=== PATIENT | female | born 1990 | race Caucasian/White ===

== ENCOUNTER 2023-08-09 13:42 | Emergency (ER) | payer BC, SELFPAY ==
[2023-08-09 14:45] VITALS: BP 138/86; PULSE 84; RESP 20; TEMP 36.7; O2SAT 99; BMI 41.0
--- NOTE | 2023-08-09 15:04 | EXP.UTC ---
Discharge Plan Disposition Patient Disposition: Home, Self-Care Condition: Good Prescriptions Prescriptions: New meclizine 25 mg tablet 25 mg PO TID PRN (Reason: dizziness) Qty: 12 0RF ondansetron 4 mg tablet,disintegrating 4 mg PO Q8H PRN (Reason: nausea and vomiting) Qty: 10 0RF No Action cetirizine 10 mg tablet 10 mg PO DAILY methylphenidate HCl [Concerta] 54 mg tablet extended release 24hr 54 mg PO DAILY gabapentin 300 mg capsule 300 mg PO DAILY mirtazapine 15 mg tablet 15 mg PO DAILY hydroxyzine pamoate 25 mg capsule 25 mg PO HS duloxetine 60 mg capsule,delayed release(DR/EC) 60 mg PO DAILY Xiidra 5 % dropperette 1 drp ophthalmic (eye) DAILY Referrals Follow up/Referrals: Provider,Referral, MD [Primary Care Provider] - See instructions Activity Restrictions/Add. Instructions Additional Instructions/Restrictions: Take meclizine as prescribed for dizziness Follow up with your Family Doctor if symptoms continue Slow steady movements Follow up with Eye Doctor for eye exam Straight to ER if any life threatening symptoms Clinical Impressions Clinical Impression: Vertigo Instructions Patient Instructions: DI for Vertigo, Vertigo, Meclizine, DI for Nausea -- Adult Discharge ED Provider: Dionne Manzanares [facility] General Stated complaint: possible flu Mode of Arrival: Ambulatory Source of Information: Patient Limitations: No Limitations Time Seen by Provider: 08/09/23 15:04 Description of Symptoms (Recalled from Triage Doc. by RN): PATIENT C/O STOMACH CRAMPS, NAUSEA, VOMITING, DIZZINESS, HEADACHE, LIGHT/SOUND SENSITIVITY, AND VISION CHANGES THAT STARTED WEDNESDAY NIGHT HEENT Symptoms (Recalled from RN notes): Yes Resp Symptoms (Recalled from RN notes): No Skin Symptoms (Recalled from RN notes): No MS Symptoms (Recalled from RN notes): No Functional Status (Recalled from RN notes): WNL History of Present Illness Provider Complaint: Patient states that she has a hx of vertigo and she has been under alot of stress States that she has been having dizziness on and off, nausea and vomiting on and off States that she does limit her gluten intake and she eat gluten on Wednesday and not sure if that may have caused that or not, chills and did have a little light sensativity over the weekend and she has been having that on and off but today she was still feeling a little dizzy and having nausea so she came in worried she may have flu Related Data Home Medications Medication Instructions Recorded Confirmed cetirizine 10 mg tablet 10 mg PO DAILY 08/09/23 08/09/23 duloxetine 60 mg capsule,delayed 60 mg PO DAILY 08/09/23 08/09/23 release gabapentin 300 mg capsule 300 mg PO DAILY 08/09/23 08/09/23 hydroxyzine pamoate 25 mg capsule 25 mg PO HS 08/09/23 08/09/23 lifitegrast 5 % eye drops in a 1 drp ophthalmic (eye) DAILY 08/09/23 08/09/23 dropperette (Xiidra) methylphenidate HCl 54 mg 54 mg PO DAILY 08/09/23 08/09/23 tablet,extended release 24 hr (Concerta) mirtazapine 15 mg tablet 15 mg PO DAILY 08/09/23 08/09/23 Previous Rx's Medication Instructions Recorded meclizine 25 mg tablet 25 mg PO TID PRN dizziness #12 tabs 08/09/23 ondansetron 4 mg disintegrating 4 mg PO Q8H PRN nausea and 08/09/23 tablet vomiting #10 tabs Allergies Allergy/AdvReac Type Severity Reaction Status Date / Time No Known Allergies Allergy Verified 08/09/23 15:03 Worker's Comp Is this a Worker's Comp case?: No [facility] Disclaimer: The information contained in this section may have been updated after the patient was seen, as this information can be updated by other users. Medical History (Updated 08/09/23 @ 15:37 by Dionne Manzanares APRN) Anxiety Depression Surgical History (Updated 08/09/23 @ 15:05 by Jessica Back RN) History of nasal septoplasty Social History Smoking Status: Unknown if ever smoked alcohol intake: never current occupational status: unemployed Travel in the last 8 weeks: None ROS Obtained: Yes All systems reviewed & no additional complaints except as documented and Yes Systems reviewed as appropriate & no additional complaints except as documented Constitutional Constitutional: Reports system reviewed and no additional complaints, except as documented, Reports as per HPI and Reports headache(s) (on and off over the weekend) Eyes Eyes: Reports system reviewed and no additional complaints, except as documented, Reports as per HPI, Denies blurry vision, Denies diplopia, Denies eye discharge, Denies floaters, Denies loss of vision and Reports sensitivity to light (at times on and off for awhile) ENT Ears, Nose, Mouth, and Throat: Reports system reviewed and no additional complaints, except as documented, Reports as per HPI, Reports dizziness (with movement), Reports headache(s) (on and off over the weekend) and Reports vertigo Cardiovascular Cardiovascular: Reports system reviewed and no additional complaints, except as documented and Reports as per HPI Respiratory Respiratory: Reports system reviewed and no additional complaints, except as documented and Reports as per HPI Gastrointestinal Gastrointestingal: Reports system reviewed and no additional complaints, except as documented, as per HPI, nausea and vomiting Genitourinary Female Genitourinary: Reports system reviewed and no additional complaints, except as documented and Reports as per HPI Musculoskeletal Musculoskeletal: Reports system reviewed and no additional complaints, except as documented and Reports as per HPI Neurologic Neurologic: Reports system reviewed and no additional complaints, except as documented, Reports as per HPI, Reports dizziness (with movement), Reports headache(s) (on and off over the weekend), Denies loss of vision and Reports vertigo Physical Exam General General appearance: alert and in no apparent distress Eye Eye exam: Present normal appearance, PERRL and EOMI ENT ENT exam: Present mucous membranes moist Chest Chest inspection: Present normal inspection and symmetric chest wall rise Respiratory Respiratory exam: Present normal lung sounds bilaterally; Absent respiratory distress or wheezes Cardiovascular Cardiovascular exam: Present regular rate, normal rhythm and normal heart sounds Abdominal Exam Abdominal exam: Present soft and normal bowel sounds; Absent distention or tenderness Neurological Exam Neurological exam: Present alert, oriented X3 and normal gait Medical Decision Making Jarek Inquiry Pt receiving controlled substance: No Jarek was queried for this patient: No Vital Signs: 08/09/23 14:45 Temperature 98.0 F Temperature Source Oral Pulse Rate [Left Brachial] 84 Respiratory Rate 20 Blood Pressure [Left Arm] 138/86 Blood Pressure Mean [Left Arm] 103 Blood Pressure Source [Left Arm] Automatic Cuff Blood Pressure Position [Left Arm] Sitting 02 Sat by Pulse Oximetry 99 Oxygen Delivery Method Room Air Lab Data Lab results reviewed: Yes I reviewed the patient's lab results. Medical Decision Narrative: Patient states that she is no longer taking hydroxyzine Discussed transfer to the ED for further work up and evaluation and patient declined States that she use to take Meclizine for dizziness medication discussed with pharmacy
[2023-08-09 15:05] LABS: UTC Influenza A Antigen Negative (Negative); UTC Influenza B Antigen Negative (Negative)
[2023-08-09 15:23] LABS: UTC Pregnancy Test, Urine Negative (Negative)
[2023-08-09 15:28] VITALS: BP 138/86; PULSE 84; RESP 20; TEMP 36.7; O2SAT 99
== END 2023-08-09 15:44 | disposition home or self-care (01) ==
PROVIDERS: Emergency Provider Nurse Practitioner
DX: R42 Dizziness and giddiness (principal); R11.2 Nausea with vomiting, unspecified; R51.9 Headache, unspecified
CPT/HCPCS: 81025; 87804; 99204; 99212; G0463

== ENCOUNTER 2023-09-13 12:38 | Outpatient (CLI) | payer BC, SELFPAY ==
[2023-09-13 13:24] LABS: Basophils # 0.1 K/mm3 (0-0.2); Basophils % 1.2 % (0.1-2.0); Eosinophils # 0.2 K/mm3 (0.0-0.4); Eosinophils % 3.1 % (0.1-12.0); Hematocrit 43.9 % (37.0-47.0); Hemoglobin 14.3 g/dL (12.2-16.2); Lymphocytes # 1.7 K/mm3 (0.7-4.5); Lymphocytes % 24.3 % (10-50); Mean Corpuscular HGB Conc 32.6 g/dL (31.8-35.4); Mean Corpuscular Hemoglobin 28.9 pg (27.0-31.2); Mean Corpuscular Volume 88.4 fl (81-99); Mean Platelet Volume 8.3 fl (7.4-10.4); Monocytes # 0.3 K/mm3 (0.1-1.0); Monocytes % 3.8 % (1.7-9.3); Neutrophils # 4.7 K/mm3 (1.8-7.8); Neutrophils % 67.6 % (37.0-80.0); Platelet Count 252 K/mm3 (142-424); Red Blood Count 4.96 M/mm3 (4.20-5.40); Red Cell Distribution Width 14.8 % (11.5-17.5); White Blood Count 6.9 K/mm3 (4.8-10.8)
[2023-09-13 14:19] LABS: Alanine Aminotransferase 23 U/L (12-78); Albumin Level 4.1 g/dl (3.5-5.0); Albumin/Globulin Ratio 1.6 (1.1-1.8); Alkaline Phosphatase 125 U/L (38-126); Anion Gap 11.1 mEq/L (5-15); Aspartate Amino Transferase 29 U/L (14-36); Bilirubin,Total 0.6 mg/dl (0.2-1.3); Blood Urea Nitrogen 16 mg/dl (7-17); Calcium 9.5 mg/dl (8.4-10.2); Carbon Dioxide 27 mmol/L (22.0-30.0); Chloride 107 mmol/L (98-107); Chol/HDL Ratio 5.7 (1-3.5); Cholesterol 238 mg/dl (140-200); Estimated Glomerular Filt Rate 79 ml/min (>60); GFR (African American) 96 ML/MIN (>60); Globulin 2.5 g/dL (1.3-3.2); Glucose 103 mg/dl (74-100); HDL Cholesterol 42 mg/dl (40-60); Potassium 4.1 mmoL/L (3.5-5.1); Sodium 141 mmol/L (136-145); Total Protein,Serum 6.6 g/dl (6.3-8.2); Triglycerides 134 mg/dl (30-150); VLDL Cholesterol 27 mg/dL (0-40)
[2023-09-13 14:30] LABS: Direct LDL Cholesterol 133.45 mg/dL (100-129)
[2023-09-13 14:34] LABS: Free T4 (Free Thyroxine) 0.98 ng/dl (0.78-2.19)
[2023-09-13 14:36] LABS: 25-OH Vitamin D, Total 43.4 ng/mL (30-100)
[2023-09-13 14:49] LABS: Thyroid Stimulating Hormone 0.09 uIU/mL (0.465-4.68)
[2023-09-13 16:01] LABS: Hemoglobin A1C 5.4 % (4.0-6.0)
== END 2023-09-13 23:59 ==
LOC: RT 12:39
PROVIDERS: PCP Student in an Organized Health Care Education/Training Program; Visit Provider Student in an Organized Health Care Education/Training Program
DX: R42 Dizziness and giddiness (principal); R41.0 Disorientation, unspecified; E66.9 Obesity, unspecified; Z68.43 Body mass index [BMI] 50.0-59.9, adult; Z13.29 Encounter for screening for other suspected endocrine disorder; Z13.21 Encounter for screening for nutritional disorder; Z13.1 Encounter for screening for diabetes mellitus; Z79.899 Other long term (current) drug therapy
CPT/HCPCS: 36415; 80053; 80061; 82306; 83036; 84439; 84443; 85025; 93225

== ENCOUNTER 2023-09-23 14:06 | Emergency (ER) | payer BC, SELFPAY ==
[2023-09-23 14:07] VITALS: BP 129/85; PULSE 93; RESP 15; TEMP 36.6; O2SAT 95; BMI 38.4
[2023-09-23 14:30] VITALS: BP 132/80; PULSE 85; O2SAT 94
--- NOTE | 2023-09-23 14:44 | CT_ITS ---
FINAL REPORT TECHNIQUE: Axial images were obtained of the lumbar spine by computed tomography. Coronal and sagittal reconstruction process performed. This study was performed with techniques to keep radiation doses as low as reasonably achievable (ALARA). Individualized dose reduction techniques using automated exposure control or adjustment of mA and/or kV according to the patient''s size were employed. CLINICAL HISTORY: low back pain with new L sciatica COMPARISON: None FINDINGS: Lumbar vertebrae show normal height. There is no malalignment. There is 14 degrees of lumbar scoliosis convex to the right. There are mild hypertrophic changes in the lower lumbar facets. There is moderate to high-grade right neuroforaminal narrowing at L5-S1. IMPRESSION: Degenerative changes as above without acute bony abnormality. Reviewed, Interpreted and Dictated by Krish Byers MD Transcribed by Aracelis Cody Authenticated and [facility]
[2023-09-23 14:47] LABS: Microscopic, Urine URINE MICROSCOPIC (MICROSCOPIC)
--- NOTE | 2023-09-23 14:47 | ED_ITS ---
Discharge Plan Disposition Patient Disposition: Home, Self-Care Chief Complaint: Back Pain/Injury Prescriptions Prescriptions: No Action ondansetron 4 mg tablet,disintegrating 4 mg PO Q8H PRN (Reason: nausea and vomiting) Qty: 20 0RF cetirizine 10 mg tablet 10 mg PO DAILY methylphenidate HCl [Concerta] 54 mg tablet extended release 24hr 54 mg PO DAILY mirtazapine 15 mg tablet 15 mg PO DAILY duloxetine 60 mg capsule,delayed release(DR/EC) 120 mg PO DAILY gabapentin 300 mg capsule 900 mg PO HS Referrals Follow up/Referrals: Kat Gill PA [Primary Care Provider] - See instructions Activity Restrictions/Add. Instructions Additional Instructions/Restrictions: At this time it was felt you are safe to be discharged home. If new or worsening symptoms please do not hesitate to return the emergency department. Please follow-up with your family doctor as you are able for possible referral to physical therapy with Kwame Polanco here at the hospital. Please continue to follow-up with your pain practice as discussed. Clinical Impressions Clinical Impression: Back pain, Radiculopathy Instructions Patient Instructions: DI for Low Back Pain Discharge ED Provider: Mona Pollack General Adult HPI <Mona Pollack DO - Last Filed: 09/23/23 15:44> General Chief complaint: Back Pain/Injury Stated complaint: back pain, no accident Time Seen by Provider: 09/23/23 14:12 Mode of Arrival: Ambulatory Source of Information: Patient Limitations: No Limitations Description of Symptoms (Recalled from ER Triage Doc. by RN): patient ambulatory to ED with complaints of acute on chronic back pain that has progressively gotten worse x1week. Pain in lower back and radiating down left leg. Patient only able to tolerate seating position today. Experiencing no relief with medication. History of Present Illness HPI narrative: This patient is a 43-year-old female with history of chronic pain on gabapentin, generalized anxiety disorder, and major depressive disorder presenting to the emergency department for evaluation with concern for back pain. According to the patient, she has had chronic low back pain from disc herniation for a while now. She takes gabapentin for the pain. Typically the pain is localized to her back, but she has had new pain that is radiating from her back all the way down her left leg, especially into her left heel. She states that it also is wrapping around into her groins. Secondary to the pain, she has had inability to walk for the last 2 days. She has pins and needle sensation down her left leg, but she denies saddle anesthesia, incontinence, retention, or other concerns. Her tried to get her to come in yesterday but she was in so much pain that she was unable to move. Today her pain is better, but she is still having trouble walking secondary to the pain. She denies any fevers, chills, vomiting, changes in bowel movements, urinary symptoms, or other concerns. She has tried Advil, ice, and her home gabapentin with no improvement. She has not had back imaging for years now. Related Data Home Medications Medication Instructions Recorded Confirmed cetirizine 10 mg tablet 10 mg PO DAILY 08/09/23 09/14/23 methylphenidate HCl 54 mg 54 mg PO DAILY 08/09/23 09/14/23 tablet,extended release 24 hr (Concerta) mirtazapine 15 mg tablet 15 mg PO DAILY 08/09/23 09/14/23 duloxetine 60 mg capsule,delayed 120 mg PO DAILY 09/03/23 09/14/23 release gabapentin 300 mg capsule 900 mg PO HS 09/03/23 09/14/23 Previous Rx's Medication Instructions Recorded ondansetron 4 mg disintegrating 4 mg PO Q8H PRN nausea and 09/03/23 tablet vomiting #20 tabs Allergies Allergy/AdvReac Type Severity Reaction Status Date / Time gluten AdvReac Abdominal Uncoded 09/14/23 13:49 Pain lactose AdvReac Abdominal Uncoded 09/14/23 13:49 Pain PFSH <Mona Pollack DO - Last Filed: 09/23/23 15:44> [facility] Disclaimer: The information contained in this section may have been updated after the patient was seen, as this information can be updated by other users. Medical History Arthritis Vertigo Osteoarthritis PTSD (post-traumatic stress disorder) Depression Anxiety Surgical History History of nasal septoplasty Family History Other Cancer Cutaneous lupus erythematosus Heart attack Hypertension Thyroid disorder Social History (Reviewed 09/23/23 @ 14:49 by SUZANNE Montez Smoking Status: Current every day smoker alcohol intake: never current occupational status: unemployed and disabled Travel in the last 8 weeks: None <Mona Pollack DO - Last Filed: 09/23/23 15:44> ROS Obtained: Yes All systems reviewed & no additional complaints except as documented Physical Exam <Mona Pollack DO - Last Filed: 09/23/23 15:44> General General appearance: alert and obese Comment: Uncomfortable appearing Head Head exam: atraumatic and normocephalic Eye Eye exam: Present normal appearance, PERRL and EOMI ENT ENT exam: Present normal exam, normal oropharynx, mucous membranes moist and normal external ear exam Neck Neck exam: Present normal inspection, full ROM and trachea midline; Absent tenderness Chest Chest inspection: Present normal inspection and symmetric chest wall rise; Absent tenderness Respiratory Respiratory exam: Present normal lung sounds bilaterally; Absent respiratory distress, wheezes, stridor or accessory muscle use Cardiovascular Cardiovascular exam: Present regular rate and normal rhythm Abdominal Exam Abdominal exam: Present soft; Absent distention, tenderness or guarding Extremities Exam Extremities exam: Present normal inspection, full ROM and normal capillary refill; Absent tenderness or edema Back Exam Back exam: Present full ROM, tenderness, muscle spasm, paraspinal tenderness and vertebral tenderness Neurological Exam Neurological exam: Present alert, oriented X3, CN II-XII intact and normal gait; Absent motor sensory deficit Psychiatric Psychiatric exam: Present normal affect and normal mood Skin Skin exam: Present warm and dry Medical Decision Making <Mona Pollack DO - Last Filed: 09/23/23 15:44> Medical Records Medical records reviewed: Yes I reviewed the patient's medical records. Jarek Inquiry Pt receiving controlled substance: No Vital Signs: 09/23/23 14:07 09/23/23 14:30 09/23/23 15:11 Temperature 97.8 F Temperature Source Oral Pulse Rate 85 85 Pulse Rate [Right] 93 H Respiratory Rate 15 20 Blood Pressure 132/80 120/76 Blood Pressure [Right Arm] 129/85 Blood Pressure Mean 90 Blood Pressure Mean [Right Arm] 99 Blood Pressure Source [Right Arm] Automatic Cuff Blood Pressure Position [Right Arm] Sitting 02 Sat by Pulse Oximetry 95 94 L 95 Oxygen Delivery Method Room Air 09/23/23 15:30 09/23/23 16:00 Temperature Temperature Source Pulse Rate 84 78 Pulse Rate [Right] Respiratory Rate 18 Blood Pressure 120/77 124/77 Blood Pressure [Right Arm] Blood Pressure Mean 90 92 Blood Pressure Mean [Right Arm] Blood Pressure Source [Right Arm] Blood Pressure Position [Right Arm] 02 Sat by Pulse Oximetry 93 L 95 Oxygen Delivery Method Lab Data Lab results reviewed: Yes I reviewed the patient's lab results. Lab Results 09/23/23 14:09: Urine Color Yellow, Urine Appearance Clear, Urine pH 5.5, Ur Specific Edmond >= 1.030, Urine Protein Negative, Urine Glucose (UA) Trace, Urine Ketones Trace, Urine Blood Negative, Urine Nitrate Negative, Urine Bilirubin Negative, Urine Urobilinogen 0.2, Ur Leukocyte Esterase Negative, Urine RBC None, Urine WBC None, Ur Squamous Epith Cells Occasional, Calcium Oxalate Crystal 1+, Urine Bacteria Trace, Urine HCG, Qual Negative Orders (Tests/Meds): ED MEDICATIONS Discontinued Medications Generic Name Dose Route Start Last Admin Trade Name Freq PRN Reason Stop Dose Admin Acetaminophen 1,000 mg 09/23/23 14:43 09/23/23 14:56 Acetaminophen 500mg Tab PO 09/23/23 14:44 1,000 mg ONCE ONE Administration Dexamethasone Sodium Phosphate 10 mg 09/23/23 14:43 09/23/23 14:55 Dexamethasone 4mg/Ml 1ml Vial IV 09/23/23 14:44 10 mg ONCE ONE Administration Diazepam 5 mg 09/23/23 14:43 09/23/23 14:56 Diazepam 5mg Tablet PO 09/23/23 14:44 5 mg ONCE ONE Administration Ketorolac Tromethamine 30 mg 09/23/23 14:43 09/23/23 14:56 Ketorolac 30mg/Ml Vial IV 09/23/23 14:44 30 mg ONCE ONE Administration Lidocaine 1 each 09/23/23 14:43 09/23/23 14:56 Lidocaine 5% Transdermal Patch TP 09/23/23 14:44 1 each ONCE ONE Administration ORDERS Category Date Time Status CT lumbar spine wo con Stat Cat Scan 09/23/23 14:44 Completed Urinalysis and Microscopic Stat Lab 09/23/23 14:09 Completed Urine , HCG Qual. Stat Lab 09/23/23 14:09 Completed Medical Decision Narrative: In summary, this patient is a 43-year-old female presenting to the Emergency Department for evaluation of severe low back pain radiating down her left leg and around to her bilateral groins. Differential diagnoses considered include but are not limited to lumbar strain with sciatica, disc herniation, lumbar fracture, musculoskeletal strain/sprain, pyonephritis, ureterolithiasis, cystitis, cauda equina syndrome, spinal cord compression. Ruling out the most morbid conditions drove assessment. On exam, the patient is uncomfortable appearing with low back tenderness. Her pain is likely musculoskeletal given the nature and the fact that it radiates down her left leg, however she has unusual sensation of radiating around to her groin, which she states is new. She has no saddle anesthesia, incontinence, retention, or other findings that would suggest spinal cord compression or cauda equina syndrome. No fevers or high risk activity that would suggest epidural/spinal abscess. I had a discussion with the patient regarding the fact that MRI is the best test for the spine, however given that she does not have alarm symptoms for spinal compression, we cannot get this here. After discussion, she would like to proceed with CT scan for evaluation. Workup included urinalysis, urine test, and CT lumbar spine without IV contrast. Patient was signed out to the oncoming provider, Dr. Lawrence, pending workup, r eassessment, and disposition. <Florentino Lawrence MD - Last Filed: 09/23/23 16:32> Vital Signs: 09/23/23 14:07 09/23/23 14:30 09/23/23 15:11 Temperature 97.8 F Temperature Source Oral Pulse Rate 85 85 Pulse Rate [Right] 93 H Respiratory Rate 15 20 Blood Pressure 132/80 120/76 Blood Pressure [Right Arm] 129/85 Blood Pressure Mean 90 Blood Pressure Mean [Right Arm] 99 Blood Pressure Source [Right Arm] Automatic Cuff Blood Pressure Position [Right Arm] Sitting 02 Sat by Pulse Oximetry 95 94 L 95 Oxygen Delivery Method Room Air 09/23/23 15:30 09/23/23 16:00 Temperature Temperature Source Pulse Rate 84 78 Pulse Rate [Right] Respiratory Rate 18 Blood Pressure 120/77 124/77 Blood Pressure [Right Arm] Blood Pressure Mean 90 92 Blood Pressure Mean [Right Arm] Blood Pressure Source [Right Arm] Blood Pressure Position [Right Arm] 02 Sat by Pulse Oximetry 93 L 95 Oxygen Delivery Method Lab Data Lab Results 09/23/23 14:09: Urine Color Yellow, Urine Appearance Clear, Urine pH 5.5, Ur Specific Edmond >= 1.030, Urine Protein Negative, Urine Glucose (UA) Trace, Urine Ketones Trace, Urine Blood Negative, Urine Nitrate Negative, Urine Bilirubin Negative, Urine Urobilinogen 0.2, Ur Leukocyte Esterase Negative, Urine RBC None, Urine WBC None, Ur Squamous Epith Cells Occasional, Calcium Oxalate Crystal 1+, Urine Bacteria Trace, Urine HCG, Qual Negative Orders (Tests/Meds): ED MEDICATIONS Discontinued Medications Generic Name Dose Route Start Last Admin Trade Name Alexa PRN Reason Stop Dose Admin Acetaminophen 1,000 mg 09/23/23 14:43 09/23/23 14:56 Acetaminophen 500mg Tab PO 09/23/23 14:44 1,000 mg ONCE ONE Administration Dexamethasone Sodium Phosphate 10 mg 09/23/23 14:43 09/23/23 14:55 Dexamethasone 4mg/Ml 1ml Vial IV 09/23/23 14:44 10 mg ONCE ONE Administration Diazepam 5 mg 09/23/23 14:43 09/23/23 14:56 Diazepam 5mg Tablet PO 09/23/23 14:44 5 mg ONCE ONE Administration Ketorolac Tromethamine 30 mg 09/23/23 14:43 09/23/23 14:56 Ketorolac 30mg/Ml Vial IV 09/23/23 14:44 30 mg ONCE ONE Administration Lidocaine 1 each 09/23/23 14:43 09/23/23 14:56 Lidocaine 5% Transdermal Patch TP 09/23/23 14:44 1 each ONCE ONE Administration ORDERS Category Date Time Status CT lumbar spine wo con Stat Cat Scan 09/23/23 14:44 Completed Urinalysis and Microscopic Stat Lab 09/23/23 14:09 Completed Urine , HCG Qual. Stat Lab 09/23/23 14:09 Completed Medical Decision Narrative: In summary, this patient is a 43-year-old female presenting to the Emergency Department for evaluation of severe low back pain radiating down her left leg and around to her bilateral groins. Differential diagnoses considered include but are not limited to lumbar strain with sciatica, disc herniation, lumbar fracture, musculoskeletal strain/sprain, pyonephritis, ureterolithiasis, cystitis, cauda equina syndrome, spinal cord compression. Ruling out the most morbid conditions drove assessment. On exam, the patient is uncomfortable appearing with low back tenderness. Her pain is likely musculoskeletal given the nature and the fact that it radiates down her left leg, however she has unusual sensation of radiating around to her groin, which she states is new. She has no saddle anesthesia, incontinence, retention, or other findings that would suggest spinal cord compression or cauda equina syndrome. No fevers or high risk activity that would suggest epidural/spinal abscess. I had a discussion with the patient regarding the fact that MRI is the best test for the spine, however given that she does not have alarm symptoms for spinal compression, we cannot get this here. After discussion, she would like to proceed with CT scan for evaluation. Workup included urinalysis, urine test, and CT lumbar spine without IV contrast. Patient was signed out to the oncoming provider, Dr. Lawrence, pending workup, reassessment, and disposition. Florentino Lawrence: Upon assumption of care patient was hemodynamically stable. Urinalysis interpreted by me and not consistent with infection, no hematuria. CT imaging of the lumbar spine shows degenerative changes without acute bony abnormality. Upon repeat evaluation patient was ambulatory at bedside without red flag symptoms and is appropriate for outpatient management at this time. Critical Care <Mona Pollack, DO - Last Filed: 09/23/23 15:44> Critical Care Time Critical Care Time: No
[2023-09-23 14:55] LABS: Appearance,Urine CLEAR (Clear); Bilirubin,Urine Negative (Negative); Blood, Urine Negative (Negative); Color,Urine YELLOW (Yellow); Glucose,Urine (UA) TRACE (Negative); Ketones,Urine TRACE (Negative); Leukocyte Esterase,Urine Negative (Negative); Nitrate,Urine Negative (Negative); PH,Urine 5.5 (5.0-8.5); Protein,Urine Negative (Negative); Specific Gravity, Urine >= 1.030 (1.005-1.030); Urobilinogen,Urine 0.2 EU/dl (0.2)
[2023-09-23] MEDS: DEXAMETHASONE 4MG/ML 1ML VIAL 10 MG IV (14:55)
[2023-09-23] MEDS: LIDOCAINE 5% TRANSDERMAL PATCH 1 EACH TP (14:56)
[2023-09-23] MEDS: KETOROLAC 30MG/ML VIAL 30 MG IV (14:56)
[2023-09-23] MEDS: ACETAMINOPHEN 500MG TAB 1000 MG PO (14:56)
[2023-09-23] MEDS: diazePAM 5MG TABLET 5 MG PO (14:56)
[2023-09-23 14:57] LABS: Urine Pregnancy, HCG Qual. Negative (Negative)
[2023-09-23 15:11] VITALS: BP 120/76; PULSE 85; RESP 20; O2SAT 95
[2023-09-23 15:30] VITALS: BP 120/77; PULSE 84; O2SAT 93
[2023-09-23 15:39] LABS: Bacteria,Urine Trace /lpf; Calcium Oxalate Crystals,Urine 1+ /lpf; Squamous Epithelial Cell,Urine Occasional #/hpf (0-5)
[2023-09-23 16:00] VITALS: BP 124/77; PULSE 78; RESP 18; O2SAT 95
--- NOTE | 2023-09-23 16:29 | PC.NURSE ---
Patient ambulated with TRN around nurses station and tolerated well. patient states that back pain is better rating pain 4/10.
[2023-09-23 16:33] VITALS: BP 124/77; PULSE 82; RESP 14; TEMP 36.7; O2SAT 98
== END 2023-09-23 16:50 | disposition home or self-care (01) ==
PROVIDERS: Emergency Provider Emergency Medicine; PCP Student in an Organized Health Care Education/Training Program
DX: M54.16 Radiculopathy, lumbar region (principal); M54.50 Low back pain, unspecified; G89.29 Other chronic pain; F41.1 Generalized anxiety disorder; F32.9 Major depressive disorder, single episode, unspecified; F17.200 Nicotine dependence, unspecified, uncomplicated
CPT/HCPCS: 72131; 81001; 81025; 96374; 96375; 99284

== ENCOUNTER 2023-09-27 19:30 | Outpatient (CLI) | payer BC, SELFPAY ==
[2023-09-27 19:21] LABS: Free Thyroxine Index 3.2 ug/dL (5.93-13.13); T4 (Thyroxine) 10.2 ug/dl (5.53-11.0); Triiodothryronine (T3) Uptake 31 % (23.5-40.5)
[2023-09-29 09:09] LABS: Thyroid Peroxidase Antibodies 18 IU/mL (0-34)
[2023-09-30 07:18] LABS: Thyroid Stimulating Immunoglob <0.10 IU/L (0.00-0.55)
== END 2023-09-27 23:59 ==
LOC: LAB.DROPOF 19:30
PROVIDERS: PCP Student in an Organized Health Care Education/Training Program; Visit Provider Student in an Organized Health Care Education/Training Program
DX: R79.89 Other specified abnormal findings of blood chemistry (principal)
CPT/HCPCS: 84436; 84443; 84445; 84479; 86376

== ENCOUNTER 2023-11-11 13:47 | Outpatient (POV) | payer BC, SELFPAY ==
--- OUTSIDE RECORDS SUMMARY | 2023-11-11 13:49 | XMS_ITS ---
Author Name Unknown Address [address] [place] [address] Phone Organization [facility] , [facility] Address [address] [place] [address] Phone Care Team Providers Care Slide Machine Tender Name Role Phone Alfredo Gilbert MD Unavailable [phone] Iban King Primary Care Provider [phone] Problems Includes: Active, inactive, and resolved Problems All Visits Onset Date Resolved Date Provider Condition S tatus Lower Back Pain 10/25/2023 Padma blount MD Active Last Documented On 4 1:42PM ; [facility] Joint Pain in Both Knees 09/01/2023 Lake underwood MD Active Last Documented On 4 2:38PM ; [facility] Plan of Treatment Instructions to patient Lose weight Last Documented On 4 1:43PM ; [facility], [facility] Assessments Includes: Assessments for all patient encounters Findings Encounter Date Overweight NEW PROBLEM/EST PT with Padma Crane MD 10/25/2023 Last Documented On 4 3:50PM ; [facility], [facility] Instructions Includes: Instructions for all patient encounters Instructions to patient Lose weight Last Documented On 4 1:43PM ; [facility], [facility] Medical Equipment - Implanted Devices Includes: Current and historical Devices No Medical Equipment Recorded Medications Includes: Current and historical Medications No Medications Taken Medications Administered Includes: Administered Medications in patient's chart No Administered Medications Recorded Vital Signs Includes: Vital Signs from 11/10/2022 through 11/11/2023 Vital Name 10/25/2023 01:43P 09/01/2023 02: 44P Height (in) 69 69 Weight (lb) 278 265 Body Mass Index 41.1 39.1 Body Surface Area 2.4 2.3 Note: HL cl Last Documented: On 10/25/2023 1:44PM ; [facility] On 09/01/2023 2:44PM ; [facility], [facility] Results Includes: Results from 11/10/2022 through 11/11/2023 No Results Recorded For Specified Dates History of Present Illness History of Present Illness not supported for this document type No History of Present Illness Recorded Social History Description Last Updated Tobacco non-user 09/01/2023 Last Documented On 4 11:20AM ; [facility], [facility] No caffeine use 09/01/2023 Last Documented On 4 11:20AM ; [facility] No recent change in diet 09/01/2023 Last Documented On 4 11:20AM ; [facility] Not a current smoker. 09/01/2023 Last Documented On 4 11:20AM ; [facility], [facility] Not exercising regularly 09/01/2023 Last Documented On 4 11:20AM ; [facility] Not using alcohol 09/01/2023 Last Documented On 4 11:20AM ; [facility] Not using drugs 09/01/2023 Last Documented On 4 11:20AM ; [facility] Smoking Status Unknown Procedures and Surgical History Includes: Procedures from 11/10/2022 through 11/11/2023 Procedures Code Diagnosis Performing Provider Service Location Service Date X-RAY EXAM KNEE 4 OR MORE (RIGHT) 48752 Unilateral primary osteoarthritis, right knee Lake Castle MD [facility] 09/01/2023 Last Documented On 4 2:09PM ; [facility], [facility] X-RAY EXAM KNEE 4 OR MORE (LEFT) 80013 Unilateral primary osteoarthritis, left knee Lake Castle MD [facility] 09/01/2023 Last Documented On 4 2:09PM ; [facility] Medical History Includes: Medical History in patient's chart Description Last Updated Past medical and surgical history non-co ntributory 09/01/2023 Last Documented On 4 11:20AM ; [facility] Family History Includes: Family History in patient's chart Description Last Updated No significant family history 09/01/2023 Last Documented On 4 11:20AM ; [facility] Review of Systems Review of Systems not supported for this document type No Review of Systems Recorded Mental Status Description No anxiety Functional Status No Functional Status Recorded Physical Exam Physical Exam not supported for this document type No Physical Exam Recorded Allergies Includes: Active, inactive, and resolved Allergies No Known Allergies Encounters Includes: Encounters from 11/10/2022 through 11/11/2023 Encounter Provider Location Date Check-In Time Check-Out Time Diagnosis NEW PROBLEM/EST PT Padma miguel MD [facility] 10/25/19 24 1:29PM 2:23PM Overweight Physician Specified Lake Castle MD [facility] 09/01/19 24 2:29PM 3:43PM Insurance Includes: Active Insurance Policies Plan Name Member ID Group # Subscriber Relationship Effect franco Dates 1 - [facility] Medicaid [id number] Aracelis Adler Self Clinical Notes Includes: Signed Clinical Notes starting from 06/11/2022 * Progress note Date Encounter Last Documented by 10/25/2023 NEW PROBLEM/EST PT Last document ed on 10/25/2023; 3:50 PM, Padma Crane MD; [facility] Active Problems & Conditions - Joint Pain in Both Knees - Lower Back Pain Chief Complaint The Chief Complaint is: Low back pain. Referred Here Referred by Self. History of Present Illness Aracelis Adler is a 43 year old female. - Allergy list reviewed - Problem list reviewed - Medication list reviewed - Previous history of new onset pain Injury is not work related or an automotive accident - Patient pain level from 1-10: 9 - Yes, previous treatment. - History of Home Exercise Medications used for this condition: This is a 43-year-old female seeing me for the 1st time today. She is here for evaluation of low back pain. She said she was told in the past that she is 3 herniated discs in her back and was told that she could have surgery but it probably would not work. Today, she reports severe pain down her left leg all the way into her heel. She also reported that over the past week she is lost control of her bowel and bladder multiple times. She denies any numbness in the areas. Current Medication - None Past Medical/Surgical History Past medical and surgical history non-contributory. Social History Not a current smoker. Current diet: No recent change in diet. Caffeine use: No caffeine use. Tobacco use: Tobacco non-user. Alcohol: Not using alcohol. Drug Use: Not using drugs. Habits: Not exercising regularly. Allergies - No Known Allergies Family History No significant family history Review Of Systems Systemic: Not feeling tired, no recent weight loss, and no recent weight gain. Head: No headache and no sinus pain. Eyes: No vision problems, no Cataracts, no Glasses/Contacts, and no Glaucoma. Otolaryngeal: No hearing loss and no tinnitus. Cardiovascular: No chest pain or discomfort, no palpitations, no Hypertension, and no High Cholesterol. Pulmonary: No daytime asthma symptoms and no chronic cough. No wheezing. Gastrointestinal: No heartburn and no abdominal pain. No Indigestion, no Acid Reflux, no Peptic Ulcer, no GI Stomach Bleed, and no Ulcers. Endocrine: No hot flashes, no muscle weakness, no Diabetes, no Hypothyroid, and no Hyperthyroid. Hematologic: No easy bleeding, no tendency for easy bruising, and no Anemia. Musculoskeletal: No Arthritis and no lower back pain. No soft tissue swelling and no localized joint pain. Neurological: No dizziness, no convulsions, and no numbness. Psychological: No anxiety, no emotional lability, no depression, and no insomnia. Not crying for no reason. Skin: No dry skin. No Ulcers, no Scars, and no rash. Allergic and Immunologic: No complaint of seasonal allergic reaction. Physical Findings - Vitals taken 10/25/2023 01:43 pm HL Height 69 in Weight 278 lbs Body Mass Index 41.1 kg/m2 Body Surface Area 2.4 m2 General: Alert and Oriented A&Ox3 Focused Musculoskeletal Exam of the Spine: Patient is able to ambulate in the room without assistive device No focal tenderness to palpation in the Lumbar Spine Motor HF KE AD EHL GS Right 5/5 5/5 5/5 5/5 5/5 Left 5/5 5/5 5/5 5/5 5/5 Sensation L2 L3 L4 L5 S1 Right 2 2 2 2 2 Left 2 2 2 1 1 Patellar reflex is 2+ bilaterally Achilles reflex is 2+ on the right, 1+ on the left No ankle clonus Symmetric, palpable posterior tibialis pulse bilaterally Tests X-ray lumbar spine. AP, lateral, L5-S1 spot shot views reviewed by me. There does appear to be transitional anatomy with no obvious fracture or spondylolisthesis User Defined 5 This is a 43-year-old female with concern for neurogenic bladder and potential cauda equina syndrome. It was interesting meeting Aracelis in the office today. I am going to send her right across the street to the [place] emergency room for a emergent stat MRI of the lumbar spine. We will follow up the results and discuss treatment options. We have contact [facility] ER to advise the patient will be coming over for symptoms and we recommend MRI lumbar spine. Assessment - Overweight Previous Tests Imaging: X-Ray: An X-ray was performed 06/03/2023 Liban @ [facility]. Counseling/Education - Lose weight Practice Management Use of tobacco assessment performed. Care Team - TED King Notes This dictation was done with voice recognition software and may contain errors and omissions. * Progress note Date Encounter Last Documented by 09/01/2023 Physician Specified Last shoaib woodward on 09/05/2023; 11:20 AM, Lake Castle MD; [facility], [facility] Active Problems & Conditions - Joint Pain in Both Knees Chief Complaint The Chief Complaint is: Bilateral knee pain. Referred Here Referred by. History of Present Illness Aracelis Adler is a 43 year old female. - Allergy list reviewed - Problem list reviewed - Medication list reviewed - Previous history of new onset pain Injury is not work related or an automotive accident - Patient pain level from 1-10: 7 - No previous treatment. Current Medication - None Past Medical/Surgical History Past medical and surgical history non-contributory. Social History Not a current smoker. Current diet: No recent change in diet. Caffeine use: No caffeine use. Tobacco use: Tobacco non-user. Alcohol: Not using alcohol. Drug Use: Not using drugs. Habits: Not exercising regularly. Allergies - No Known Allergies Family History No significant family history Review Of Systems Systemic: Not feeling tired, no recent weight loss, and no recent weight gain. Head: No headache and no sinus pain. Eyes: No vision problems, no Cataracts, no Glasses/Contacts, and no Glaucoma. Otolaryngeal: No hearing loss and no tinnitus. Cardiovascular: No chest pain or discomfort, no palpitations, no Hypertension, and no High Cholesterol. Pulmonary: No daytime asthma symptoms and no chronic cough. No wheezing. Gastrointestinal: No heartburn and no abdominal pain. No Indigestion, no Acid Reflux, no Peptic Ulcer, no GI Stomach Bleed, and no Ulcers. Endocrine: No hot flashes, no muscle weakness, no Diabetes, no Hypothyroid, and no Hyperthyroid. Hematologic: No easy bleeding, no tendency for easy bruising, and no Anemia. Musculoskeletal: No Arthritis and no lower back pain. No soft tissue swelling and no localized joint pain. Neurological: No dizziness, no convulsions, and no numbness. Psychological: No anxiety, no emotional lability, no depression, and no insomnia. Not crying for no reason. Skin: No dry skin. No Ulcers, no Scars, and no rash. Allergic and Immunologic: No complaint of seasonal allergic reaction. Physical Findings - Vitals taken 09/01/2023 02:44 pm cl Height 69 in Weight 265 lbs Body Mass Index 39.1 kg/m2 Body Surface Area 2.3 m2 Assessment HISTORY OF PRESENT ILLNESS The patient is a 43-year-old female who presents for evaluation of her bilateral knees. She reports she has had a longstanding history of at least 10 years of bilateral knee pain. Typically, the right is greater than left, but currently they seem to be equally bad. She has had conservative measures over the years including activity modification and physical therapy. She reports she has had a gel injection in the right knee 6 years ago, which did seem to help her at that point. In addition, she had a gel injection into the left knee, maybe more like 2 years ago, which was slightly less beneficial. She is quite fed up with her persistent symptoms of pain and really wants to discuss potentially moving forward with a total knee arthroplasty. PHYSICAL EXAM Well-appearing female in no acute distress. Evaluation of the right lower extremity shows skin to be intact. No effusion is present within the knee. She has got range of motion 0 to 125 degrees of flexion. She is stable to varus and valgus stress as well as anterior and posterior drawer. She is able to do a one straight leg raise with good quad activation. She has got 1A Destiney. She has got pain along the medial joint line, which reproduces the area of her symptoms. Evaluation of the left lower extremity shows skin to be intact. No effusion is present within the knee. She has got range of motion 0 to 125 degrees of flexion. She is stable to varus and valgus stress as well as anterior and posterior drawer. She is able to do a one straight leg raise with good quad activation. She has got 1A Destiney. She has got pain along the medial joint line, which reproduces the area of her symptoms. RESULTS Imaging Four views of the right knee and four views of the left knee were ordered and reviewed by me today. They do show near complete loss of joint space of the medial compartment of both the right and left knee. The patellofemoral joint of both the right and left knee shows moderate loss of joint space. No evidence of fractures or dislocations. ASSESSMENT AND PLAN 1. Moderate to advanced arthritic changes of the bilateral knees. We had a long discussion today regarding treatment options. Given her young age, I would be very hesitant to agree to want to move forward with total knees at this point. She has trialed conservative measures, but I think it may make sense to try further injections before deciding to proceed. Ultimately, I think if she really just wants to the joint replacement, I probably would refer her to one of my partners who does revision surgeries as I think given her young age, she might be at risk of needing a conversion to a revision prosthetic at a young age and I would want to get her set up with someone who would be more familiar with doing that from the beginning. We will plan on getting the gel injections precertified and for now, the plan will be for her to follow up with me to repeat those injections and see if we can buy her some time. She has tried offloader braces in both knees in the past, and I have encouraged her to use those intermittently as needed as well. We will have her return for the injections after they have been preapproved. If she would prefer to have the conversation about knee replacement, I will work on getting her a second opinion for that. Previous Tests Imaging: X-Ray: An X-ray was performed. Notes This dictation was done with voice recognition software and may contain errors and omissions. Practice Management Use of tobacco assessment performed. Care Team - TED King
--- OUTSIDE RECORDS SUMMARY | 2023-11-11 13:49 | XMS_ITS ---
Care Plan - [facility], [facility] Created on: November 11, 2023 Aracelis Adler : 02/24/1980 Sex: Female Author Name Unknown Address [address] [place] [address] [place] [address] Phone Organization [facility] , [facility] Address [address] [place] [address] Phone Care Team Providers Care Route Sales Delivery Drivers Supervisor Name Role Phone Alfredo Gilbert MD Unavailable [phone] Iban King Primary Care Provider [phone]
--- OUTSIDE RECORDS SUMMARY | 2023-11-11 13:50 | XMS_ITS | Clinical Summary ---
Author Name Unknown Address [address] [place] [address] Phone Organization [facility] , [facility] Address [address] [place] [address] Phone Care Team Providers Care Manager Asset Name Role Phone Alfredo Gilbert MD Unavailable [phone] Iban King Primary Care Provider [phone] Reason for Visit and Chief Complaint The Chief Complaint is: Low back pain Problems Includes: Problems addressed during this encounter and other active Problems Current Visit Onset Date Resolved Date Provider Conditio n Status Lower Back Pain 10/25/2023 Padma blount MD Active Last Documented On 4 1:42PM ; [facility], [facility] Past Visits Onset Date Resolved Date Provider Condition Status Joint Pain in Both Knees 09/01/2023 Lake Castle MD Active Last Documented On 4 2:38PM ; [facility], [facility] Plan of Treatment Instructions to patient Lose weight Last Documented On 4 1:43PM ; [facility], [facility] Assessments Includes: Assessments from this encounter Findings - Overweight - Last Documented On 10/25/2023 3:50PM ; [facility], [facility] We have contact [facility] ER to advise the patient will be coming over for symptoms and we recommend MRI lumbar spine. - Last Documented On 10/25/2023 3:50PM ; [facility], [facility] Instructions Includes: Instructions from this encounter Instructions to patient Lose weight Last Documented On 4 1:43PM ; [facility] Medical Equipment - Implanted Devices Includes: Current Devices No Medical Equipment Recorded Medications Includes: Medications discussed during this encounter and other current Medications No Medications Taken Medications Administered Includes: Administered Medications from this encounter No Administered Medications Recorded Vital Signs Includes: Vital Signs from this encounter Vital Name 10/25/2023 01:43P Height (in) 69 Weight (lb) 278 Body Mass Index 41.1 Body Surface Area 2.4 Note: HL Last Documented: On 10/25/2023 1:44PM ; [facility], [facility] Results Includes: Results discussed during this encounter No Results Recorded For Specified Dates History of Present Illness Includes: History of Present Illness from this encounter ED Adler is a 43 year old female. [...] She denies any numbness in the areas. Social History Description Last Updated Tobacco non-user 09/01/2023 Last Documented On 4 1:43PM ; [facility], [facility] No caffeine use 09/01/2023 Last Documented On 4 1:43PM ; [facility], [facility] No recent change in diet 09/01/2023 Last Documented On 4 1:43PM ; [facility], [facility] Not a current smoker. 09/01/2023 Last Documented On 4 1:43PM ; [facility], [facility] Not exercising regularly 09/01/2023 Last Documented On 4 1:43PM ; [facility], [facility] Not using alcohol 09/01/2023 Last Documented On 4 1:43PM ; [facility] Not using drugs 09/01/2023 Last Documented On 4 1:43PM ; [facility] Smoking Status Unknown Procedures and Surgical History Includes: Procedures from this encounter Procedures Code Diagnosis Performing Provider Service L ocation Service Date use of tobacco assessment performed 1000F Last Documented On 4 1:43PM ; [facility] an X-ray was performed 06/03/2023 LSpine @ [facility] [id number] Last Documented On 4 1:43PM ; [facility] Medical History Includes: Medical History addressed during this encounter Description Last Updated Past medical and surgical history non-co ntributory 09/01/2023 Last Documented On 4 1:43PM ; [facility] Family History Includes: Family History addressed during this encounter Description Last Updated No significant family history 09/01/2023 Last Documented On 4 1:43PM ; [facility] Review of Systems Includes: Review of Systems from this encounter Systemic: Not feeling tired, no recent weight [...] Immunologic: No complaint of seasonal allergic reaction. Mental Status Includes: Mental Status from this encounter Description No anxiety Functional Status Includes: Functional Status from this encounter No Functional Status Recorded Physical Exam Includes: Physical Exam from this encounter Allergies Includes: Active Allergies No Known Allergies Encounters Encounter Provider Location Date Check-In Time Check-Out Time Diagnosis NEW PROBLEM/EST PT Padma blount MD [facility] 24 1:29PM 2:23PM Overweight Insurance Includes: Active Insurance Policies Plan Name Member ID Group # Subscriber Relationship Effect franco Dates 1 - [facility] Medicaid [id number] Aracelis Adler Self Clinical Notes Includes: Clinical Notes from this encounter * Progress note Date Encounter Last Documented by 10/25/2023 NEW PROBLEM/EST PT Last document ed on 10/25/2023; 3:50 PM, Padma Crane MD; [facility] Active Problems & Conditions - [...] her right across the street to the [place] emergency room for a emergent stat MRI of the lumbar spine. We will follow up the results and discuss treatment options. We have contact [facility] ER to advise the patient will be coming over for symptoms and we recommend MRI lumbar spine. Assessment - Overweight Previous Tests Imaging: X-Ray: An X-ray was performed 06/03/2023 Liban @ [facility]. Counseling/Education - Lose weight Practice Management Use of tobacco assessment performed. Care Team - TED King Notes This dictation was done with voice recognition software and may contain errors and omissions.
--- OUTSIDE RECORDS SUMMARY | 2023-11-11 13:50 | XMS_ITS | Clinical Summary ---
Author Name Unknown Address [address] [place] [address] [place] [address] Phone Organization [facility] , [facility] Address [address] [place] [address] Phone Care Team Providers Care Coroner Forensic Technician Name Role Phone Alfredo Gilbert MD Unavailable [phone] Iban King Primary Care Provider [phone] Reason for Visit and Chief Complaint The Chief Complaint is: bilateral knee pain Problems Includes: Problems addressed during this encounter and other active Problems Current Visit Onset Date Resolved Date Provider Ed arevalo Status Lower Back Pain 10/25/2023 Padma blount MD Active Last Documented On 4 1:42PM ; [facility] Joint Pain in Both Knees 09/01/2023 Lake underwood MD Active Last Documented On 4 2:38PM ; [facility], [facility] Plan of Treatment No Plan of Treatment Recorded Assessments Includes: Assessments from this encounter Findings HISTORY OF PRESENT ILLNESS - Last Documented On 09/05/2023 11:20AM ; [facility], [facility] The patient is a 43-year-old female who presents for evaluation of her bilateral knees. - Last Documented On 09/05/2023 11:20AM ; [facility], [facility] She reports she has had a longstanding [...] moving forward with a total knee arthroplasty. - Last Documented On 09/05/2023 11:20AM ; [facility] PHYSICAL EXAM - Last Documented On 09/05/2023 11:20AM ; [facility] Well-appearing female in no acute distress. - Last Documented On 09/05/2023 11:20AM ; [facility] Evaluation of the right lower extremity shows [...] which reproduces the area of her symptoms. - Last Documented On 09/05/2023 11:20AM ; [facility] Evaluation of the left lower extremity shows [...] which reproduces the area of her symptoms. - Last Documented On 09/05/2023 11:20AM ; [facility] RESULTS - Last Documented On 09/05/2023 11:20AM ; [facility] Imaging - Last Documented On 09/05/2023 11:20AM ; [facility] Four views of the right knee and four views of the left knee were ordered and reviewed by me today. They do show near complete loss of joint space of the medial compartment of both the right and left knee. The patellofemoral joint of both the right and left knee shows moderate loss of joint space. No evidence of fractures or dislocations. - Last Documented On 09/05/2023 11:20AM ; [facility], [facility] ASSESSMENT AND PLAN - Last Documented On 09/05/2023 11:20AM ; [facility], [facility] 1. Moderate to advanced arthritic changes of the bilateral knees. - Last Documented On 09/05/2023 11:20AM ; [facility], [facility] We had a long discussion today regarding [...] getting her a second opinion for that. - Last Documented On 09/05/2023 11:20AM ; [facility], [facility] Medical Equipment - Implanted Devices Includes: Current Devices No Medical Equipment Recorded Medications Includes: Medications discussed during this encounter and other current Medications No Medications Taken Medications Administered Includes: Administered Medications from this encounter No Administered Medications Recorded Vital Signs Includes: Vital Signs from this encounter Vital Name 09/01/2023 02:44P Height (in) 69 Weight (lb) 265 Body Mass Index 39.1 Body Surface Area 2.3 Note: cl Last Documented: On 09/01/2023 2:44PM ; [facility], [facility] Results Includes: Results discussed during this encounter [...] from 1-10: 7 - No previous treatment. Social History Description Last Updated Tobacco non-user 09/01/2023 Last Documented On 4 11:20AM ; [facility] No caffeine use 09/01/2023 Last Documented On 4 11:20AM ; [facility] No recent change in diet 09/01/2023 Last Documented On 4 11:20AM ; [facility] Not a current smoker. 09/01/2023 Last Documented On 4 11:20AM ; [facility] Not exercising regularly 09/01/2023 Last Documented On 4 11:20AM ; [facility] Not using alcohol 09/01/2023 Last Documented On 4 11:20AM ; [facility] Not using drugs 09/01/2023 Last Documented On 4 11:20AM ; [facility] Smoking Status Unknown Procedures and Surgical History Includes: Procedures from this encounter Procedures Code Diagnosis Performing Provider Service Location Service Date X-RAY EXAM KNEE 4 OR MORE (RIGHT) 57549 Unilateral primary osteoarthritis, right knee Lake Castle MD [facility] 09/01/2023 Last Documented On 4 2:09PM ; [facility] X-RAY EXAM KNEE 4 OR MORE (LEFT) 38864 Unilateral primary osteoarthritis, left knee [facility] MD [facility] 09/01/2023 Last Documented On 4 2:09PM ; [facility] use of tobacco assessment performed 1000F Last Documented On 4 2:39PM ; [facility] an X-ray was performed [id number] Last Documented On 4 2:39PM ; [facility] Medical History Includes: Medical History addressed during this encounter Description Last Updated Past medical and surgical history non-co ntributory 09/01/2023 Last Documented On 4 11:20AM ; [facility] Family History Includes: Family History addressed during this encounter Description Last Updated No significant family history 09/01/2023 Last Documented On 11:20AM ; [facility] Review of Systems Includes: Review of Systems [...] Location Date Check-In Time Check-Out Time Diagnosis Physician Specified [facility] 09/01/19 24 2:29PM 3:43PM Insurance Includes: Active Insurance Policies Plan Name Member ID Group # Subscriber Relationship Effect franco Dates 1 - [facility] Medicaid [id number] Aracelis Leone Clinical Notes Includes: Clinical Notes from this encounter * Progress note Date Encounter Last Documented by 09/01/2023 Physician Specified Last shoaib woodward on 09/05/2023; 11:20 AM, Lake Castle MD; [facility] Active Problems & Conditions - Joint Pain [...]
[2023-11-11 14:36] VITALS: BP 135/85; PULSE 101; RESP 18; O2SAT 98; BMI 39.1
--- NOTE | 2023-11-11 15:51 | EXP.PAIN.OV ---
HPI Data of Consult Patient: new to practice Consult date: 11/11/23 Requesting Physician: Mona Gilbert APRN Primary Care Provider: Ashley Smith APRN Consult Narrative Reason for consult: Low back pain, bilateral knee pain History of present illness: Ms. Adler is a 43 year old female who presents today as a new patient. She is a referral from [facility] office. Today she rates her pain a 5 out of 10. Patient states her pain is throughout her low back and radiating down into her bilateral knees. Patient states this has been going on for some time unrelated to any specific injury or trauma. Patient does state that she knows she needs to have knee replacements due to having constant pain and that she has been told it is [id number]. Patient does states she has advanced osteoarthritis due to excessive exercise as a child. Patient does state that she has been experiencing spasms and that they are short-lived but they still cause worsening pain symptoms. She states the constant aching, throbbing sensation with sharp shooting pains does interfere with her ability perform activities of daily living such as cooking and cleaning. Patient does state that she did originally go to the medical center orthopedics however they did imaging and stated there was nothing of significant finding. Patient states she then went to Ortho since see where they did imaging and stated she had a herniated disc around the L3-L4 level. Patient states that she is scheduled to follow-up with them in 6 weeks and that they were trying more conservative treatment. Patient does state that she is going to physical therapy after she leaves her appointment here to try traction. Patient has tried [id number] Tylenol and ibuprofen along with heat and ice and muscle relaxers at night with minimal relief. She states she was given a 10-day dose of steroids. Patient states she has in the past had what she believes was SI injections and that she did see a pain clinic in [place] however that where she moved here a couple months ago she is trying to establish care. Patient is interested in any help we may be able to provide. She does state that she is currently managed with gabapentin. Her Jarek has been reviewed and is appropriate. CC: Mona Gilbert APRN [facility] Disclaimer: The information contained in this section may have been updated after the patient was seen, as this information can be updated by other users. Medical History (Updated 11/11/23 @ 15:56 by Mona Gilbert APRN) Herniated disc Normal colonoscopy Arthritis Vertigo Osteoarthritis PTSD (post-traumatic stress disorder) Depression Anxiety Surgical History History of nasal septoplasty Family History Other Cancer Cutaneous lupus erythematosus Heart attack Hypertension Thyroid disorder Social History Smoking Status: Current every day smoker alcohol intake: never current occupational status: other Travel in the last 8 weeks: None Review of Systems Review of Systems Review of systems:: pertinent systems reviewed and negative unless documented below Review of systems (narrative): Review of Systems: General: No recent weight changes, no fever, no sleep disturbances Respiratory: No cough, no shortness of air, no recurring pulmonary infections Cardiovascular/peripheral vascular: No chest pain, no palpitations, no edema, no shortness of breath Gastrointestinal: No new onset incontinence, normal bowel movements reported Genitourinary: No new onset incontinence Musculoskeletal: Low back pain, bilateral leg pain, bilateral knee pain Psychiatric: [Normal mood/affect] Neurological: [Denies weakness in extremities], [denies balance issues] Meds Home Medications and Allergies Home Medications Medication Instructions Recorded Confirmed Type methylphenidate HCl 54 mg 54 mg PO DAILY 08/09/23 11/10/23 History tablet,extended release 24 hr (Concert[facility]) mirtazapine 15 mg tablet 15 mg PO DAILY 08/09/23 11/10/23 History duloxetine 60 mg capsule,delayed 120 mg PO DAILY 09/03/23 11/10/23 History release gabapentin 300 mg capsule 900 mg PO HS 09/03/23 11/10/23 History cyclobenzaprine 7.5 mg tablet 7.5 mg PO TID PRN muscle spasm #20 09/27/23 09/27/23 Rx tabs cetirizine 10 mg tablet 10 mg PO DAILY #30 tabs 10/27/23 11/10/23 Rx New Prescriptions to Start Prescriptions: Allergies Allergy/AdvReac Type Severity Reaction Status Date / Time gluten AdvReac Abdominal Uncoded 11/10/23 13:05 Pain lactose AdvReac Abdominal Uncoded 05/15/24 13:05 Pain Objective Vital signs: Pulse Resp BP Pulse Ox O2 Del Method 101 H 18 135/85 98 Room Air 11/11/23 14:36 11/11/23 14:36 11/11/23 14:36 11/11/23 14:36 11/11/23 14:36 Narrative: Physical Exam: General: Alert and oriented x3, no acute distress, pleasant and cooperative Lungs: Respirations even and unlabored, symmetrical chest expansion Eyes: PERRL Musculoskeletal: Flexion and extension of lumbar [spine] somewhat guarded secondary to pain, [antalgic gait noted] Neurological: Speech clear, no gross sensory deficit Assessment and Plan *Assessment and plan (1) Low back pain: Status: Acute Qualifiers: Chronicity: chronic Back pain laterality: bilateral Sciatica presence: with sciatica Sciatica laterality: bilateral sciatica Qualified Code(s): M54.42 - Lumbago with sciatica, left side; M54.41 - Lumbago with sciatica, right side; G89.29 - Other chronic pain Category: Medical Code(s): M54.50 - Low back pain, unspecified (2) Bilateral knee pain: Status: Acute Qualifiers: Chronicity: chronic Qualified Code(s): M25.561 - Pain in right knee; M25.562 - Pain in left knee; G89.29 - Other chronic pain Category: Medical Code(s): M25.561 - Pain in right knee; M25.562 - Pain in left knee (3) Lumbar radiculopathy: Status: Acute Category: Medical Code(s): M54.16 - Radiculopathy, lumbar region Plan Patient is experiencing significant pain in her low back. I did discuss with patient that she may benefit from lumbar epidural steroid injection however the patient states she is not interested in this option. I will order the patient a compounded cream. Patient will return to clinic in 1 month for reevaluation of symptoms and plan of care. Patient has been instructed to contact the clinic with any concerns before the next appointment. Dr. Pérez has reviewed this note and agrees with this plan of care. This note was dictated using voice recognition software and make contain errors or omissions.
== END 2023-11-11 23:59 | disposition home or self-care (01) ==
LOC: SC.PAIN 13:48
PROVIDERS: PCP Nurse Practitioner Family; Visit Provider Nurse Practitioner Family
DX: M54.42 Lumbago with sciatica, left side (principal); M54.41 Lumbago with sciatica, right side; G89.29 Other chronic pain; M25.561 Pain in right knee; M25.562 Pain in left knee; M54.16 Radiculopathy, lumbar region
CPT/HCPCS: 99202; G0463

== ENCOUNTER 2023-11-25 14:14 | Outpatient (CLI) | payer BC, SELFPAY ==
[2023-11-25 16:04] LABS: Erythrocyte Sedimentation Rate 21 mm/hr (0-20)
[2023-11-25 18:11] LABS: 25-OH Vitamin D, Total 37.4 ng/mL (30-100)
[2023-11-25 18:13] LABS: T4 (Thyroxine) 7.8 ug/dl (5.53-11.0)
[2023-11-25 18:16] LABS: Free T4 (Free Thyroxine) 1.02 ng/dl (0.78-2.19)
[2023-11-25 18:27] LABS: Thyroid Stimulating Hormone 1.37 uIU/mL (0.465-4.68)
[2023-11-25 18:46] LABS: Vitamin B12 923 pg/mL (239-931)
[2023-11-25 20:18] LABS: Ferritin 14.5 ng/ml (6.24-137)
[2023-11-27 08:17] LABS: Thyroid Peroxidase Antibodies 21 IU/mL (0-34); Triiodothyronine (T3) Free 3.4 pg/mL (2.0-4.4)
[2023-11-27 09:42] LABS: RA Latex Turbid. <10.0 IU/mL (<14.0)
[2023-11-29 14:59] LABS: Antinuclear Antibodies, IFA Negative (.)
[2023-11-29 17:09] LABS: Thyroglobulin Level 6.9 IU/mL (0.0-0.9)
== END 2023-11-25 23:59 | disposition home or self-care (01) ==
LOC: LAB 14:14
PROVIDERS: PCP Nurse Practitioner Family; Visit Provider Nurse Practitioner Family
DX: E01.0 Iodine-deficiency related diffuse (endemic) goiter (principal); E66.01 Morbid (severe) obesity due to excess calories; Z68.43 Body mass index [BMI] 50.0-59.9, adult; M25.50 Pain in unspecified joint; R70.0 Elevated erythrocyte sedimentation rate
CPT/HCPCS: 36415; 82306; 82607; 82728; 84436; 84439; 84443; 84481; 84550; 85651; 86038; 86376; 86431; 86800

== ENCOUNTER 2023-11-29 14:43 | Outpatient (CLI) | payer BC, SELFPAY ==
--- NOTE | 2023-11-29 14:43 | US_ITS ---
FINAL REPORT TECHNIQUE: Ultrasound images of the thyroid were obtained. CLINICAL HISTORY: thyroid enlargement FINDINGS: The right lobe of the thyroid measures 4.4 x 1.9 x 1.3 cm. It is normal in echogenicity. The left lobe of the thyroid measures 3.6 x 1.8 x 1.3 cm. It is normal in echogenicity. There is a calcified nodule in the right lobe measuring 4 mm, TR 2. There is a 4 mm, solid, hypoechoic nodule in the left lobe with microcalcifications, TR 5 IMPRESSION: 4 mm TR 5 nodule in the left lobe. Recommend 6-12-month follow-up. Reviewed, Interpreted and Dictated by Warren Maradiaga III, MD Transcribed by Flower Cantor Authenticated and . [facility]
== END 2023-11-29 23:59 | disposition home or self-care (01) ==
LOC: RAD 14:43
PROVIDERS: PCP Nurse Practitioner Family; Visit Provider Nurse Practitioner Family
DX: E01.0 Iodine-deficiency related diffuse (endemic) goiter (principal); Z83.49 Family history of other endocrine, nutritional and metabolic diseases
CPT/HCPCS: 76536

== ENCOUNTER 2023-12-13 14:53 | Outpatient (CLI) | payer BC, SELFPAY ==
[2023-12-16 13:11] LABS: EBV Ab VCA, IgM <36.0 U/mL (0.0-35.9)
== END 2023-12-13 23:59 | disposition home or self-care (01) ==
LOC: LAB.DROPOF 14:53
PROVIDERS: PCP Nurse Practitioner Family; Visit Provider Nurse Practitioner Family
DX: B27.90 Infectious mononucleosis, unspecified without complication (principal); R53.83 Other fatigue
CPT/HCPCS: 82533; 86664; 86665

== ENCOUNTER 2024-01-04 14:58 | Outpatient (CLI) | payer BC, SELFPAY ==
--- NOTE | 2024-01-04 14:59 | MR_ITS ---
FINAL REPORT CLINICAL HISTORY: Seizure, Head concussion, Vertigo FINDINGS: Multiplanar MR imaging of the brain was performed without and with contrast. Scattered foci of increased T2 signal are seen in the cerebral white matter that have a nonspecific appearance but likely represent mild chronic ischemic/gliotic changes. There is no evidence of intracranial hemorrhage or mass. No abnormal ventricular dilatation is identified. There is no evidence of shift of the midline structures. No abnormal extra-axial fluid collection is seen. No area of abnormal restricted diffusion is identified. The posterior fossa and brainstem have an unremarkable appearance. No abnormal contrast enhancement is seen. Normal major vessel vascular flow voids are seen. IMPRESSION: Mild chronic ischemic/gliotic changes. No acute intracranial abnormality. Reviewed, Interpreted and Dictated by Warren Maradiaga III, MD Transcribed by Yesy Roberts Authenticated and [facility] [place]
== END 2024-01-04 23:59 | disposition home or self-care (01) ==
LOC: RAD 14:59
PROVIDERS: PCP Nurse Practitioner Family; Visit Provider Specialist
DX: R42 Dizziness and giddiness (principal); R56.9 Unspecified convulsions; S06.0XAA Concussion with loss of consciousness status unknown, initial encounter
CPT/HCPCS: 70553

== ENCOUNTER 2024-01-06 09:56 | Outpatient (CLI) | payer BC, SELFPAY ==
[2024-01-06 11:39] LABS: Thyroid Stimulating Hormone 1.16 uIU/mL (0.465-4.68)
[2024-01-07 15:15] LABS: Adrenocorticotropic Hormone 30.7 pg/mL (7.2-63.3)
== END 2024-01-06 23:59 | disposition home or self-care (01) ==
LOC: LAB 09:59
PROVIDERS: PCP Nurse Practitioner Family; Visit Provider Nurse Practitioner Family
DX: R79.89 Other specified abnormal findings of blood chemistry (principal)
CPT/HCPCS: 36415; 82024; 82533; 84443

== ENCOUNTER 2024-01-13 14:00 | Outpatient (RCR) | payer BC, SELFPAY | END 2024-01-13 14:05 | disposition home or self-care (01) | LOC: PT 14:00 | PROVIDERS: Visit Provider Neuromusculoskeletal Medicine, Sports Medicine | DX: M51.26 Other intervertebral disc displacement, lumbar region (principal) | CPT/HCPCS: 20561; 97010; 97012; 97014; 97110; 97163; 97164; 97535; G0283 ==

== ENCOUNTER 2024-01-25 10:37 | Outpatient (CLI) | payer BC, SELFPAY ==
--- NOTE | 2024-01-25 10:45 | US_ITS ---
FINAL REPORT CLINICAL HISTORY: Dyspepsia, RUQ abd pain FINDINGS: RIGHT UPPER QUADRANT ULTRASOUND Sonographic images of the right upper quadrant were obtained. The pancreas is partially obscured.The liver has an unremarkable appearance. There are multiple gallstones in the gallbladder. No gallbladder wall thickening is identified. The common duct measures 4 mm. Limited images of the right kidney are normal. IMPRESSION: Cholelithiasis. Reviewed, Interpreted and Dictated by Krish Byers MD Transcribed by Yesy Roberts Authenticated and [facility]
[2024-01-26 16:05] LABS: H. pylori Breath Test Negative (Negative)
[2024-02-16 11:47] LABS: Salivary Cortisol 0.046 ug/dL
== END 2024-01-25 23:59 | disposition home or self-care (01) ==
LOC: RAD 10:37
PROVIDERS: PCP Nurse Practitioner Family; Visit Provider Nurse Practitioner Family
DX: R79.89 Other specified abnormal findings of blood chemistry (principal); R10.13 Epigastric pain; R10.10 Upper abdominal pain, unspecified
CPT/HCPCS: 76705; 82533; 83013

== ENCOUNTER 2024-03-20 16:19 | Outpatient (CLI) | payer BC, SELFPAY ==
[2024-03-20 16:54] LABS: Microscopic, Urine URINE MICROSCOPIC (MICROSCOPIC)
[2024-03-20 17:05] LABS: Basophils # 0.1 K/mm3 (0-0.2); Eosinophils # 0.1 K/mm3 (0.0-0.4); Eosinophils % 2.1 % (0.1-12.0); Hematocrit 44.2 % (37.0-47.0); Hemoglobin 14.1 g/dL (12.2-16.2); Lymphocytes # 1.6 K/mm3 (0.7-4.5); Lymphocytes % 23.2 % (10-50); Mean Corpuscular Hemoglobin 28.8 pg (27.0-31.2); Mean Platelet Volume 8.5 fl (7.4-10.4); Monocytes # 0.4 K/mm3 (0.1-1.0); Monocytes % 5.2 % (1.7-9.3); Neutrophils # 4.7 K/mm3 (1.8-7.8); Neutrophils % 68.5 % (37.0-80.0); Platelet Count 255 K/mm3 (142-424); Red Blood Count 4.91 M/mm3 (4.20-5.40); Red Cell Distribution Width 14.8 % (11.5-17.5); White Blood Count 6.9 K/mm3 (4.8-10.8)
[2024-03-20 18:13] LABS: Bilirubin,Total 0.4 mg/dl (0.2-1.3); Blood Urea Nitrogen 9 mg/dl (7-17); Chloride 109 mmol/L (98-107); Glucose 126 mg/dl (74-100); Potassium 3.7 mmoL/L (3.5-5.1); Total Protein,Serum 6.4 g/dl (6.3-8.2)
[2024-03-20 18:30] LABS: 25-OH Vitamin D, Total 38.3 ng/mL (30-100)
[2024-03-20 19:40] LABS: Alanine Aminotransferase 148 U/L (12-78); Albumin Level 4.1 g/dl (3.5-5.0); Albumin/Globulin Ratio 1.8 (1.1-1.8); Alkaline Phosphatase 124 U/L (38-126); Anion Gap 9.7 mEq/L (5-15); Aspartate Amino Transferase 68 U/L (14-36); Calcium 9.7 mg/dl (8.4-10.2); Carbon Dioxide 23 mmol/L (22.0-30.0); Estimated Glomerular Filt Rate 110 ml/min (>60); GFR (African American) 133 ML/MIN (>60); Globulin 2.3 g/dL (1.3-3.2); Sodium 138 mmol/L (136-145); Uric Acid 4.4 mg/dl (2.5-6.2)
[2024-03-20 20:16] LABS: Ferritin 17.6 ng/ml (6.24-137)
[2024-03-20 20:54] LABS: Vitamin B12 > 1000 pg/mL (239-931)
[2024-03-20 21:08] LABS: Appearance,Urine CLEAR (Clear); Bilirubin,Urine Negative (Negative); Blood, Urine Negative (Negative); Color,Urine YELLOW (Yellow); Glucose,Urine (UA) Negative (Negative); Ketones,Urine TRACE (Negative); Leukocyte Esterase,Urine Negative (Negative); Nitrate,Urine Negative (Negative); Protein,Urine Negative (Negative); Specific Gravity, Urine 1.025 (1.005-1.030); Urobilinogen,Urine 0.2 EU/dl (0.2)
[2024-03-20 21:27] LABS: Creatinine,Urine Random 215 mg/dL (Not Estab.)
[2024-03-20 21:28] LABS: Bacteria,Urine 1+ /lpf; Uric Acid Crystals,Urine 1+ /lpf
== END 2024-03-20 23:59 | disposition home or self-care (01) ==
LOC: LAB.DROPOF 03-21 09:49
PROVIDERS: PCP Nurse Practitioner Family; Visit Provider Nurse Practitioner Family
DX: D64.9 Anemia, unspecified (principal); E01.0 Iodine-deficiency related diffuse (endemic) goiter; M25.50 Pain in unspecified joint; D50.9 Iron deficiency anemia, unspecified; R53.83 Other fatigue; N39.0 Urinary tract infection, site not specified
CPT/HCPCS: 80050; 80053; 81001; 82043; 82306; 82570; 82607; 82728; 84443; 84550; 85025; 87086

== ENCOUNTER 2024-03-23 12:22 | Outpatient (CLI) | payer BC, SELFPAY ==
--- NOTE | 2024-03-23 12:27 | XR_ITS ---
FINAL REPORT CLINICAL HISTORY: left foot pain FINDINGS: LEFT FOOT Three views of the left foot demonstrate no acute fracture or dislocation. There is mild hallux valgus deformity. An old avulsion fracture is seen of the dorsal navicular bone. The visualized joint spaces are normally aligned. The soft tissues are unremarkable. IMPRESSION: No acute bony abnormality. Reviewed, Interpreted and Dictated by Yolanda Howell MD Transcribed by Flower Cantor Authenticated and [facility]
--- NOTE | 2024-03-23 12:27 | XR_ITS ---
FINAL REPORT CLINICAL HISTORY: right foot pain FINDINGS: RIGHT FOOT 3 views of the right foot were obtained. There is mild hallux valgus deformity. There is no acute fracture or dislocation. Visualized joint spaces are normally aligned. Soft tissues are unremarkable. IMPRESSION: No acute bony abnormality. Reviewed, Interpreted and Dictated by Yolanda Howell MD Transcribed by Flower Cantor Authenticated and [facility]
== END 2024-03-23 23:59 | disposition home or self-care (01) ==
LOC: RAD 12:23
PROVIDERS: PCP Nurse Practitioner Family; Visit Provider Nurse Practitioner
DX: M79.671 Pain in right foot (principal); M79.672 Pain in left foot
CPT/HCPCS: 73630

== ENCOUNTER 2024-04-05 13:42 | Outpatient (CLI) | payer BC, SELFPAY ==
[2024-04-05 14:47] LABS: Alanine Aminotransferase 24 U/L (12-78); Albumin Level 4.3 g/dl (3.5-5.0); Alkaline Phosphatase 90 U/L (38-126); Aspartate Amino Transferase 24 U/L (14-36); Bilirubin,Direct 0.3 mg/dl (0.0-0.4); Bilirubin,Indirect 0.3 mg/dL (0.0-0.9); Bilirubin,Total 0.6 mg/dl (0.2-1.3); Bilirubin,Unconjugated 0.3 mg/dL (0.0-1.1); Total Protein,Serum 6.7 g/dl (6.3-8.2)
[2024-04-05 16:24] LABS: Urine Pregnancy, HCG Qual. Negative (Negative)
== END 2024-04-05 23:59 | disposition home or self-care (01) ==
LOC: LAB 13:42
PROVIDERS: PCP Nurse Practitioner Family; Visit Provider Surgery
DX: R10.10 Upper abdominal pain, unspecified (principal)
CPT/HCPCS: 36415; 80076; 81025

== ENCOUNTER 2024-04-06 14:52 | Outpatient (CLI) | payer BC, SELFPAY ==
--- NOTE | 2024-04-06 14:55 | US_ITS ---
FINAL REPORT CLINICAL HISTORY: urinary frequency FINDINGS: RENAL ULTRASOUND Ultrasound images of the kidneys were obtained. The right kidney measures 10.6 cm in length. It is normal echogenicity. There is no hydronephrosis. The left kidney measures 11.5 cm in length. It is normal echogenicity. There is no hydronephrosis. The spleen is somewhat enlarged at 13.9 cm. IMPRESSION: Normal renal ultrasound. Mild splenomegaly. Reviewed, Interpreted and Dictated by Warren Maradiaga III, MD Transcribed by Edith Goldsmith Authenticated and . [facility]
--- NOTE | 2024-04-06 14:55 | US_ITS ---
FINAL REPORT CLINICAL HISTORY: Increased urinary frequency FINDINGS: ULTRASOUND URINARY BLADDER Limited sonographic images of the urinary bladder were obtained. Filled bladder volume is 39 mL. No postvoid residual was obtained. Ureteral jets were noted. IMPRESSION: No postvoid residual obtained. Otherwise, unremarkable exam. Reviewed, Interpreted and Dictated by Warren Maradiaga III, MD Transcribed by Edith Goldsmith Authenticated and [facility]
== END 2024-04-06 23:59 | disposition home or self-care (01) ==
LOC: RAD 14:52
PROVIDERS: PCP Nurse Practitioner Family; Visit Provider Nurse Practitioner Family
DX: R35.0 Frequency of micturition (principal)
CPT/HCPCS: 76770; 76857

== ENCOUNTER 2024-04-25 10:12 | Outpatient (CLI) | payer BC, SELFPAY ==
[2024-04-25 12:10] LABS: Blood Urea Nitrogen 10 mg/dl (7-17); Estimated Glomerular Filt Rate 79 ml/min (>60); GFR (African American) 95 ML/MIN (>60)
== END 2024-04-25 23:59 | disposition home or self-care (01) ==
LOC: LAB 10:14
PROVIDERS: PCP Nurse Practitioner Family; Visit Provider Nurse Practitioner Family
DX: R10.10 Upper abdominal pain, unspecified (principal)
CPT/HCPCS: 36415; 82565; 84520

== ENCOUNTER 2024-05-01 13:44 | Outpatient (CLI) | payer BC, SELFPAY | END 2024-05-01 23:59 | disposition home or self-care (01) | LOC: RT 13:45 | PROVIDERS: PCP Nurse Practitioner Family; Visit Provider Physician Assistant | DX: Z01.818 Encounter for other preprocedural examination (principal); R07.89 Other chest pain; R94.31 Abnormal electrocardiogram [ECG] [EKG]; R53.83 Other fatigue | CPT/HCPCS: 93270 ==

== ENCOUNTER 2024-05-03 07:24 | Outpatient (CLI) | payer BC, SELFPAY ==
--- NOTE | 2024-05-03 | CA_ITS ---
APPROVED REPORT Exam: Pharmacologic Technologist: Lexi Nelson Ht: 5 ft 9 in Wt: 274 lbs BSA: 2.36 m2 HR: 75 bpm BP: 125/79 mmHg Stress Test Details Test: LEXISCAN HR Resting HR: 75 bpm Max Heart Rate (APMHR): 178 bpm Target HR (85% APMHR): 151 bpm Recovery HR: 85 bpm BP Resting BP: 125.0/79.0 mmHg Recovery BP: 149.0/77.0 mmHg ECG Resting ECG: Normal sinus rhythm, PVCs Stress ECG Conclusion Symptoms: Brief shortness of air, mild dizziness. No chest pain. Arrhythmias/Ectopy: Occassional PVC ST-T Changes: No significant ST changes Conclusion: Unremarkable Lexiscan stress. Myoview images are reported separately. Electronically signed by : Jackie Desir MD 05/03/2024 12:13:07
--- NOTE | 2024-05-03 07:27 | NM_ITS ---
APPROVED REPORT Exam: Nuclear Stress Test Indication: c.p., abn ekg Patient Location: Outpatient Stress Tech: Lexi Nelson NM Tech:Kiera Hankins YOSELYNLizzeth RT (R)(N)(M) Ht: 5 ft 9 in Wt: 270 lbs Bra Size: dd HR: 76 bpm BP: 125/79 mmHg BSA: 2.35 m2 TID: 1.24 BMI: 39.8 History: c.p., abn ekg Procedure: Patient received 0.4 mg of intravenous Lexiscan, resting heart rate 76 bpm, resting blood pressure 125/79 mmHg, with Lexiscan maximum heart rate achieved was 114 bpm which is % of the maximum predicted heart rate and blood pressure was 130/84 mmHg. With Lexiscan, patient denied any complaint of chest pain. Cardiac Stress and Resting SPECT Images: Cardiac Stress and Resting SPECT images were obtained using technetium 99m Myoview 25.8 mCi stress and 8.39 mCi at rest. Resting and stress imaging in supine and prone positions demonstrate no evidence of focal fixed or reversible perfusion defects. There is increase in transient ischemic dilatation ratio (TID 1.24), suggestive of possible multivessel disease or balanced ischemia. Gated imaging demonstrates normal global and regional LV systolic function. LVEF is calculated at 57%. Conclusion: No evidence of focal fixed or reversible perfusion defects. There is increase in transient ischemic dilatation ratio (TID 1.24), suggestive of possible multivessel disease or balanced ischemia. Gated imaging demonstrates normal global and regional LV systolic function. LVEF is calculated at 57%. In the setting of normal LV systolic function, young age, and presence of TID, further evaluation noninvasively with CCTA (if clinically feasible and indicated) is suggested prior to proceeding with invasive coronary angiography. Electronically signed by : Jackie Desir MD 05/03/2024 12:15:40
[2024-05-03] MEDS: SODIUM CHLORIDE 0.9% 10ML SYR (RAD ONLY) 10 ML IV ×2 (07:35→08:40)
[2024-05-03] MEDS: REGADENOSON 0.4MG/5ML SYRINGE 0.4 MG IV (08:40)
[2024-05-03] MEDS: ISOTOPE MYOVIEW (PER STUDY) 1 DOSE IV (10:36)
== END 2024-05-03 23:59 | disposition home or self-care (01) ==
LOC: RAD 07:25
PROVIDERS: PCP Nurse Practitioner Family; Visit Provider Physician Assistant
DX: R07.89 Other chest pain (principal); R94.31 Abnormal electrocardiogram [ECG] [EKG]; R53.83 Other fatigue
CPT/HCPCS: 78452; 93017; 93018; A9502; J2785

== ENCOUNTER 2024-05-04 09:53 | Outpatient (CLI) | payer BC, SELFPAY ==
--- NOTE | 2024-05-04 09:53 | CT_ITS ---
FINAL REPORT CLINICAL HISTORY: upper abd pain, vomiting after eating COMPARISON: None FINDINGS: CT OF THE ABDOMEN AND PELVIS WITH CONTRAST Axial CT images of the abdomen and pelvis were obtained after the administration of IV contrast. Coronal reformatted images were also obtained and reviewed.This study was performed with techniques to keep radiation doses as low as reasonably achievable (ALARA). Individualized dose reduction techniques using automated exposure control or adjustment of mA and/or kV according to the patient''s size were employed. Abdomen: The lung bases are clear. The heart is normal in size. The liver has an unremarkable appearance, without evidence of mass or biliary ductal dilatation. The spleen is unremarkable. No adrenal mass is present. The pancreas has an unremarkable appearance. The kidneys are normal, without evidence of mass or hydronephrosis. The aorta is normal in caliber. There is no free fluid or adenopathy. No mass or abnormal fluid collection is seen. Pelvis: The appendix is normal. The urinary bladder is unremarkable. No inflammatory process is seen. There is a 29 mm right ovarian cyst. There is no evidence of bowel obstruction. IMPRESSION: No evidence of acute intra-abdominal process. 29 mm right ovarian cyst. Reviewed, Interpreted and Dictated by Warren Maradiaga III, MD Transcribed by Aracelis Cody Authenticated and [facility]
[2024-05-04] MEDS: SODIUM CHLORIDE 0.9% 10ML SYR (RAD ONLY) 10 ML IV (10:49)
[2024-05-04] MEDS: IOPAMIDOL-370 (76%);100ML BOTTLE 75 ML IV (10:49)
== END 2024-05-04 23:59 | disposition home or self-care (01) ==
LOC: RAD 09:53
PROVIDERS: PCP Nurse Practitioner Family; Visit Provider Nurse Practitioner Family
DX: K30 Functional dyspepsia (principal); R11.10 Vomiting, unspecified; K59.00 Constipation, unspecified; K80.20 Calculus of gallbladder without cholecystitis without obstruction
CPT/HCPCS: 74177; Q9967

== ENCOUNTER 2024-05-08 13:25 | Outpatient (CLI) | payer BC, SELFPAY ==
--- NOTE | 2024-05-08 13:28 | CA_ITS ---
APPROVED REPORT EXAM: Comprehensive 2D, Doppler, and color-flow Echocardiogram Grocery Clerk Selling: Sienna Alegre CRT Ht: 5 ft 9 in Wt: 274lbs BSA: 2.36 BP: 140/87 mmHg Indications: Abnormal ECG, Fatigue, Pre-Op assessment 2D Dimensions LA Volume 26.70 mL LA Volume Index 11.00 mL/m2 (M/F) 16-34 M-Mode Dimensions RVDd 2.86 cm (0.9-2.6) LA Diam 3.65 cm (1.9-4.0) LVDd 4.69 cm (3.5-5.7) LVDs 3.68 cm (3.5-5.7) IVSd 1.38 cm (0.6-1.1) PWd 0.95 cm (0.6-1.1) EF (Teich) 43.70% FS 21.50% EDV (Teich) 101.90 mL TAPSE 2.56 (<1.7) ESV (Teich) 57.40 mL LV Diastology E Decel Time 260 (160-240 msec) E/A Ratio 0.90 MED A' 9.50 cm/s LAT A' 11.80 cm/s Aortic Valve AO Peak GR. 8.20 mmHg Mitral Valve MV A Velocity 60.0 (40-130 cm/s) E/A Ratio 0.90 Tricuspid Valve TR P. Velocity 277.00 cm/s Left Ventricle The left ventricle is normal size. The left ventricular systolic function is normal. The left ventricular ejection fraction is within the normal range. There is normal left ventricular wall thickness. There is normal LV segmental wall motion. The left ventricular diastolic function is normal. LVEF is 55%. Right Ventricle The right ventricle is normal size. The right ventricular systolic function is normal. Atria The left atrium size is normal. The right atrium size is normal. There is no Doppler evidence of interatrial shunt. Aortic Valve The aortic valve opens well. There is no aortic valvular stenosis. No aortic regurgitation. Mitral Valve The mitral valve is normal in structure. No evidence of mitral valve stenosis. Trace mitral regurgitation. Tricuspid Valve The tricuspid valve leaflets are thin and pliable. Trace tricuspid regurgitation. There is insufficient TR jet to estimate RVSP. Pulmonic Valve The pulmonary valve is normal in structure. Trace pulmonic regurgitation. Great Vessels The aortic root is normal in size. The ascending aorta is not well-visualized. IVC is normal in size and collapses >50% with inspiration. Pericardium There is no pericardial effusion. Other Information Study Quality: Fair Conclusion Normal biventricular systolic function. No significant valvular stenosis or regurgitation. Electronically signed by : Jackie Desir MD 05/08/2024 23:42:00
[2024-05-08 15:52] LABS: Free Thyroxine Index 2.5 ug/dL (5.93-13.13); Triiodothryronine (T3) Uptake 28 % (23.5-40.5)
[2024-05-08 16:06] LABS: Thyroid Stimulating Hormone 1.86 uIU/mL (0.465-4.68)
[2024-05-09 12:29] LABS: Thyroid Peroxidase Antibodies <9 IU/mL (0-34)
[2024-05-11 08:22] LABS: Thyroid Stimulating Immunoglob <0.10 IU/L (0.00-0.55)
== END 2024-05-08 23:59 | disposition home or self-care (01) ==
LOC: RT 13:26
PROVIDERS: Student in an Organized Health Care Education/Training Program; PCP Nurse Practitioner Family; Visit Provider Physician Assistant
DX: Z01.818 Encounter for other preprocedural examination (principal); R94.31 Abnormal electrocardiogram [ECG] [EKG]; R07.89 Other chest pain; R53.83 Other fatigue; R79.89 Other specified abnormal findings of blood chemistry
CPT/HCPCS: 36415; 84436; 84443; 84445; 84479; 86376; 93306

== ENCOUNTER 2024-05-23 14:57 | Outpatient (CLI) | payer BC, SELFPAY ==
[2024-05-23 15:58] LABS: Basophils # 0.1 K/mm3 (0-0.2); Basophils % 0.7 % (0.1-2.0); Eosinophils # 0.1 K/mm3 (0.0-0.4); Eosinophils % 0.9 % (0.1-12.0); Hemoglobin 14.6 g/dL (12.2-16.2); Lymphocytes # 1.6 K/mm3 (0.7-4.5); Lymphocytes % 19.8 % (10-50); Mean Corpuscular Hemoglobin 28.7 pg (27.0-31.2); Mean Corpuscular Volume 84.6 fl (81-99); Mean Platelet Volume 7.7 fl (7.4-10.4); Monocytes # 0.4 K/mm3 (0.1-1.0); Monocytes % 4.6 % (1.7-9.3); Neutrophils # 6.1 K/mm3 (1.8-7.8); Neutrophils % 74.1 % (37.0-80.0); Platelet Count 251 K/mm3 (142-424); Red Blood Count 5.08 M/mm3 (4.20-5.40); Red Cell Distribution Width 14.4 % (11.5-17.5); White Blood Count 8.2 K/mm3 (4.8-10.8)
[2024-05-23 17:35] LABS: Iron 61 ug/dL (37-170)
[2024-05-23 17:44] LABS: Total Iron Binding Capacity 350 ug/dL (265-497)
[2024-05-23 18:10] LABS: Ferritin 17.7 ng/ml (6.24-137)
[2024-05-26 06:10] LABS: Zinc 83 ug/dL (44-115)
== END 2024-05-23 23:59 | disposition home or self-care (01) ==
LOC: LAB 14:59
PROVIDERS: PCP Nurse Practitioner Family; Visit Provider Nurse Practitioner Family
DX: L30.9 Dermatitis, unspecified (principal); E61.1 Iron deficiency
CPT/HCPCS: 36415; 82728; 83540; 83550; 84630; 85025

== ENCOUNTER 2024-06-06 10:42 | Outpatient (CLI) | payer BC, SELFPAY | END 2024-06-06 23:59 | disposition home or self-care (01) | LOC: RAD 10:43 → LAB 13:57 | PROVIDERS: PCP Nurse Practitioner Family; Visit Provider Nurse Practitioner Family | DX: Z02.9 Encounter for administrative examinations, unspecified (principal) ==

== ENCOUNTER 2024-06-12 11:50 | Outpatient (CLI) | payer BC, SELFPAY ==
--- NOTE | 2024-06-12 11:56 | CT_ITS ---
APPROVED REPORT Flight Agent: CLINICAL INDICATION Chest Pain TECHNIQUE Image Acquisition: A 128 slice MDCT scanner ([employer] View) was used for data acquisition. A noncontrast coronary calcium scan was performed. A CT attenuation threshold of 130 Hounsfield units (HU) was used for the detection of calcium in contiguous voxels of 1 sq mm in area to be counted as individual lesions. Bolus tracking in the ascending aorta with a threshold of 180 HU was performed. Immediately afterwards, ECG synchronized cardiac CT was then performed from the cardiac base to apex using retrospective gating with ECG tube current modulation. A total of 85 mL of Isovue 370 mg/mL contrast medium was administered at 5 mL/sec followed by a saline flush using a biphasic injection protocol. A tube voltage of 120 KVp was used. The patient received the following medications prior to the cardiac CT. 125 mg of oral metoprolol 15 mg of oral ivabradine 0.8 mg of sublingual nitroglycerin The average heart rate at the time of acquisition was 61 bpm and regular. Image Reconstruction Transaxial images were reconstructed at 0.67 mm slide thickness. Data was reviewed interactively on an advanced workstation capable of 2 and 3-dimensional displays in all conventional reconstruction formats, including multiplanar reformations, maximum intensity projections, curved multiplanar reformations, and volume rendered reconstructions. When applicable, selected routine images describing the relevant coronary anatomy and pathology were saved and sent to PACS. Complications None Technical Quality Overall image quality was good. Coronary artery opacification was adequate. Total DLP (Dose-Length Product) is 2173.3 mGy-cm. The reported value represents the total of one or more individual components during the CT acquisition of this date and at this time, and as such, the same value may appear in more than one CT report depending on the interpreting/reporting physicians. COMPARISON None FINDINGS CT Coronary Calcium Scoring LMA (Left Main Artery) = 0 LAD (Left Anterior Descending) = 0 LCX (Left Coronary Circumflex) = 0 RCA (Right Coronary Artery) = 0 Total Calcium Score = 0 using the AJ-130 method. The interpretation of the calcium heart score is based on the following continuum*: 0 = no calcified plaque detected (risk of coronary artery disease is very low ??? less than 5%) 1-10 = calcium detected in extremely minimal levels (risk of coronary diseases is still low ??? less than 10%) 11-100 = mild levels of plaque detected with certainty (mild or minimal narrowing of heart arteries is likely) 101-400 = definite,at least moderate levels of plaque detected (relatively high risk of a heart attack within 3-5 years) >401-999 = extensive levels of plaque detected (high risk of heart attack, high levels of vascular disease are present, high likelihood of at least one significant coronary narrowing) *The calcium heart score quantifies the burden of coronary calcification/plaque in the coronary arteries. The calcium heart score is not able to evaluate the presence or burden of non-calcified (i.e. soft) plaque. There is no identifiable calcification in the aortic valve, mitral annulus or mitral valve, pericardium, or myocardium. Coronary CT Angiography The coronary arterial system is left dominant. Quantitative Stenosis Grading: Left Main (LM): The left main originates normally from the left sinus of Valsalva. The LM bifurcates into the left anterior descending artery and left circumflex artery. The LM is patent with no evidence of atherosclerosis. Left Anterior Descending (LAD) and Diagonal Branches: The LAD gives off 3 diagonal branch(es). The LAD and its branches are patent with no evidence of atherosclerosis. There is no evidence of LAD-myocardial bridge. Left Circumflex (LCX) and Obtuse Marginals (OM): The LCX gives off 2 Obtuse Marginal (OM) branch(es). The LCX and its branches are patent with no evidence of atherosclerosis. Right Coronary Artery (RCA): The RCA originates normally from the right sinus of Valsalva. The RCA and its branches are patent with no evidence of atherosclerosis. Non-Coronary Cardiac Findings: Analysis of the left ventricular (LV) structure and function was performed after 3-D reconstruction of the LV from axial images, with user-corrected automatic contouring for assessment of LV volumes and user-defined reconstruction from oblique planes for measurement of 3-D cardiac structure and function. -The left ventricle systolic function is normal. -There is no left atrial appendage filling defect. Two right pulmonary veins and two left pulmonary veins drain normally into the left atrium. -No pericardial thickening or calcification. -Central and branch pulmonary arteries in the [id number] are unremarkable. -Thoracic aorta within the visualized thoracic aortic-branches in the [id number] is unremarkable. Extracardiac Structures No significant extra-cardiac findings. Note, however, that this study is focused on the cardiac findings. IMPRESSION -Absence of coronary calcification with an Agatston score = 0 using the AJ-130 method. -No evidence of significant flow-limiting atherosclerosis of the coronary arteries. -No evidence of coronary anomalies or myocardial bridges. -CAD-RADS 0. Management recommendations per ACC/AHA guidelines*, as clinically appropriate. *Recommendations: CAD RADS 0: Reassurance. Consider non-atherosclerotic causes of chest pain. CAD RADS 1: Consider non-atherosclerotic causes of chest pain. Consider preventive therapy and risk factor modification. CAD RADS 2: Consider non-atherosclerotic causes of chest pain. Consider preventive therapy and risk factor modification, particularly for patients with nonobstructive plaque in multiple segments. CAD RADS 3: Consider further functional testing. Consider symptom-guided anti-ischemic and preventive pharmacotherapy as well as risk factor modification per published guideline statements. CAD RADS 4A: Consider further functional testing or invasive coronary angiography with revascularization per published guideline statements. Consider symptom-guided anti-ischemic and preventive pharmacotherapy as well as risk factor modification per published guideline statements. CAD RADS 4B: Invasive coronary angiography recommended with revascularization per published guideline statements. Consider symptom-guided anti-ischemic and preventive pharmacotherapy as well as risk factor modification per published guideline statements. CAD RADS 5: Consider invasive angiography and/or viability assessment with revascularization per published guideline statements. Consider symptom-guided anti-ischemic and preventive pharmacotherapy as well as risk factor modification per published guideline statements. CRITICAL RESULT None COMMUNICATION Per this written report The coronary and cardiac findings of this CCTA were reviewed, reported, and signed by Sean Desir MD (Elder Counselor) Conclusion Electronically signed by : Jackie Desir MD 06/14/2024 00:51:32
[2024-06-12 12:10] VITALS: BMI 40.6
[2024-06-12 12:17] VITALS: BP 139/73; PULSE 101; RESP 16; O2SAT 97
[2024-06-12] MEDS: IVABRADINE HCL 7.5MG TABLET PO (12:25)
[2024-06-12] MEDS: METOPROLOL TARTRATE 50MG TABLET PO ×2 (12:25→13:17)
[2024-06-12 12:46] LABS: Urine Pregnancy, HCG Qual. Negative (Negative)
[2024-06-12 12:53] LABS: Chloride 109 mmol/L (98-107); Sodium 134 mmol/L (136-145)
[2024-06-12 12:56] LABS: Blood Urea Nitrogen 10 mg/dl (7-17); Carbon Dioxide 22 mmol/L (22.0-30.0); Creatinine Clearance Estimated 206 mL/min (50-200); Estimated Glomerular Filt Rate 92 ml/min (>60); GFR (African American) 111 ML/MIN (>60)
[2024-06-12 12:57] LABS: Calcium 9.3 mg/dl (8.4-10.2); Glucose 100 mg/dl (74-100)
[2024-06-12 14:00] VITALS: BP 141/88; PULSE 70; RESP 15; O2SAT 95
[2024-06-12] MEDS: NITROGLYCERIN 0.4MG SL TABLET SL (14:00)
[2024-06-12 14:03] VITALS: BP 135/93; PULSE 63; RESP 16; O2SAT 96
[2024-06-12 14:05] VITALS: BP 132/72; PULSE 64; O2SAT 96
[2024-06-12 14:10] VITALS: BP 104/61; PULSE 62; RESP 16; O2SAT 96
[2024-06-12] MEDS: 0.9 % SODIUM CHLORIDE 50 ML VIAL IV (14:19)
[2024-06-12] MEDS: SODIUM CHLORIDE 0.9% 10ML SYR (RAD ONLY) 10 ML IV (14:19)
[2024-06-12] MEDS: IOPAMIDOL-370 (76%);100ML BOTTLE 85 ML IV (14:19)
== END 2024-06-12 14:20 | disposition home or self-care (01) ==
PROVIDERS: PCP Nurse Practitioner Family; Visit Provider Physician Assistant
DX: R94.39 Abnormal result of other cardiovascular function study (principal); R94.31 Abnormal electrocardiogram [ECG] [EKG]
CPT/HCPCS: 75574; 80048; 81025; Q9967

== ENCOUNTER 2024-06-13 10:50 | Outpatient (CLI) | payer BC, SELFPAY ==
--- NOTE | 2024-06-13 10:53 | US_ITS ---
FINAL REPORT CLINICAL HISTORY: thyroid nodule COMPARISON: 11/29/2023 FINDINGS: The right lobe of the thyroid measures 4.6 x 2.0 x 1.1 cm. The left lobe of the thyroid measures 4.5 x 1.4 x 1.4 cm. The isthmus measures 4 mm. The 4 mm right thyroid lobe nodule with dense calcification is stable, considered benign. The previously described 4 mm nodule on the left is no longer evident. It is unclear if this nodule cannot be located or since resolved. IMPRESSION: No suspicious thyroid nodules. Reviewed, Interpreted and Dictated by Yolanda Howell MD Transcribed by Yesy Roberts Authenticated and . [facility]
== END 2024-06-13 23:59 | disposition home or self-care (01) ==
LOC: RAD 10:51
PROVIDERS: PCP Nurse Practitioner Family; Visit Provider Nurse Practitioner Family
DX: E04.1 Nontoxic single thyroid nodule (principal)
CPT/HCPCS: 76536

== ENCOUNTER 2024-07-07 12:15 | Outpatient (CLI) | payer OTHER, SELFPAY ==
[2024-07-07 12:26] LABS: Microscopic, Urine URINE MICROSCOPIC (MICROSCOPIC)
[2024-07-07 12:53] LABS: Eosinophils # 0.3 K/mm3 (0.0-0.4); Mean Corpuscular HGB Conc 33.4 g/dL (31.8-35.4); Monocytes # 0.5 K/mm3 (0.1-1.0); Monocytes % 5.2 % (1.7-9.3)
[2024-07-07 12:59] LABS: Basophils % 0.4 % (0.1-2.0); Eosinophils % 2.9 % (0.1-12.0); Hematocrit 43.1 % (37.0-47.0); Hemoglobin 14.4 g/dL (12.2-16.2); Lymphocytes # 1.7 K/mm3 (0.7-4.5); Lymphocytes % 18.1 % (10-50); Mean Corpuscular Hemoglobin 28.6 pg (27.0-31.2); Mean Corpuscular Volume 85.7 fl (81-99); Mean Platelet Volume 10.2 fl (7.4-10.4); Neutrophils # 6.8 K/mm3 (1.8-7.8); Neutrophils % 73.1 % (37.0-80.0); Platelet Count 249 K/mm3 (142-424); Red Blood Count 5.03 M/mm3 (4.20-5.40); Red Cell Distribution Width 14.2 % (11.5-17.5); White Blood Count 9.4 K/mm3 (4.8-10.8)
[2024-07-07 13:00] LABS: Activated Partial Thrombo Time 25.2 seconds (22.5-28.5); Fibrinogen 500 mg/dL (208.1-352.0); INR 0.96 (0.9-1.1); Prothrombin Time 10.6 seconds (9.2-12.1)
[2024-07-07 13:11] LABS: Appearance,Urine CLEAR (Clear); Blood, Urine Negative (Negative); Color,Urine YELLOW (Yellow); Glucose,Urine (UA) Negative (Negative); Ketones,Urine TRACE (Negative); Leukocyte Esterase,Urine 1+ (Negative); Nitrate,Urine Negative (Negative); PH,Urine 6.5 (5.0-8.5); Protein,Urine Negative (Negative); Specific Gravity, Urine 1.025 (1.005-1.030); Urobilinogen,Urine 0.2 EU/dl (0.2)
[2024-07-07 13:23] LABS: Bilirubin,Urine 1+ (Negative)
[2024-07-07 13:26] LABS: Alanine Aminotransferase 26 U/L (12-78); Albumin Level 4.5 g/dl (3.5-5.0); Alkaline Phosphatase 101 U/L (38-126); Anion Gap 11.5 mEq/L (5-15); Aspartate Amino Transferase 30 U/L (14-36); Bilirubin,Total 0.4 mg/dl (0.2-1.3); Blood Urea Nitrogen 13 mg/dl (7-17); Carbon Dioxide 27 mmol/L (22.0-30.0); Chloride 105 mmol/L (98-107); Estimated Glomerular Filt Rate 79 ml/min (>60); GFR (African American) 95 ML/MIN (>60); Globulin 2.2 g/dL (1.3-3.2); Glucose 94 mg/dl (74-100); Potassium 4.5 mmoL/L (3.5-5.1); Sodium 139 mmol/L (136-145); Total Protein,Serum 6.7 g/dl (6.3-8.2)
[2024-07-07 13:30] LABS: Bacteria,Urine 1+ /lpf; WBC,Urine Occasional #/hpf (0-3); Yeast,Urine Occasional /lpf
[2024-07-07 14:00] LABS: Total Iron Binding Capacity 358 ug/dL (265-497)
[2024-07-07 14:27] LABS: Ferritin 14.3 ng/ml (6.24-137)
== END 2024-07-07 23:59 | disposition home or self-care (01) ==
LOC: LAB 12:16
PROVIDERS: PCP Nurse Practitioner Family; Visit Provider Nurse Practitioner Family
DX: E61.1 Iron deficiency (principal); R35.0 Frequency of micturition; R79.1 Abnormal coagulation profile
CPT/HCPCS: 36415; 80053; 81001; 82728; 83550; 85025; 85384; 85610; 85730; 87086

== ENCOUNTER 2024-11-22 12:46 | Day surgery (SDC) | payer OTHER, SELFPAY ==
[2024-11-21 13:04] VITALS: BMI 40.1
[2024-11-22] MEDS: LACTATED RINGERS 1000ML 1,000 ML 50 ML IV ×2 (12:17→13:58)
[2024-11-22 13:42] VITALS: BP 140/86; PULSE 93; RESP 19; TEMP 36.4; O2SAT 95; BMI 40.1
[2024-11-22 15:40] VITALS: BP 124/85; PULSE 85; RESP 14; TEMP 36.6; O2SAT 92
[2024-11-22 15:50] VITALS: BP 134/93; PULSE 69; RESP 16; O2SAT 94
[2024-11-22 16:00] VITALS: BP 147/84; PULSE 64; RESP 17; TEMP 36.6; O2SAT 95
--- NOTE | 2024-11-22 18:25 | EXP.HP ---
History of Present Illness *Admission Date: 11/22/24 *History of present illness: Mrs. Adler is a 44-year-old female with retrosternal chest pain and pressure that can radiate between the shoulder blades. This does not radiate into her arms. She does feel that this is gas and she feels the need to belch but cannot. Belching can temporarily relieve this discomfort. She does state that Gas-X/simethicone did help at first. She has had moderate bloating and epigastric discomfort. She reports nausea and early satiety. She has had moderate to marked bloating. She does state that her bowel movements are regular and she evacuates but she does have excessive wiping. She reports no family history of cardiac disease. She has no radiation of the chest pain into her arms. She reports no angina pain with exertion and has no dyspnea. She has not had any prior EGD. She did have a colonoscopy at the [facility] in 2015 and was normal. She had an ultrasound the gallbladder in December 2023 which was normal. The patient reports no dysphagia. [facility] Disclaimer: The information contained in this section may have been updated after the patient was seen, as this information can be updated by other users. Medical History Near syncope Abnormal ECG Pre-op testing Abdominal bloating Concussion Seizure Anemia Ulcer Heart palpitations Herniated disc Normal colonoscopy Arthritis Vertigo Recurrent episodes of vertigo following head concussion some of them lasting several days and associated with speech disturbaces, mental fogginess. Osteoarthritis PTSD (post-traumatic stress disorder) Depression Anxiety Surgical History History of colonoscopy History of nasal septoplasty Family History Other Cancer Cutaneous lupus erythematosus Heart attack Hypertension Thyroid disorder Social History Smoking Status: Never smoker alcohol intake: never substance use type: denies use current occupational status: employed Travel in the last 8 weeks?: None household members: significant other housing: house marital status: single number of children: 0 Have you lived/traveled outside [place] in past 30 days?: No Contact w/someone who lives/traveled outside US past 30 days?: No Exposure to someone with infectious disease in past 14 days?: No Do you have a fever (greater than 100.4 F or 38 C)?: No Have you tested positive for COVID-19?: No Exposed to someone with COVID-19 in past 14 days?: No Do you have a sore throat?: No Do you have a cough?: No Do you have any weakness?: No Do you have any diarrhea?: No Are you experiencing any unusual bleeding?: No Do you have any muscle aches/pain?: No Do you have any abdominal pain?: No Are you experiencing loss of taste or smell?: No Other Medical History Have you received the Flu Vaccine for this season: No Have you received the Pneumonia Vaccine: No Review of Systems Review of Systems Review of systems (narrative): Negative *Cardiovascular Comments: Negative *Gastrointestinal Comments: Negative *Genitourinary Comments: Negative *Musculoskeletal Comments: Negative *Neurologic Comments: Negative Meds Home Medications and Allergies Home Medications ?Medication ?Instructions ?Recorded ?Confirmed ?Type methylphenidate HCl 54 mg 54 mg PO DAILY 08/09/23 11/21/24 History tablet,extended release 24 hr (Concerta) duloxetine 60 mg capsule,delayed 120 mg PO DAILY 09/03/23 11/21/24 History release gabapentin 300 mg capsule 300 mg PO QID 12/24/23 11/21/24 History lifitegrast 5 % eye drops in a 1 drp Eye-Both QAM AND QPM Chronic 08/22/24 09/29/24 Rx dropperette (Xiidra) dry eyes #60 ea tizanidine 4 mg tablet 4 mg PO Q8H PRN muscle spasticity 08/22/24 11/22/24 Rx #90 tabs cetirizine 10 mg tablet 10 mg PO DAILY PRN allergy 08/25/24 11/21/24 Rx symptoms #30 tabs New Prescriptions to Start Prescriptions: Allergies Allergy/AdvReac Type Severity Reaction Status Date / Time gluten AdvReac Intermediate Abdominal Verified 11/22/24 13:40 Pain lactose AdvReac Intermediate Abdominal Verified 11/22/24 13:40 Pain Exam Data for Last 24 hours Vital signs and Labs for Last 24 Hours: Temp Pulse Resp BP Pulse Ox O2 Del Method 97.6 F 93 H 19 140/86 95 Room Air 11/22/24 13:42 11/22/24 13:42 11/22/24 13:42 11/22/24 13:42 11/22/24 13:42 11/22/24 13:42 I & O for Last 24 hours: Intake & Output 11/19/24 11/20/24 11/21/24 11/22/24 23:59 23:59 23:59 23:59 Weight 272 lb 272 lb *Routine HEENT Exam Head: Present normocephalic Eye: Present EOMI and PERRL ENT: Present mucous membranes moist *Routine Neck Exam Neck: Present supple *Routine Respiratory Exam Respiratory: Present CTA bilaterally *Routine Cardiovascular Exam Cardiovascular: Present RRR *Routine Abdominal Exam Abdominal: Present soft and normoactive bowel sounds; Absent tenderness *Routine Rectal Exam Rectal:: deferred *Routine Genitalia Exam Genitalia:: deferred *Routine Extremities Exam Extremities: Absent cyanosis, clubbing or edema *Routine Skin Exam Skin: Present warm; Absent rash *Routine Neurological Exam Neurological: Present alert and oriented X3 Assessment and Plan *Assessment and plan (1) Bloating: Status: Acute Category: Medical Code(s): R14.0 - Abdominal distension (gaseous) (2) Nausea and vomiting: Status: Acute Category: Medical Code(s): R11.2 - Nausea with vomiting, unspecified (3) Belching: Status: Acute Category: Medical Code(s): R14.2 - Eructation (4) Functional dyspepsia: Status: Acute Category: Medical Code(s): K30 - Functional dyspepsia Plan A/P: 1. Bloating, dyspepsia, nausea and intermittent vomiting. She also has early satiety is the preprocedural diagnosis. The patient will be anesthetized/sedated using MAC sedation. The patient has been seen and examined. Cardiac and lung assessment prior to the examination is stable. Proceed with planned diagnostic EGD.
--- NOTE | 2024-11-22 18:28 | HMH.PROCNOTE ---
[facility] Procedure Note Date: 11/22/24 Time: 18:28 Procedure Note:: Upper Endoscopy Procedure Report: Esophagogastroduodenoscopy with cold biopsies Endoscopost: Jordy Schmid II, MD Referring Physician: TED Luke Date of Procedure: November 22, 2024 Equipment: Olympus GIF 190 standard upper endoscope Sedation: MAC sedation Indications: Mrs. Adler is a 44-year-old female who is here for diagnostic upper endoscopy. She was seen by me in March 2020 for with retrosternal chest pain and pressure that can radiate between the shoulder blades. She did feel that this is gas and she feels the need to belch but cannot. Belching can temporarily relieve this discomfort. She does state that Gas-X/simethicone did help at first. She has had moderate bloating and epigastric discomfort. She reported nausea and early satiety. She has had moderate to marked bloating. She does state that her bowel movements are regular and she evacuates but she does have excessive wiping. She reports no family history of cardiac disease. She has no radiation of the chest pain into her arms. She reports no angina pain with exertion and has no dyspnea. She has not had any prior EGD. She did have a colonoscopy at the [facility] in 2015 and was normal. She had an ultrasound the gallbladder in December 2023 which was normal. The patient reports no dysphagia. After her visit with me in March, she was placed on aonv-lxd-[id number] herbal Iberogast. At that time I had mentioned stopping carbonation. Overall she is improved. She is doing psyllium fiber as well. However, she has persistent postprandial bloating, belching, gassiness, nausea, early satiety and occasional vomiting. She reports no heartburn, reflux or dysphagia. She is not on PPI therapy. Procedure: Prior to the procedure, a history and physical exam was performed, and patient's medications and allergies were reviewed. The risks, benefits and alternatives of the sedation and procedure were discussed with the patient. All questions were answered and informed consent was obtained. The patient was brought to the procedure room. Patient identification and proposed procedure were verified by the physician and the nurse. The patient was placed in a left lateral decubitus position and the scope was passed under direct vision. Throughout the procedure, the patient's blood pressure, pulse, and oxygen saturations were monitored continuously. The upper GI endoscopy was accomplished without difficulty. The patient tolerated the procedure well. Findings: The scope was passed directly into the upper esophagus and advanced to the fourth portion of duodenum and proximal jejunum. Cold biopsies were taken x 4 of the proximal jejunum for disaccharidase assay. The proximal jejunum, post bulbar duodenum and duodenal bulb were normal with normal mucosa and conniventes. Cold biopsies were taken from the proximal duodenum to rule out celiac disease. The scope was withdrawn through a normal duodenal bulb and pylorus into the stomach. There was very mild linear reactive gastropathy in the antrum. The body and fundus of the stomach were normal. Upon retroflexion there was a very small sliding 2 cm hiatal hernia. Cold biopsies were taken from the antrum. The scope was then withdrawn into the esophagus. There was no evidence of reflux esophagitis or Lowery's. There were tertiary contractions and evidence of moderate esophageal dysmotility. The remainder of the esophageal mucosa was normal. Impression: 1. Nonerosive GERD with moderate esophageal dysmotility and small 2 cm hiatal hernia 2. Very mild linear reactive gastropathy of antrum Plan: I will follow-up the biopsies and recommend that she continue to be Iberogast twice daily. I would like to refer to be referred for low FODMAP diet (Kat Beckford) and the patient will contact. I have reiterated diaphragmatic breathing. I will check biopsies to rule out disaccharidase deficiency and if this is negative, I would consider broad digestive enzyme. I will have her follow-up again in 3 months and if she is not improved, we will discuss neuromodulation and possibly pelvic floor training.
--- NOTE | 2024-11-23 08:14 | P.PNANES_ITS ---
[facility] Disclaimer: The information contained in this section may have been updated after the patient was seen, as this information can be updated by other users. Medical History Near syncope Abnormal ECG Pre-op testing Abdominal bloating Concussion Seizure Anemia Ulcer Heart palpitations Herniated disc Normal colonoscopy Arthritis Vertigo Recurrent episodes of vertigo following head concussion some of them lasting several days and associated with speech disturbaces, mental fogginess. Osteoarthritis PTSD (post-traumatic stress disorder) Depression Anxiety Surgical History History of colonoscopy History of nasal septoplasty Family History Other Cancer Cutaneous lupus erythematosus Heart attack Hypertension Thyroid disorder Social History Smoking Status: Never smoker alcohol intake: never substance use type: denies use current occupational status: employed Travel in the last 8 weeks?: None household members: significant other housing: house marital status: single number of children: 0 Have you lived/traveled outside US in past 30 days?: No Contact w/someone who lives/traveled outside US past 30 days?: No Exposure to someone with infectious disease in past 14 days?: No Do you have a fever (greater than 100.4 F or 38 C)?: No Have you tested positive for COVID-19?: No Exposed to someone with COVID-19 in past 14 days?: No Do you have a sore throat?: No Do you have a cough?: No Do you have any weakness?: No Do you have any diarrhea?: No Are you experiencing any unusual bleeding?: No Do you have any muscle aches/pain?: No Do you have any abdominal pain?: No Are you experiencing loss of taste or smell?: No [facility] Anesthesia Checklist Patient Identification Patient Identification: Arm Band and Verbal (Name & ) Structural Data Admitted From: Home Planned Operative Procedure/s: EGD Consent for Planned Operative Procedure(s) Verified: Yes Verified Documents: Surgical Consent NPO Status Verified Time NPO: 00:00 Additional verifications Anesthesia Reactions: No Hx Blood Transfusions: No Blood Transfusion Reaction: No Neurological Assessment Level of Consciousness: Awake, Alert and Appropriate Anesthesia Plan Anesthesia Risk discussed: Yes Anesthesia Plan: Verified Anesthesia Type: MAC
[2024-11-23 10:29] LABS: Urine Pregnancy, HCG Qual. Negative (Negative)
[2024-11-28 16:12] LABS: Disclaimer Notes (.); Interpretation Notes (.); Lactase 34.06 (>/= 14.0); Maltase 267.96 (>/= 110.0); Palatinase 18.27 (>/= 8.5); Reference Notes (.); Sucrase 62.04 (>/= 25.0)
== END 2024-11-22 16:30 | disposition home or self-care (01) ==
PROVIDERS: PCP Family Medicine; Visit Provider Internal Medicine Gastroenterology
PROC: 0DJ08ZZ Inspection of Upper Intestinal Tract, Via Natural or Artificial Opening Endoscopic (ICD-10-PCS; CPT 43239; principal; 2024-11-22 15:00)
DX: K21.9 Gastro-esophageal reflux disease without esophagitis (principal); K31.89 Other diseases of stomach and duodenum; R14.0 Abdominal distension (gaseous); K30 Functional dyspepsia; K44.9 Diaphragmatic hernia without obstruction or gangrene; R11.2 Nausea with vomiting, unspecified; R14.2 Eructation; Z79.899 Other long term (current) drug therapy; Z91.011 Allergy to milk products; Z91.02 Food additives allergy status
CPT/HCPCS: 43239; 81025; 82657; J7120

== ENCOUNTER 2025-03-21 14:01 | Emergency (ER) | payer OTHER, SELFPAY ==
--- OUTSIDE RECORDS SUMMARY | 2021-02-07 07:16 | XMS_ITS | Continuity of Care Document ---
Author Organization [facility] Address [address] [place] [address] Phone Care Team Providers Care Annealing Furnace Operator Name Role Phone Aracelis Berumen MD Unavailable [...] on Encounter [facility], [address], [place], [place], [id number] , tel:[phone] [facility] No Information 1 Jamaica Hsu. [address] [facility], [facility] [address], [place], [address], [place]. tel:[phone] UNLISTED E&M SERVICE [facility], [address], [place], [place], [id number] , [place] tel:[phone] [facility] Biofinity OD and My Day OS (chief complaint) Myopia, bilateral 1 Augie Lozada. [address] [facility], [address], [place], [place], [address], [place]. [phone] [facility], [address], [place], [place], [address] , [place] tel:[phone] [facility] routine exam (chief complaint)vidhi rred va (chief complaint) Pigment dispersion syndrome of both eyesMyopia of both eyesRegular astigmatism of both eyesTransient visual loss of right eye 1 Augie Lozada. [address] [facility], [address], [place], [place], [id number], [place]. tel:[phone] [facility], [address], [place], [place], [address] , [place] tel:[phone] [facility] vision loss OD (chief complaint) Transient visual loss of right eyeHistory of concussionPDS (pigmentary dispersion syndrome), bilateral Vincent- 0 [place] Hsu. [address] [facility], [facility] [address], [place], [address], [place]. tel:[phone] Referring Provider: Aracelis Calderon, [address] [facility] [address], [place], [address]. tel:[phone] UNLISTED E&M SERVICE [facility], [address], [place], [place], [id number] , [place] tel: [phone] [facility] Glasses check (chief complaint) Myopia of both eyes 0 Lucier Kierra. [address] [facility], [address], [place], [place], [id number], [place]. [phone] [facility], [address], [place], [place], [address] , [place] tel: [phone] [facility] routine exam (chief complaint) Myopia of both eyesRegular astigmatism of both eyesPigment dispersion syndrome of both eyes 0 Lucier Kierra. [address] [facility], [address], [place], [place], [address], [place]. tel:[phone] [facility], [address], [place], [place], [address] , [place] tel: [phone] [facility] dryness (chief complaint) PDS (pigmentary dispersion syndrome), bilateralMyop ia, bilateralRegu lar astigmatism, bilateral 9 Lucier Kierra. [address] [facility], [address], [place], [place], [address], [place]. tel:[phone] [facility], [address], [place], [place], [address] , [place] tel: [phone] [facility] CL Comprehensive Eye Exam (chief complaint) Myopia of both eyesRegular astigmatism of both eyesPigment dispersion syndrome of both eyes 8 No Information [facility], [address], [place], [place], [address] , [place] tel: [phone] [facility] decreased vision (chief complaint) PDS (pigmentary dispersion syndrome), bilateralMyop ia of both eyesRegular astigmatism of both eyes - 7 No Information [facility], [address], [place], [place], [address] , [place] tel: [phone] [facility] CL check (chief complaint) Myopia of both eyes 6 No Information [facility], [address], [place], [place], [address] , tel: [phone] [facility] decreased vision (chief complaint) Myopia of both eyesAstigmati sm of both eyesPDS (pigmentary dispersion syndrome), bilateral Feb-2 6 No Information [facility], [address], [place], [place], [address] , tel: [phone] [facility] Routine exam (chief complaint)Con tact lens evaluation (chief complaint)Dry eyes (chief complaint) MyopiaAstigma tism, unspecifiedPi gmentary dispersion syndrome Feb-1 0- 5 No Information [facility], [address], [place], [place], [address] , tel: [phone] [facility] No Information Feb-0 5 No Information [facility], [address], [place], [place], [address] , tel: [phone] [facility] MyopiaPigment carmelo dispersion [...] Provider Payers Payer name Insurance type Covered green party ID Authoriza tion(s) No Information Social History Type Description Quantity Date Captured Comments Sex Female Smoking Status No Information Chief Complaint And Reason For Visit No Information Reason For Referral Reason For Referral No Information Plan Of Treatment Date Type Action Status Future Order: Radiology Order Ze [id number] ([id number]), Sent on: Sent Future Order: Radiology Order Ze [id number] ([id number]), Sent on: Sent History Of Present [...] by Dr. Berumen. History below taken by energy and conservation technician.states that when is started is was [...] - Return in 1 year w Kiera Ricthie for Complete Exam / Contacts Related to [...] above - Return in 1 year w lindsey Kiera Adorno for Complete Exam / Contacts. Related to [...] eyes - Return in 1 year w lindsey Kiera Adorno for Complete Exam / Contacts Related to Myopia of both eyes - Return in 1 year w lindsey Kiera Adorno for Complete Exam / Contacts. Related to [...] above - Return in 1 year w lindsey Kiera Adorno for Complete Exam / Contacts. Related to [...] See list of assessments above - Return 1 year with Son Valentine for Complete Exam / Contacts. Related to See impression: general plan General plan -Myopia -Pigmentary dispersion syndrome -Astigmatism - New glasses and contact lens prescription given to patient. Call with any questions, concerns or changes in vision. Discussed risks & benefits of Contact Lens wear. Educated patient about proper wear schedule with contact lenses. Discussed PDS, and importance of yearly eye exams with IOP checks, she understands. Related to See impression: general plan Assessments Type Assessment Date No Information Patient Care Teams Name Effective Dates (start - stop) Status Members No Information
[2025-03-21] VITALS (12 sets, daily range): BP systolic 102–135; BP diastolic 75–98; PULSE 93–223; RESP 9–29; TEMP 36.6–36.7; O2SAT 93–100; BMI 38.7
--- NOTE | 2025-03-21 14:05 | ECG_ITS ---
APPROVED REPORT Exam: Resting ECG HR:232 bpm ECG Measurements Heart Rate 232 AXES QRSd 81 QRS 69 QT 180 T -39 QTc 286 Conclusion SUPRAVENTRICULAR TACHYCARDIA MARKED ST DEPRESSION, CONSIDER SUBENDOCARDIAL INJURY [0.2+ mV ST DEPRESSION] ACUTE [place] UNCONFIRMED REPORT Narrow complex tachycardia with regular intervals consistent with SVT. Electronically signed by : ROSALIE FLORES, 03/21/2025 15:23:43
--- NOTE | 2025-03-21 14:16 | XR_ITS ---
PROCEDURE INFORMATION: Exam: XR Chest Exam date and time: 03/21/2025 3:22 PM Age: 45 years old Clinical indication: Shortness of breath; Additional info: Svt, SOB TECHNIQUE: Imaging protocol: Radiologic exam of the chest. Views: 1 view. COMPARISON: CT ABDOMEN PELVIS W CON 05/04/2024 10:32 AM FINDINGS: Limitations: Large amount of overlying soft tissue and defibrillator or pacer pads overlying the patient obscures visualization. Tubes, catheters and devices: Defibrillator or pacer pads overlie the patient. Cardiac leads overlie the patient. Lungs: Patchy increased density within the right and left lower lung more likely corresponds to overlapping densities. No focal dense airspace consolidation. No CHF. Pleural spaces: No large pleural effusion. No pneumothorax. Heart/Mediastinum: Heart size is normal. Mediastinal contours are smooth. Bones/joints: Mild degenerative changes are present within the spine. IMPRESSION: No acute cardiopulmonary process by imaging. Heart size is within normal limits. The lungs are clear. No large pleural effusion or pneumothorax.
[2025-03-21 14:26] LABS: Albumin Level 3.9 g/dl (3.5-5.0); Chloride 110 mmol/L (98-107); Hematocrit 37.8 % (37.0-47.0); Hemoglobin 12.8 g/dL (12.2-16.2); Immature Granulocytes % 0.1 %; Mean Corpuscular HGB Conc 33.9 g/dL (31.8-35.4); Mean Corpuscular Hemoglobin 28.3 pg (27.0-31.2); Mean Corpuscular Volume 83.4 fl (81-99); Nucleated Red Blood Cells % 0 %; Platelet Count 256 K/mm3 (142-424); Red Blood Count 4.53 M/mm3 (4.20-5.40); Red Cell Distribution Width-SD 43.6 fL; Sodium 139 mmol/L (136-145); White Blood Count 7.1 K/mm3 (4.8-10.8)
[2025-03-21 14:27] LABS: Potassium 3.9 mmoL/L (3.5-5.1)
[2025-03-21 14:29] LABS: Alanine Aminotransferase 23 U/L (12-78); Alkaline Phosphatase 85 U/L (38-126); Anion Gap 11.9 mEq/L (5-15); Aspartate Amino Transferase 27 U/L (14-36); Bilirubin,Total 0.5 mg/dl (0.2-1.3); Blood Urea Nitrogen 14 mg/dl (7-17); Carbon Dioxide 21 mmol/L (22.0-30.0); Creatinine,Serum 0.70 mg/dl (0.52-1.04); Estimated Glomerular Filt Rate 91 ml/min (>60); GFR (African American) 111 ML/MIN (>60)
[2025-03-21 14:30] LABS: Albumin/Globulin Ratio 1.9 (1.1-1.8); Calcium 9.4 mg/dl (8.4-10.2); Globulin 2.1 g/dL (1.3-3.2); Glucose 125 mg/dl (74-100); Total Protein,Serum 6.0 g/dl (6.3-8.2)
--- OUTSIDE RECORDS SUMMARY | 2025-03-21 14:31 | XMS_ITS | CCD ---
Author Name Interface, [id number] lity Address [address] [place] [id number] [facility] Address [address] [place] [id number] Care Team Providers Care Distribution Spec Name Role Phone Courtney FARR, Wilton Unavailable Unavailable Allergies and Adverse Reactions Medication/Group Name Reaction Severity Date gluten 09/26/2024 lactose 09/26/2024 Care Plan Date Type Value 11/07/2024 APPOINTMENT FOLLOW UP 09/26/2024 APPOINTMENT Lab 09/26/2024 APPOINTMENT NEW PATIENT 09/26/2024 LABORDER Ferritin 09/26/2024 LABORDER Iron profile 09/26/2024 LABORDER CMP 09/26/2024 LABORDER CBC w/ auto diff 09/26/2024 LABORDER Vitamin B12 Reason for Visit FOLLOW UP Encounters Date Name 09/26/2024 Coagulation/bleeding tests abnormal (finding) Diagnostic Results Date Type Test Units Lower Limit Upper Limit Result Flag Comments Status Ordered By Specimen Source Lab Address 09/26 Brea tin panel Brea tin ng/mL 15.0 150.0 45 FINAL [facility] , [address] [facility] [phone] Terry Manrique i, PhD 09/26 Iron profi le Iron, % satur ation % 15.0 55.0 11 Low FINAL [place] [facility] [phone], [address] [facility] [phone] 9 Terry Manrique i, PhD 09/26 Iron profi le Iron ug/dL 27.0 159.0 36 FINAL [place] [facility] [phone], [address] [facility] [id number] 9 Terry Manrique i, PhD 09/26 Iron profi le TIBC ug/dL 250.0 450.0 326 FINAL [place] [facility] [phone], [address] [facility] [place] [id number] 9 Terry Manrique i, PhD 09/26 Iron profi le Unbou nd iron capac ity ug/dL 131.0 425.0 290 FINAL [place] [facility] [phone], [address] [facility] [place] [id number] 9 Terry Manrique i, PhD 09/26 Vitam in B12 pg/mL 232.0 1245.0 1798 High FINAL [place] [facility] [phone], [address] [facility] [place] [place] [id number] 9 Terry Manrique i, PhD 09/26 Alkal ine phosp hatas e IU/L 44.0 121.0 127 High FINAL [place] [facility] [phone], [address] [facility] [place] [place] [id number] 9 Terry Manrique i, PhD 09/26 Calci um mg/dL 8.7 10.2 9.7 FINAL [place] [facility] [phone], [address] [facility] [place] [place] [id number] 9 Terry Manrique i, PhD 09/26 ALT/S GPT IU/L 0.0 32.0 [address] [place] [facility] [phone] [address] [facility] [place] [place] [id number] 9 Terry Manrique i, PhD 09/26 CO2 mmol/L 20.0 29.0 [address] [place] [facility] [phone] [address] [facility] [place] [place] [id number] 9 Terry Manrique i, PhD 09/26 Gluco se mg/dL 70.0 99.0 101 High FINAL [place] [facility] [phone] [address] [facility] [place] [id number] 9 Terry Manrique i, PhD 09/26 Globu ceci g/dL 1.5 4.5 2.4 FINAL [place] [facility] , [address] [facility] [id number] 9 Terry Manrique i PhD 09/26 Chlor roseline mmol/L 96.0 106.0 105 FINAL [place] [facility] , [address] [facility] [id number] 9 Terry Manrique i PhD 09/26 Total prote in g/dL 6.0 8.5 6.7 FINAL [place] [facility] , [address] [facility] [id number] 9 Terry Manrique i PhD 09/26 BUN mg/dL 6.0 24.0 9 FINAL [place] [facility] , [address] [facility] [id number] 9 Terry Manrique i PhD 09/26 Creat inine mg/dL 0.57 1.0 0.91 FINAL [place] [facility] , [address] [facility] [id number] 9 Terry aMnrique i PhD 09/26 eGFR mL/min /1.73 81 FINAL [place] [facility] , [address] [facility] [id number] 9 Terry Manrique i, PhD 09/26 AST/S GOT IU/L 0.0 40.0 [address] [place] [facility] , [address] [facility] [id number] 9 Terry Manrique i PhD 09/26 Album in g/dL 3.9 4.9 4.3 FINAL [place] [facility] , [address] [facility] [id number] 9 Terry Manrique i PhD 09/26 Bilir ubin, total mg/dL 0.0 1.2 0.2 FINAL [place] [facility] , [address] [facility] [id number] 9 Terry Manrique i PhD 09/26 Sodiu m mmol/L 134.0 144.0 142 FINAL [place] [facility] [phone], [address] [facility] [phone] 9 Terry Manrique i PhD 09/26 BUN/C reati nine ratio 9.0 23.0 10 FINAL [place] [facility] [phone], [address] [facility] [id number] 9 Terry Manrique i PhD 09/26 Potas sium mmol/L 3.5 5.2 4.4 FINAL [place] [facility] [phone], [address] [facility] [id number] 9 Terry Manrique i PhD 09/26 Josue # (ANC) x10E3/ uL 1.4 7.0 3.7 FINAL [place] [facility] [phone], [address] [facility] [id number] 9 Terry Manrique i PhD 09/26 MCV fL 79.0 97.0 87 FINAL [place] [facility] [phone], [address] [facility] [id number] 9 Terry Manrique i PhD 09/26 MO # x10E3/ uL 0.1 0.9 0.4 FINAL [place] [facility] [phone], [address] [facility] [id number] 9 Terry Manrique i PhD 09/26 IG % % 0 FINAL [place] [facility] [phone], [address] [facility] [id number] 9 Terry Manrique i PhD 09/26 MO % % 6 FINAL [place] [facility] [phone], [address] [facility] [id number] 9 Terry Manrique i PhD 09/26 IG # x10E3/ uL 0.0 0.1 0.0 FINAL [place] [facility] [phone], [address] [facility] [id number] 9 Terry Manrique i PhD 09/26 Immat ure cells No result FINAL [place] [facility] [phone], [address] [facility] [id number] 9 Terry Manrique i, PhD 09/26 EO # x10E3/ uL 0.0 0.4 0.2 FINAL [place] [facility] [phone], [address] [facility] [id number] 9 Terry Manirque i, PhD 09/26 EO % % 3 FINAL [place] [facility] , [address] [facility] [id number] 9 Terry Manrique i, PhD 09/26 RBC x10E6/ uL 3.77 5.28 5.12 FINAL [place] [facility] [phone], [address] [facility] [id number] 9 Terry Manrique i, PhD 09/26 NRBC, % 0 FINAL [place] [facility] [phone], [address] [facility] [id number] 9 Terry Manrique i, PhD 09/26 WBC x10E3/ uL 3.4 10.8 5.7 FINAL [place] [facility] [phone], [address] [facility] [id number] 9 Terry Manrique i, PhD 09/26 PLT x10E3/ uL 150.0 450.0 256 FINAL [place] [facility] [phone], [address] [facility] [id number] 9 Terry Manrique i, PhD 09/26 BA % % 1 FINAL [place] [facility] [phone], [address] [facility] [id number] 9 Terry Manrique i, PhD 09/26 BA # x10E3/ uL 0.0 0.2 0.1 FINAL [place] [facility] [phone], [address] [facility] [id number] 9 Terry Manrique i, PhD 09/26 CBC Comme nts No result FINAL [place] [facility] [phone], [address] [facility] [place] [id number] 9 Terry Manrique i, PhD 09/26 HGB g/dL 11.1 15.9 14.6 FINAL [place] [facility] , [address] [facility] [place] [place] [id number] 9 Terry Manrique i, PhD 09/26 RDW % 11.7 15.4 13.6 FINAL [place] [facility] [place] , [address] [facility] [place] [id number] 9 Terry Manrique i, PhD 09/26 LY % % 25 FINAL [place] [facility] [place] , [address] [facility] [place] [place] [id number] 9 Terry Manrique i, PhD 09/26 MCH pg 26.6 33.0 28.5 FINAL [place] [facility] [phone], [address] [facility] [id number] 9 Terry Manrique i, PhD 09/26 LY # x10E3/ uL 0.7 3.1 1.4 FINAL [place] [facility] [place] , [address] [facility] [id number] 9 Terry Manrique i, PhD 09/26 MCHC g/dL 31.5 35.7 32.9 FINAL [place] [facility] [place] , [address] [facility] [id number] 9 Terry Manrique i, PhD 09/26 HCT % 34.0 46.6 44.4 FINAL [place] Valdez [facility] , [address] [facility] [id number] 9 Terry Manrique i, PhD 09/26 Josue % % 65 FINAL [place] Valdez [facility] , [address] [facility] [id number] 9 Terry Manrique i, PhD 09/26 PDF Repor t1 See attache fierro FINAL [place] Valdez [facility] , [address] [facility] [id number] 9 Terry Manrique i, PhD Medications Date Name Route Dose Frequency Instructions Start Date End Date Status Fill Status Indication 09/26 Gabapentin Oral active 09/26 Mirtazapin e Oral active 09/26 Tizanidine Oral active 09/26 Methylphen idate Oral active 09/26 Cetirizine Oral active 09/26 Duloxetine Oral Delayed Release active Problems Diagnosis Status Date of Diagnosis Resolution Date Advance directive informatio n unavailable (finding) Active Iron deficiency Active Coagulation/bleeding tests a bnormal (finding) Active Anemia Active Cannot tolerate oral iron Active Ecchymosis (finding) Active Procedures Date Category Name Instructions Status 11/07/2024 Physician Order RTC MD Ordered Social History Date Name Value 09/26/2024 Smoking Status Never smoker 08/07/2024 Sex Female Vital Signs Date Type Value 09/26/2024 Height 70.00 09/26/2024 Heart Beat 97.00 09/26/2024 Oxygen Saturation 97.00 09/26/2024 BSA 2.41 09/26/2024 Pain Scale 6.00 09/26/2024 Weight 281.40 09/26/2024 BMI 40.38 09/26/2024 Intravascular Systolic 134 09/26/2024 Intravascular Diastolic 81 Notes Section * New Patient Clinic Note Patient:?FAY BLACKMON Date:?09/26/2024 :?02/24/1980 Attending Physician:?Wilton Valdez Diagnosis * Coagulation/bleeding tests abnormal (finding) * Iron deficiency Chief Complaint Referral for iron deficiency HPI The patient is a 44 year old female who was referred for treatment of iron deficiency.?She firsthad iron deficiency 2 years ago that she attributes to a combination of menstrual bleeding and malabsorption. She cannot tolerate oral iron due to nausea and vomiting. She has also tried liquid iron and cannot tolerate it. She denies overt menorrhagia. She denies taking antacids. She denies past abdominal surgeries and she has not had children. She is gluten sensitive.?She reports fatigue thatis chronic and moderate to severe at times.?She reports also being told that her iron is too lowfor knee replacement. She denies BRBPR, melena or hematuria. Her appetite is normal and her diet isnormal.? Her activity level is decreased due to fatigue. She denies fevers, chills, headache, dizziness, double vision, impaired vision, chest pain, palpitations, cough, wheezing, nausea, vomiting, abdominal pain, bleeding, bruising, rash, itching, hematuria, dysuria, tingling, numbness or bone pain. Past Medical History * Coagulation/bleeding tests abnormal (finding) * Iron deficiency * Advance directive information unavailable (finding) * Anemia * Ecchymosis (finding) Past Surgical History * Procedure: Nasal septoplasty (procedure) Family History * Father: Alive and Well * Mother: Alive and Well Negative for Blood disorders Social History Smoking Tobacco : Never smoker; Smokeless Tobacco : Never used smokeless tobacco; Vaping : Never vaped Hospitalizations ? Review of Systems Constitutional: No weight loss, no fever, no chills, no night sweats, energy level good.? Eyes: No diplopia, no transient or permanent loss of vision, no scotomata.? ENT/Mouth: No tinnitus, no epistaxis, no hoarseness, no oral ulcers, no gingival bleeding, no sore throat, ?no mouth pain, no sinus pain, no dysphagia.? Cardiovascular: No chest pain, no palpitations, no syncope, no upper extremity edema, no lower extremity edema, no calf discomfort.? Respiratory: No Cough, no hemoptysis, ?no wheezing.? Gastrointestinal: No abdominal pain, no nausea, no vomiting, no constipation, no BRBPR, no jaundice, no abnormal cramping, no hematemesis, no diarrhea, no melena, no dyspepsia, no dysphagia.? Musculoskeletal: No muscle pain, no swollen joints redness, no bone pain, no spine tenderness.? Skin: No rash, no nodules, no pruritus, no lesions.? Neurological: No Confusion, no seizures, no syncope, no tremor, no speech change, no headache,?no weakness, no sensory changes.? Psychiatric: No depression, no anxiety, concentration normal.? Endocrine: No polyuria, no polydipsia, no thyroid disease symptoms, no hot flashes.? Hematologic: No epistaxis, no bleeding, no petechiae, no ecchymosis.? Lymphatic: No lymphadenopathy, no lymphedema.? Allergy/Immunologic: No eczema, no frequent mucous membrane infections, no frequent respiratory infections,?no frequent skin infection. ? Allergies/Adverse Events ? Medications * Cetirizine Oral * Duloxetine Oral Delayed Release * Tizanidine Oral * Gabapentin Oral * Methylphenidate Oral * Mirtazapine Oral Mental/Functional ECOG Status=1 ? Vitals Blood pressure: 134/81, Pulse: 97, Temperature: , Respirations: , O2 sat: 97%, Pain Scale: 6, Height: 70 in, Weight: 281.4 lb, BSA: 2.41, BMI: 40.38 kg/m2 Physical Exam GEN: Well-developed, well nourished, well appearing female, alert and oriented, no apparent distress. HEAD: Normocephalic, Atraumatic.? EYES: PERRLA, EOMI, Sclerae clear.? MOUTH/THROAT: No erythema, exudate or signs of infection.? NECK: Normal in appearance, nontender, supple, no masses.? LUNGS: Clear to auscultation bilaterally, no wheezes, rhonchi or rales, Breath sounds are equal bilaterally.? CV: RRR, Normal S1 and S2, No S2 or S4, No murmur/rub/gallop, No Increased JVP visible. ABDOMEN: Soft, nontender to palpitation, no guarding or rebound, no hepatomegaly, no splenomegaly, no masses.? LYMPH NODES: There is no cervical, supraclavicular, infraclavicular or axillary adenopathy palpable.? EXT: No Clubbing, cyanosis or edema.? MUSCULOSKELETAL: Normal Inspection, no muscle tenderness.? NEURO: Motor is normal, sensation grossly intact, CN II-XII intact SKIN: No lesions. Skin is warm and dry.? * gluten * lactose Assessment & Plan Iron deficiency she reports that she cannot tolerate oral iron due to severe gastrointestinal distress.? In addition, she is gluten sensitive and has a component of malabsorption.? I will check a CBC, CMP, iron profile, ferritin and?B12 level.? If iron deficiency is confirmed, we will make plans to give intravenous iron.? I discussed giving iron sucrose and the potential side effects.? She states that she understands and that she accepts them.? She and her understand and agree withour plan.? They were both given the opportunity to ask questions and all of their questions wereanswered. Cannot tolerate oral iron As above Plan: CBC, CMP, iron profile, ferritin and B12 level ordered IV iron if iron deficiency confirmed Follow-up telephonically Follow-up in 6 weeks Thank you for allowing me to participate in FAY BLACKMON?'s medical care. It is of course a privilege and I will certainly keep you informed of the progress of this ongoing evaluation. Respectfully, Sunny Valdez M.D. [facility] Problem List * Coagulation/bleeding tests abnormal (finding) * Iron deficiency * Advance directive information unavailable (finding) * Anemia * Ecchymosis (finding) Today's Regimen ? Laboratory None Today New Orders ? * 09/26/2024, CBC w/ auto diff, Perform Date: 09/26/2024, Associated problem(s): Coagulation/bleedingtests abnormal (finding) * (R79.1); Iron deficiency * (E61.1) * 09/26/2024, CMP, Perform Date: 09/26/2024, Associated problem(s): Coagulation/bleeding tests abnormal (finding) * (R79.1); Iron deficiency * (E61.1) * 09/26/2024, Ferritin, Perform Date: 09/26/2024, Associated problem(s): Coagulation/bleeding tests abnormal (finding) * (R79.1); Iron deficiency * (E61.1) * 09/26/2024, Iron profile, Perform Date: 09/26/2024, Associated problem(s): Coagulation/bleeding tests abnormal (finding) * (R79.1); Iron deficiency * (E61.1) * 09/26/2024, Vitamin B12, Perform Date: 09/26/2024, Associated problem(s): Coagulation/bleeding tests abnormal (finding) * (R79.1); Iron deficiency * (E61.1) ? * 09/26/2024, RTC , Perform Date: 6 Weeks, Associated problem(s): Coagulation/bleeding tests abnormal (finding) * (R79.1); Iron deficiency * (E61.1) ? Wilton Valdez Send copy of note to:? Electronically signed by Wilton Valdez MD 09/26/2024 17:52 EDT
--- OUTSIDE RECORDS SUMMARY | 2025-03-21 14:31 | XMS_ITS | Clinical Summary ---
Author Organization [facility] Address [address] [place] [address] Care Team Providers Care Blue Leather Sorter Name Role Phone Unavailable Primary Care Provider Unavailabl e Social History Tobacco Use Types Packs/Day Years Used Date Smoking Tobacco: Never Assessed Comments Unknown Sex and Gender Information Value Date Recorded Sex Assigned at Not on file Legal Sex Female 2:10 PM EST Gender Identity Not on file Sexual Orientation Not on file Plan of Treatment Health Maintenance Due Date Last Done Comments [facility]-Depression Screening 02/24/1982 [facility]-Infant/Child/Adol SDOH Screenings 02/25/1982 [facility]-Varicella Vaccines (1 of 2 - 13+ 2-dose series) 02/24/1995 [facility]- SDOH Screenings 02/25/2000 [facility]-Adult SDOH Screenings 02/25/2000 [facility]-DTaP,Tdap,and Td Vaccine s (1 - Tdap) 02/24/2001 [facility]-Hepatitis B Vaccines (1 of 3 - 19+ 3-dose series) 02/24/2001 [facility]-Pap Smear 02/24/2003 HPV Vaccines (1 - 3-dose SCD M series) 02/24/2009 [facility]-Cervical Cancer Screening 02/25/2012 [facility]-HPV/Cotest 02/25/2012 [id number] Vaccine (1 - 20 24-25 season) 2025 [facility]-Influenza Vaccine (#1) 2025 [facility]-Zoster Vaccines (1 of 2) 02/25/2032 [facility]-HIB Vaccines Aged Out No longer e ligible based on patient's age to complete this topic [facility]-Hepatitis A Vaccines Aged Out No longer eligible based on patient's age to complete this topic [facility]-IPV Vaccines Aged Out No longer e ligible based on patient's age to complete this topic [facility]-Pneumococcal Vaccine: Pediatrics (0 to 5 Years) and At-Risk Patients (6 to 49 Years) Aged Out No long er eligible based on patient's age to complete this topic [facility]-Rotavirus Vaccines Aged Out No lo nger eligible based on patient's age to complete this topic
--- OUTSIDE RECORDS SUMMARY | 2025-03-21 14:31 | XMS_ITS | Encounter Summary ---
Author Organization [place] [address] Care Team Providers Care Assistant Grocery Name Role Phone Cira Rasheed DO Primary Care Provide r Encounter Details Date Type Department Care Team (Latest Contact Info) Description 01/03/2025 Results Follow-Up [facility] [address] [place] [address] Cira Rasheed DO [address] [place] [address] COMPREHENSIVE METABOLIC PANEL, LIPID SCREEN, HEMOGLOBIN A1C, Additional followed-up results: 4 Social History Tobacco Use Types Packs/Day Years Used Date Smoking Tobacco: Never Comments Unknown Sex and Gender Information Value Date Recorded Sex Assigned at Not on file Legal Sex Female 3:02 PM EST Gender Identity Not on file Sexual Orientation Not on file documented as of this encounter Plan of Treatment Upcoming Encounters Date Type Department Care Team (Late st Contact Info) Description 05/07/2025 3:15 PM EST Office Visit [facility] [address] [place] [address] Roxie Iyer, REFORESTATION WORKER [address] [place] [address] documented as of this encounter Goals Goal Patient Goal Type Associated Problems Recent Progress Patient-Stated? Author Maintain a healthy diet, exercise regularly and maintain an ideal body weight General No Jasper Mars MA documented as of this encounter Visit Diagnoses Not on filedocumented in this encounter Care Teams Assistant Grocery Relationship Specialty Start Date End Date Cira Rasheed DO [address] [place] [address] PCP - General Family Medicine 01/01/25 documented as of this encounter
--- OUTSIDE RECORDS SUMMARY | 2025-03-21 14:31 | XMS_ITS | Clinical Summary ---
Author Organization [facility] Address [address] [place] [address] Phone Care Team Providers Care Co Pilot Name Role Phone Cria Rasheed DO Primary Care Provide r Allergies Active Allergy Reactions Criticality Noted Date Comments Gluten Protein Diarrhea,Nausea Only,Swelling High 04/29/2020 Milk Containing Products (Dairy) Nausea And Vomiting,Nausea Only Medium 04/29/2020 Medications gabapentin (NEURONTIN) 300 mg Oral Capsule Take 300 mg by mouth. 0 Active XIIDRA 5 % Opht Dropperette 2 Active Concerta 54 mg tablet,extended release 4 Active mirtazapine (REMERON) 15 mg Oral Tablet Take 15 mg by mouth. 3 Active cetirizine (ZYRTEC) 10 mg Oral Tablet 4 Active DULoxetine (CYMBALTA) 60 mg Oral Capsule, Delayed Release(E.C.) Take 120 mg by mouth daily. From Psychiatry Dr. Iban Pelayo- [facility] 4 Active tiZANidine (ZANAFLEX) 4 mg Oral TabletIndication s:Lumbar sprain, initial encounter Take 1 Tablet by mouth nightly as needed for Muscle spasms. 30 Tablet 5 Active lamoTRIgine (LAMICTAL) 25 mg Oral Tablet Take 25 mg by mouth daily. Active Active Problems Problem Noted Date Diagnosed Date Vertigo 12/28/2024 Overview (12/28/2024): Has seen several neurologists, but states vertigo is severe Primary osteoarthritis of both knees 12/16/2023 Attention deficit hyperactiv ity disorder (ADHD), combined type 03/08/2023 Sleep apnea 08/28/2022 Tear of medial meniscus of left knee, current Vitamin D deficiency 05/29/2020 Overview (09/10/2023): Vitamin D 28 Start Vit D 50,000 IU weekly x 12 weeks ( 05/29/2020) Vitamin D 28 -> 44 with supplementation Recommended daily Vit D OTC supplementation Vitamin D 28 Start Vit D 50,000 IU weekly x 12 weeks ( 05/29/2020) Last Assessment & Plan: Vitamin D 28 -> 44 with supplementation Recommended daily Vit D OTC supplementation Vitamin D 28 -> 44 with supplementation Recommended daily Vit D OTC supplementation Vitamin D 28 Start Vit D 50,000 IU weekly x 12 weeks ( 05/29/2020) Last Assessment & Plan: Vitamin D 28 -> 44 with supplementation Recommended daily Vit D OTC supplementation Bulging lumbar disc 05/08/2020 Overview (09/10/2023): Chronic , started 08/2019- Reviewed MRI completed at [facility] MRI shows disc bulge L3-L5 She is currently in physical therapy which has provided minimal relief, encouraged her to continue We discussed establishing with pain specialist - discussed potential treatment plans including epidural Continue gabapentin dosing to 300 mg TID instead of current dose of 300 mg AM four times/ day Last Assessment & Plan: Chronic , started 08/2019- Reviewed MRI completed at [facility] MRI shows disc bulge L3-L5 She is currently in physical therapy which has provided minimal relief, encouraged her to continue We discussed establishing with pain specialist - discussed potential treatment plans including epidural Continue gabapentin dosing to 300 mg TID instead of current dose of 300 mg AM four times/ day Chronic , started 08/2019- Reviewed MRI completed at [facility] MRI shows disc bulge L3-L5 She is currently in physical therapy which has provided minimal relief, encouraged her to continue We discussed establishing with pain specialist - discussed potential treatment plans including epidural Continue gabapentin dosing to 300 mg TID instead of current dose of 300 mg AM four times/ day Last Assessment & Plan: Chronic , started 08/2019- Reviewed MRI completed at [facility] MRI shows disc bulge L3-L5 She is currently in physical therapy which has provided minimal relief, encouraged her to continue We discussed establishing with pain specialist - discussed potential treatment plans including epidural Continue gabapentin dosing to 300 mg TID instead of current dose of 300 mg AM four times/ day Scoliosis 05/08/2020 History of brain concussion 02/26/2020 Overview (12/28/2024): 2851-4294, slipped on wet floor, vertigo and some temporary memory loss MDD (major depressive disord er), recurrent episode, moderate 10/03/2019 Overview (09/10/2023): Chronic worsening Currently on Cymbalta 60 mg daily and Remeron 30 mg Previously tried : Lexapro, Prozac ( no benefit ) Currently seeing a aids social worker , previously saw psychiatry but is no longer. Last Assessment & Plan: Chronic worsening Currently on Cymbalta 60 mg daily and Remeron 30 mg Previously tried : Lexapro, Prozac ( no benefit ) Currently seeing a aids social worker , previously saw psychiatry but is no longer. Chronic improving Current treatment - Cymbalta 120 mg, Gabepentin 300 mg BID And 100 mg one time day, Remeron 7.5 mg She is currently doing ketamine infusions - discussed d/c Continue to follow with psychiatry Discussed diagnosis and treatment options, including further education, counseling and medical therapy. Recommend no alcohol, increased exercise, and adequate sleep. Risk, benefits and potential side effects of medication discussed. Patient agrees to go to ER if severe reactions to medication or if suicidal thoughts occur. Patient also informed to avoid illicit use of prescription drugs or substances. Last Assessment & Plan: Chronic improving Current treatment - Cymbalta 120 mg, Gabepentin 300 mg BID And 100 mg one time day, Remeron 7.5 mg She is currently doing ketamine infusions - discussed d/c Continue to follow with psychiatry Discussed diagnosis and treatment options, including further education, counseling and medical therapy. Recommend no alcohol, increased exercise, and adequate sleep. Risk, benefits and potential side effects of medication discussed. Patient agrees to go to ER if severe reactions to medication or if suicidal thoughts occur. Patient also informed to avoid illicit use of prescription drugs or substances. Chronic improving Current treatment - Cymbalta 120 mg, Gabepentin 300 mg BID And 100 mg one time day, Remeron 7.5 mg She is currently doing ketamine infusions - discussed d/c Continue to follow with psychiatry Discussed diagnosis and treatment options, including further education, counseling and medical therapy. Recommend no alcohol, increased exercise, and adequate sleep. Risk, benefits and potential side effects of medication discussed. Patient agrees to go to ER if severe reactions to medication or if suicidal thoughts occur. Patient also informed to avoid illicit use of prescription drugs or substances. Last Assessment & Plan: Chronic improving Current treatment - Cymbalta 120 mg, Gabepentin 300 mg BID And 100 mg one time day, Remeron 7.5 mg She is currently doing ketamine infusions - discussed d/c Continue to follow with psychiatry Discussed diagnosis and treatment options, including further education, counseling and medical therapy. Recommend no alcohol, increased exercise, and adequate sleep. Risk, benefits and potential side effects of medication discussed. Patient agrees to go to ER if severe reactions to medication or if suicidal thoughts occur. Patient also informed to avoid illicit use of prescription drugs or substances. 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 Regular astigmatism 09/01/2016 Seborrheic dermatitis 09/21/2013 Anxiety and depression 01/15/2009 Social anxiety disorder 01/15/2009 Hx of obsessive compulsive disorder 01/15/2001 Encounters Date Type Department Care Team Description 01/03/2025 Orders Only [facility] [place] [address] Jasper Mars MA Family history of thyroid disease in sister (Primary Dx) 01/03/20[facility] [address] Cira Rasheed, DO COMPREHENSIVE METABOLIC PANEL, LIPID SCREEN, HEMOGLOBIN A1C, Additional followed-up results: 4 01/01/2025 Orders Only [facility] [place] [place] [address] Cira Rasheed, DO Preoperative clearance (Primary Dx); Screening for lipid disorders 12/28/2024 1:20 PM EDT Office Visit [facility] [place] [address] [place] [address] Cira Rasheed, DO Preoperative clearance (Primary Dx); Chronic pain of right knee; History of brain concussion; Screening for lipid disorders; Screening for diabetes mellitus (DM); History of iron deficiency; Low serum ferritin level; Family history of thyroid disease in sister; Vertigo 12/25/2024 Travel 12/19/2024 Telephone [facility] [place] [address] [place] [address] Cira Rasheed, DO Appointment Needed (New patient pre op ???) from Last 3 Months Family History Medical History Relation Name Comments Heart Disease Father Depression Mother High Blood Pressure Mother Lupus Mother Rheum Arthritis Mother Heart Disease Paternal Grandfather hypothyroid Sister 1 hyperthyroid Sister 2 Relation Name Status Comments Father Alive Mother Alive Paternal Grandfather Sister 1 Alive Sister 2 Alive Social History Tobacco Use Types Packs/Day Years Used Date Smoking Tobacco: Never Tobacco Cessation:Counseling Given: Not Answered Comments Unknown Sex and Gender Information Value Date Recorded Sex Assigned at Not on file Legal Sex Female 3:02 PM EST Gender Identity Not on file Sexual Orientation Not on file Obstetrics History Last Filed Vital Signs Vital Sign Reading Time Taken Comments Blood Pressure 108/70 12/28/2024 1:28 PM EDT Pulse 101 12/28/2024 1:28 PM EDT Temperature 36.8 C (98.2 F) 12/28/2024 1:28 PM EDT Respiratory Rate 18 12/28/2024 1:28 PM EDT Oxygen Saturation 98% 12/28/2024 1:28 PM EDT Inhaled Oxygen Concentration - - Weight 128.4 kg (283 lb) 12/28/2024 1:28 PM EDT Height 175.3 cm (5' 9 ) 12/28/2024 1:28 PM EDT Body Mass Index 41.79 12/28/2024 1:28 PM EDT Plan of Treatment Upcoming Encounters Date Type Department Care Team (Late st Contact Info) Description 05/07/2025 3:15 PM EST Office Visit [facility] [address] [place] [id number] Roxie Iyer, DRAMA PROFESSOR [address] [place] [address] Health Maintenance Due Date Last Done Comments Annual Wellness Exam 02/24/1985 Hepatitis B Vaccine (1 of 3 - 19+ 3-dose series) 02/24/2001 Cervical Cancer Screening 02/24/2003 Pap Smear 02/24/2003 HPV/Pap Cotest 02/25/2012 Breast Cancer Screening 02/24/2022 COVID-19 Vaccine ( - season) 2025 06/18/2021, 11/02/2020, 10/12/2020 Influenza Vaccine (#1) 2025 6, 03/20/2016, 05/16/2015, Additional history exists DTaP/TDaP/Td (4 - Td or Tdap) 08/07/2025 08/07/2015, 04/28/2011, 02/25/2010 Meningococcal B Vaccine Aged Out No l onger eligible based on patient's age to complete this topic Pneumococcal Vaccine 0-49 Aged Out No longer eligible based on patient's age to complete this topic Goals Goal Patient Goal Type Associated Problems Recent Progress Patient-Stated? Author Maintain a healthy diet, exercise regularly and maintain an ideal body weight General No Jasper Mars MA Procedures Procedure Name Priority Date/Time Associated Diagnosis Comments THYROID PEROXIDASE (TPO) ANTIBODY Routine 12/28/2024 2:38 PM EDT Family history of thyroid disease in sister TSH REFLEX TO FT4 Routine 12/28/2024 2:3 8 PM EDT Family history of thyroid disease in sister IRON+TIBC Routine 12/28/2024 2:38 PM EDT History of iron deficiency FERRITIN Routine 12/28/2024 2:38 PM EDT History of iron deficiency HEMOGLOBIN A1C Routine 12/28/2024 2:38 PM EDT Screening for diabetes mellitus (DM) LIPID SCREEN Routine 12/28/2024 2:38 PM EDT Screening for lipid disorders COMPREHENSIVE METABOLIC PANEL Routine 12/28/2024 2:38 PM EDT Preoperative clearance POCT EKG Routine 12/28/2024 2:16 PM EDT Preoperative clearance from Last 3 Months Results * (ABNORMAL) IRON+TIBC (12/28/2024 2:38 PM EDT) [facility] Iron 45 30 - 160 mcg/dL 12/28/2024 7:44 PM EDT [facility] [employer], [facility] Transferrin 258 200 - 360 mg/dL 12/28/2024 7:44 PM EDT [facility] [employer], [facility] Transferrin Saturation 12(L) 20 - 50 % 12/28/2024 7:44 PM EDT [facility] [employer], [facility] TIBC 361 250 - 400 mcg/dL 12/28/2024 7:44 PM EDT [facility] [employer], [facility] Blood VENOUS BLOOD / Unknown Venipuncture / Unknown 12/28/2024 2:38 PM EDT 12/28/2024 2:46 PM EDT Cira Rasheed DO CHEMISTRY ORDERABLES Final Result Performing Organization Address [facility]/ZIP Co de Phone Number [facility] [employer] , [place] [address] * (ABNORMAL) THYROID PEROXIDASE (TPO) ANTIBODY (12/28/2024 2:38 PM EDT) [facility] TPO Ab 11.86(H) <=5.59 IU/mL 12/28/2024 8:46 PM EDT [facility] [employer], [facility] Blood VENOUS BLOOD / Unknown Venipuncture / Unknown 12/28/2024 2:38 PM EDT 12/28/2024 2:46 PM EDT Cira Rasheed DO IMMUNOLOGY ORDERABLES Final Result Performing Organization Address City/[facility]/ZIP Co de Phone Number [facility] [address] [facility] , [place] [address] * TSH REFLEX TO FT4 (12/28/2024 2:38 PM EDT) [facility] TSH Reflex 2.500 0.270 - 4.200 mcIU/mL 12/28/2024 7:44 PM EDT [facility] [employer] [facility] Blood VENOUS BLOOD / Unknown Venipuncture / Unknown 12/28/2024 2:38 PM EDT 12/28/2024 2:46 PM EDT Narrative [facility] - 12/28/2024 7:44 PM EDT Ingestion of [place] doses of biotin (>5 mg/day) taken within 8 hours of drawing blood sample can interfere with this immunoassay test. Cira Rasheed DO CHEMISTRY ORDERABLES Final Result Performing Organization Address City/[facility]/ZIP Co de Phone Number [facility] [employer] [address] , [place] [address] * HEMOGLOBIN A1C (12/28/2024 2:38 PM EDT) Pathologist [facility] Hgb A1C 5.6 4.2 - 5.6 % 12/28/2024 8:49 PM EDT [facility] [employer] [facility] Est. Avg Glucose 114 mg/dL 12/28/2024 8:49 PM EDT [facility] [employer] [facility] Blood VENOUS BLOOD / Unknown Venipuncture / Unknown 12/28/2024 2:38 PM EDT 12/28/2024 2:46 PM EDT Narrative [facility] [employer] [facility] - 12/28/2024 8:49 PM EDT REFERENCE RANGE: Normal: 4.0-5.6% Pre-diabetes: 5.7-6.4% Provisional diagnosis of diabetes: >6.4% Hgb F>10% and anything which shortens red cell survival, such as hemolytic anemia, or unstable hemoglobin variants such as HbSS, HbSC, or HbCC, will lower the HbA1c value associated with a given level of glycemic control. Cira Rasheed DO CHEMISTRY ORDERABLES Final Result Performing Organization Address [facility]/ZIP Co de Phone Number [facility] [employer] [facility] [address] , [place] [address] * FERRITIN (12/28/2024 2:38 PM EDT) Ferritin 32 30 - 150 ng/mL 12/28/2024 7:43 PM EDT [facility] [employer] Comment:The lower threshold of 30 is not statistically defined, nor internally validated. The threshold has been updated to more closely reflect a physiologic basis. Skye Burns et al. Physiologically based serum ferritin thresholds for iron deficiency in children and non- women: a [place] National Health and Nutrition Examination Surveys (NHANES) serial cross-sectional study. Lancet Haematol 2021;8:e572-82. Blood VENOUS BLOOD / Unknown Venipuncture / Unknown 12/28/2024 2:38 PM EDT 12/28/2024 2:46 PM EDT Narrative [facility] [employer] - 12/28/2024 7:43 PM EDT Ingestion of [place] doses of biotin (>5 mg/day) taken within 8 hours of drawing blood sample can interfere with this immunoassay test. Cira Rasheed DO CHEMISTRY ORDERABLES Final Result [facility] [address] [facility] , [place] [address] * (ABNORMAL) LIPID SCREEN (12/28/2024 2:38 PM EDT) Pathologist [facility] Cholesterol 212(H) <200 mg/dL 12/28/2024 7:43 PM EDT [employer] Comment: < 200 Desirable 200 - 239 Borderline High >= 240 High Triglyceride 102 <150 mg/dL 12/28/2024 7:43 PM EDT [employer] Comment: < 150 Normal 150 - 199 Borderline High 200 - 499 High >= 500 Very High HDL 49 >=40 mg/dL 12/28/2024 7:43 PM EDT [employer] Comment: > 60 Optimal 40 - 60 Acceptable < 40 Low LDL Calculated 145(H) <100 mg/dL 12/28/2024 7:43 PM EDT [employer] Comment: < 100 Optimal 100 - 129 Near or above optimal 130 - 159 Borderline High 160 - 189 High >= 190 Very High The National Institutes of Health (NIH) equation is used for all lipid panels that report calculated LDL (LDL-C). Non-HDL-C Calculated 163(H) <=129 mg/dL 12/28/2024 7:43 PM EDT [facility] Comment: <130 Desirable 130-159 Above Desirable 160-189 Borderline High 190-219 High >= 220 Very High Fasting Specimen? No None 025 7:43 PM EDT [facility] Blood VENOUS BLOOD / Unknown Venipuncture / Unknown 12/28/2024 2:38 PM EDT 12/28/2024 2:46 PM EDT Cira Rasheed DO CHEMISTRY ORDERABLES Final Result [facility] [address] [facility] , [address] [place] [id number] * COMPREHENSIVE METABOLIC PANEL (12/28/2024 2:38 PM EDT) Sodium 139 136 - 145 mmol/L 12/28/2024 7:43 PM EDT [facility] Potassium 4.9 3.5 - 5.0 mmol/L 12/28/2024 7:43 PM EDT [facility] Chloride 105 98 - 107 mmol/L 12/28/2024 7:43 PM EDT [facility] Total CO2 24 22 - 29 mmol/L 12/28/2024 7:43 PM EDT [facility] Anion Gap 10 7 - 16 mmol/L 12/28/2024 7:43 PM EDT [facility] Calcium 10.2 8.6 - 10.4 mg/dL 12/28/2024 7:43 PM EDT [facility] Glucose Lvl 96 70 - 99 mg/dL 12/28/2024 7:43 PM EDT [facility] BUN 11 6 - 20 mg/dL 12/28/2024 7:43 PM EDT [facility] Creatinine 0.77 0.51 - 1.30 mg/dL 12/28/2024 7:43 PM EDT [facility] Albumin 4.3 3.5 - 5.2 gm/dL 12/28/2024 7:43 PM EDT [facility] Total Protein 7.2 6.4 - 8.3 gm/dL 12/28/2024 7:43 PM EDT [facility] Bili Total 0.2 0.2 - 1.3 mg/dL 12/28/2024 7:43 PM EDT [facility] ALT 19 <=41 U/L 12/28/2024 7:43 PM EDT [facility] AST 17 <=40 U/L 12/28/2024 7:43 PM EDT [facility] Alk Phos 114 36 - 123 U/L 12/28/2024 7:43 PM EDT [facility] eGFR (CKD-EPIcr 2020) 98 >=60 mL/min/1.7 3 m2 12/28/2024 7:43 PM EDT [facility] Comment:Estimated GFR was ca lculated using the CKD-EPIcr (2020) equation refit without race. The equation is recommended by the National Kidney Foundation - [place] [employer] of Nephrology Task Force. Blood VENOUS BLOOD / Unknown Venipuncture / Unknown 12/28/2024 2:38 PM EDT 12/28/2024 2:46 PM EDT Cira Rasheed DO CHEMISTRY ORDERABLES Final Result [facility], [facility] [address] [facility] , [place] [address] * POCT EKG (12/28/2024 2:16 PM EDT) 12/28/2024 2:16 PM EDT [facility] - 12/28/2024 2:16 PM EDT Rate, rhythm, axis, intervals wnl. No pattern of ischemia or injury. Cira Rasheed DO POINT OF CARE CARDIOL OGY Final Result SEP OFFICE from Last 3 Months Insurance [facility] [address] [facility] [address] [facility] [address] Care Teams Co Pilot Relationship Specialty Start Date End Date Cira Rasheed DO [facility] [address] [address] PCP - General Family Medicine 01/01/25
--- OUTSIDE RECORDS SUMMARY | 2025-03-21 14:31 | XMS_ITS | Encounter Summary ---
Author Organization [place] [address] Care Team Providers Care Mobile Disc Jockey Name Role Phone Cira Rasheed DO Primary Care Provide r Reason for Visit * Reason Onset Date Comments Appointment Needed 12/19/2024 New patient p re op ??? Encounter Details Date Type Department Care Team (Late st Contact Info) Description 12/19/2024 Telephone [facility] [address] [place] [address] Cira Rasheed, [address] [place] [address] Appointment Needed (New patient pre op ???) Social History Tobacco Use Types Packs/Day Years Used Date Smoking Tobacco: Never Comments Unknown Sex and Gender Information Value Date Recorded Sex Assigned at Not on file Legal Sex Female 3:02 PM EST Gender Identity Not on file Sexual Orientation Not on file documented as of this encounter Miscellaneous Notes * Telephone Encounter - Jasper Mars MA - 12/20/2024 6:02 PM EDT tried to call patient to inform no working number in chart * Telephone Encounter - Cira Rasheed DO - 12/20/2024 5:53 PM EDT Just keep preop physical on 12/28. * Telephone Encounter - Pauly Martinez - 12/19/2024 12:49 PM EDT Select the most appropriate reason for this telephone message: Appointment Needed Appointment Requested By: Patient Provider Preference: Dr Rasheed Type of Appt Needed: New Patient Detailed Reason for Appt: Can her new patient be done as a pre op she is having surgery on 01-02-25 Requested Timeframe: Other Has apt 12-28-24 Reason Scheduling Assistance is Needed: -other can new patient apt be completed for pre op physical Return Method of Communication: Phone Call Additional Information: N/A documented in this encounter Plan of Treatment Upcoming Encounters Date Type Department Care Team (Late st Contact Info) Description 05/07/2025 3:15 PM EST Office Visit [facility] [address] [place] [address] Roxie Iyer, COMPUTER SYSTEMS ADMINISTRATOR [address] [place] [address] documented as of this encounter Goals Goal Patient Goal Type Associated Problems Recent Progress Patient-Stated? Author Maintain a healthy diet, exercise regularly and maintain an ideal body weight General No Jasper Mars MA documented as of this encounter Visit Diagnoses Not on filedocumented in this encounter Care Teams Mobile Disc Jockey Relationship Specialty Start Date End Date Cira Rasheed DO [address] [place] [phone] PCP - General Family Medicine 01/01/25 documented as of this encounter
--- OUTSIDE RECORDS SUMMARY | 2025-03-21 14:31 | XMS_ITS | Clinical Summary ---
Author Organization [facility] Address [address] [place] [address] Care Team Providers Care Hot Oiler Name Role Phone Pierce Iban MALACHI Primary Care Provider [phone] Allergies No known active allergies Medications DULoxetine (CYMBALTA) 60 MG capsule Take 1 capsule by mouth 2 (Two) Times a Day. 04/06/2024 Active Concerta 54 MG CR tablet Take 1 tablet by mouth Daily Active gabapentin (NEURONTIN) 300 MG capsule Take 1 capsule by mouth 4 (Four) Times a Day. 12/24/2023 Active mirtazapine (REMERON) 15 MG tablet Take 1 tablet by mouth Daily. Active cetirizine (zyrTEC) 10 MG tablet 1 tablet. 12/28/2023 Active tiZANidine (ZANAFLEX) 4 MG tablet Take 2 tablets by mouth Every Night. 12/23/2023 Active Active Problems Problem Noted Date Diagnosed Date Hyperthyroidism 05/04/2024 Overview (05/04/2024): She went to the dr with complaints of weight gain/ fatigue. Labs showed iron deficiency but also showed very low tsh level. While she has strong family history of thyroid disase she herself has not had prior hx of thyroid disease. Ultrasound showed tiny nodule in each lobe. Bron and raise in [place]. Started iodine drops a couple of months ago. Strong family histroy of thyroid disease No radiation exposure Assessment & Plan (05/04/2024 4:44 PM EST): Las and hx consistent with hyperthyroidism We need additional testing done with her off of biotin for 3 days- ordered. I anticipate treating with methimazole if graves disease is confirmed Family History Medical History Relation Name Comments Cancer Maternal Grandmother Raegan Brain C ancer Hypertension Mother Randa Thyroid disease Mother Randa Hypothyroidi sm Thyroid disease Sister 1 Vickie Graves Disea se Thyroid disease Sister 2 Amy Hyperthyroid ism Relation Name Status Comments Maternal Grandmother Raegan Mother Randa Sister 1 Vickie Sister 2 Amy Social History Tobacco Use Types Packs/Day Years Used Date Smoking Tobacco: Never Tobacco Cessation:Counseling Given: Not Answered Alcohol Use Standard Drinks/Week Comments Never 0 (1 standard drink = 0.6 oz pur e alcohol) Comments Unknown Sex and Gender Information Value Date Recorded Sex Assigned at Not on file Legal Sex Female 3:48 PM EDT Gender Identity Not on file Sexual Orientation Not on file Last Filed Vital Signs Vital Sign Reading Time Taken Comments Blood Pressure 142/84 05/04/2024 12:45 PM EST Pulse 97 05/04/2024 12:45 PM EST Temperature - - Respiratory Rate - - Oxygen Saturation 100% 05/04/2024 12:45 PM EST Inhaled Oxygen Concentration - - Weight 124 kg (274 lb) 05/04/2024 12:45 PM EST Height 175.3 cm (5' 9 ) 05/04/2024 12:45 PM EST Body Mass Index 40.46 05/04/2024 12:45 PM EST Plan of Treatment Health Maintenance Due Date Last Done Comments Annual Gynecologic Pelvic and Breast Exam 02/24/1982 PAP SMEAR 02/24/2003 MAMMOGRAM 02/24/2022 ANNUAL PHYSICAL 05/04/2024 INFLUENZA VACCINE 01/26/2025 04/28/2016, , 05/16/2015, Additional history exists TDAP/TD VACCINES (4 - Td or Tdap) 08/07/2025 08/07/2015, 04/28/2011, 02/25/2010 HEPATITIS C SCREENING Completed 11/21/2021 Pneumococcal Vaccine 0-49 Aged Out No longer eligible based on patient's age to complete this topic Care Teams Hot Oiler Relationship Specialty Start Date End Date Iban Pelayo APRN [phone] [phone] PCP - General Family Medicine 06/03/23
--- NOTE | 2025-03-21 14:32 | ECG_ITS ---
APPROVED REPORT Exam: Resting ECG HR:97 bpm ECG Measurements Heart Rate 97 AXES FL 162 P 39 QRSd 90 QRS 36 QT 323 T 26 QTc 377 Conclusion SINUS RHYTHM NORMAL ECG UNCONFIRMED REPORT Normal sinus rhythm. No ST elevation or depression. QTc normal at 377 Electronically signed by : ROSALIE FLORES, 03/21/2025 15:22:51
--- OUTSIDE RECORDS SUMMARY | 2025-03-21 14:32 | XMS_ITS ---
Author Name Interface, [id number] lity Address [address] Oncology an d Hematology Address [address] [place] [address] Allergies and Adverse Reactions Medication/Group Name Reaction Severity Date gluten 09/26/2024 lactose 09/26/2024 Plan Date Type Value 11/07/2024 APPOINTMENT FOLLOW UP 09/26/2024 APPOINTMENT Lab 09/26/2024 APPOINTMENT NEW PATIENT 09/26/2024 LABORDER Ferritin 09/26/2024 LABORDER Iron profile 09/26/2024 LABORDER CMP 09/26/2024 LABORDER CBC w/ auto diff 09/26/2024 LABORDER Vitamin B12 Reason for Visit FOLLOW UP Encounters Date Name 09/26/2024 Anemia 09/26/2024 Cannot tolerate oral iron 09/26/2024 Coagulation/bleeding tests abnormal (finding) 09/26/2024 Ecchymosis (finding) 09/26/2024 Iron deficiency Diagnostic Results Date Type Test Units Lower Limit Upper Limit Result Flag Comments Status Ordered By Specimen Source Lab Address 09/26 Vitam in B12 pg/mL 232.0 1245.0 1798 High FINAL [facility] [phone], [address] [facility] [id number] 9 Terry Manrique i, PhD 09/26 WBC x10E3/ uL 3.4 10.8 5.7 FINAL [facility] , [address] [facility] [id number] 9 Terry Manrique i, PhD 09/26 RBC x10E6/ uL 3.77 5.28 5.12 FINAL [facility] [phone], [address] [facility] [id number] 9 Terry Manrique i, PhD 09/26 HGB g/dL 11.1 15.9 14.6 FINAL [place] [facility] , [address] [facility] [id number] 9 Terry Manrique i, PhD 09/26 HCT % 34.0 46.6 44.4 FINAL [place] [facility] , [address] [facility] [id number] 9 Terry Manrique i, PhD 09/26 MCV fL 79.0 97.0 87 [facility] , [address] [facility] [id number] 9 Terry Manrique i, PhD 09/26 MCH pg 26.6 33.0 28.5 FINAL [place] [facility] , [address] [facility] [id number] 9 Terry Manrique i PhD 09/26 MCHC g/dL 31.5 35.7 32.9 [facility]AL [facility] , [address] [facility] [id number] 9 Terry Manrique i, PhD 09/26 RDW % 11.7 15.4 13.6 [facility]AL [facility] , [address] [facility] [id number] 9 Terry Manrique i, PhD 09/26 PLT x10E3/ uL 150.0 450.0 256 FINAL [place] , [address] [facility] [id number] 9 Terry Manrique i, PhD 09/26 Josue % % 65 FINAL [place] [facility] , [address] [facility] [id number] 9 Terry Manrique i, PhD 09/26 LY % % 25 [facility]AL [place] , [address] [facility] [id number] 9 Terry Manrique i, PhD 09/26 MO % % 6 FINAL [place] [facility] [phone], [address] [facility] [id number] 9 Terry Manrique i, PhD 09/26 EO % % 3 FINAL [place] [facility] , [address] [facility] [id number] 9 Terry Manrique i, PhD 09/26 BA % % 1 FINAL [place] [facility] [phone], [address] [facility] [id number] 9 Terry Manrique i, PhD 09/26 Immat ure cells No result FINAL [place] [facility] [phone], [address] [facility] [id number] 9 Terry Manrique i, PhD 09/26 Josue # (ANC) x10E3/ uL 1.4 7.0 3.7 FINAL [place] [facility] [phone], [address] [facility] [id number] 9 Terry Manrique i, PhD 09/26 LY # x10E3/ uL 0.7 3.1 1.4 FINAL [place] [facility] [phone], [address] [facility] [id number] 9 Terry Manrique i, PhD 09/26 MO # x10E3/ uL 0.1 0.9 0.4 FINAL [place] [facility] [phone], [address] [facility] [id number] 9 Terry Manrique i, PhD 09/26 EO # x10E3/ uL 0.0 0.4 0.2 FINAL [place] [facility] [phone], [address] [facility] [id number] 9 Terry Manrique i, PhD 09/26 BA # x10E3/ uL 0.0 0.2 0.1 FINAL [place] [facility] [phone], [address] [facility] [id number] 9 Terry Manrique i, PhD 09/26 IG % % 0 FINAL [place] [facility] , [address] [facility] [id number] 9 Terry Manrique i, PhD 09/26 IG # x10E3/ uL 0.0 0.1 0.0 FINAL [place] [facility] , [address] [facility] [id number] 9 Terry Manrique i, PhD 09/26 NRBC, % 0 FINAL [place] [facility] , [address] [facility] [id number] 9 Terry Manrique i, PhD 09/26 CBC Comme nts No result FINAL [place] [facility] , [address] [facility] [id number] 9 Terry Manrique i, PhD 09/26 PDF Repor t1 See d FINAL [place] [facility] , [address] [facility] [id number] 9 Terry Manrique i, PhD 09/26 Iron profi le Iron ug/dL 27.0 159.0 36 FINAL [place] [facility] , [address] [facility] [id number] 9 Terry Manrique i, PhD 09/26 Iron profi le Iron, % satur ation % 15.0 55.0 11 Low FINAL [place] [facility] , [address] [facility] [id number] 9 Terry Manrique i, PhD 09/26 Iron profi le TIBC ug/dL 250.0 450.0 326 FINAL [place] [facility] , [address] [facility] [id number] 9 Terry Manrique i, PhD 09/26 Iron profi le Unbou nd iron capac ity ug/dL 131.0 425.0 290 FINAL [place] [facility] , [address] [facility] [id number] 9 Terry Manrique i, PhD 09/26 Brea tin panel Brea tin ng/mL 15.0 150.0 45 FINAL [place] [facility] , [address] [facility] [id number] 9 Terry Manrique i, PhD 09/26 Gluco se mg/dL 70.0 99.0 101 High FINAL [place] [facility] , [address] [facility] [id number] 9 Terry Manrique i, PhD 09/26 BUN mg/dL 6.0 24.0 9 FINAL [place] [facility] , [address] [facility] [id number] 9 Terry Manrique i, PhD 09/26 Creat inine mg/dL 0.57 1.0 0.91 FINAL [place] [facility] , [address] [facility] [id number] 9 Terry Manrique i, PhD 09/26 eGFR mL/min /1.73 81 FINAL [facility] , [address] [facility] [id number] 9 Terry Manrique i PhD 09/26 BUN/C reati nine ratio 9.0 23.0 10 FINAL [facility] , [address] [facility] [id number] 9 Terry Manrique i, PhD 09/26 Sodiu m mmol/L 134.0 144.0 142 FINAL [facility] , [address] [facility] [id number] 9 Terry Manrique i, PhD 09/26 Potas sium mmol/L 3.5 5.2 4.4 FINAL [facility] , [address] [facility] [id number] 9 Terry Manrique i, PhD 09/26 Chlor roseline mmol/L 96.0 106.0 105 FINAL [facility] , [address] [facility] [id number] 9 Terry Manrique i PhD 09/26 CO2 mmol/L 20.0 29.0 23 FINAL [place] [facility] [phone], [address] [facility] [id number] 9 Terry Manrique i PhD 09/26 Calci um mg/dL 8.7 10.2 9.7 FINAL [place] [facility] , [address] [facility] [id number] 9 Terry Manrique i PhD 09/26 Total prote in g/dL 6.0 8.5 6.7 FINAL [place] [facility] , [address] [facility] [id number] 9 Terry Manrique i PhD 09/26 Album in g/dL 3.9 4.9 4.3 FINAL [place] [facility] , [address] [facility] [id number] 9 Terry Manrique i PhD 09/26 Globu ceci g/dL 1.5 4.5 2.4 FINAL [place] [facility] , [address] [facility] [id number] 9 Terry Manrique i PhD 09/26 Bilir ubin, total mg/dL 0.0 1.2 0.2 FINAL [place] [facility] , [address] [facility] [id number] 9 Terry Manrique i PhD 09/26 Alkal ine phosp hatas e IU/L 44.0 121.0 127 High FINAL [place] [facility] [phone], [address] [facility] [id number] 9 Terry Manrique i PhD 09/26 AST/S GOT IU/L 0.0 40.0 24 FINAL [place] [facility] , [address] [facility] [id number] 9 Terry Manrique i PhD 09/26 ALT/S GPT IU/L 0.0 32.0 22 FINAL [place] [facility] , [address] [facility] [id number] 9 Terry Manrique i, PhD Medications Date Name Route Dose Frequency Instructions Start Date End Date Status Fill Status Indication 09/26 Duloxetine Oral Delayed Release active 09/26 Gabapentin Oral active 09/26 Methylphen idate Oral active 09/26 Tizanidine Oral active 09/26 Cetirizine Oral active 09/26 Mirtazapin e Oral active Problems Diagnosis Status Date of Diagnosis Resolution Date Advance directive informatio n unavailable (finding) Active Iron deficiency Active Coagulation/bleeding tests a bnormal (finding) Active Anemia Active Cannot tolerate oral iron Active Ecchymosis (finding) Active Vital Signs Date Type Value 09/26/2024 Height 70.00 09/26/2024 Heart Beat 97.00 09/26/2024 Oxygen Saturation 97.00 09/26/2024 BSA 2.41 09/26/2024 Pain Scale 6.00 09/26/2024 Weight 281.40 09/26/2024 BMI 40.38 09/26/2024 Intravascular Systolic 134 09/26/2024 Intravascular Diastolic 81 Notes Section * New Patient Clinic Note Patient:??FAY BLACKMON Date:??09/26/2024 :??02/24/1980 Attending Physician:??Wilton Courtney Diagnosis * Coagulation/bleeding tests abnormal (finding) * Iron deficiency Chief Complaint Referral for iron deficiency HPI The patient is a 44 year old female who was referred for treatment of iron deficiency.??She first had iron deficiency 2 years ago that she attributes to a combination of menstrual bleeding and malabsorption. She cannot tolerate oral iron due to nausea and vomiting. She has also tried liquid iron and cannot tolerate it. She denies overt menorrhagia. She denies taking antacids. She denies past abdominal surgeries and she has not had children. She is gluten sensitive.??She reports fatigue that is chronic and moderate to severe at times.??She reports also being told that her iron is too low for knee replacement. She denies BRBPR, melena or hematuria. Her appetite is normal and her diet is normal.?? Her activity level is decreased due to fatigue. She denies fevers, chills, headache, dizziness,double vision, impaired vision, chest pain, palpitations, cough, [...] no chills, no night sweats, energy level good.?? Eyes: No diplopia, no transient or permanent loss of vision, no scotomata.?? ENT/Mouth: No tinnitus, no epistaxis, no hoarseness, no oral ulcers, no gingival bleeding, no sore throat, ??no mouth pain, no sinus pain, no dysphagia.?? Cardiovascular: No chest pain, no palpitations, no syncope, no upper extremity edema, no lower extremity edema, no calf discomfort.?? Respiratory: No Cough, no hemoptysis, ??no wheezing.?? Gastrointestinal: No abdominal pain, no nausea, no vomiting, no constipation, no BRBPR, no jaundice, no abnormal cramping, no hematemesis, no diarrhea, no melena, no dyspepsia, no dysphagia.?? Musculoskeletal: No muscle pain, no swollen joints redness, no bone pain, no spine tenderness.?? Skin: No rash, no nodules, no pruritus, no lesions.?? Neurological: No Confusion, no seizures, no syncope, no tremor, no speech change, no headache,??no weakness, no sensory changes.?? Psychiatric: No depression, no anxiety, concentration normal.?? Endocrine: No polyuria, no polydipsia, no thyroid disease symptoms, no hot flashes.?? Hematologic: No epistaxis, no bleeding, no petechiae, no ecchymosis.?? Lymphatic: No lymphadenopathy, no lymphedema.?? Allergy/Immunologic: No eczema, no frequent mucous membrane infections, no frequent respiratory infections,??no frequent skin infection. ?? Allergies/Adverse Events ? Medications * Cetirizine Oral [...] and oriented, no apparent distress. HEAD: Normocephalic, Atraumatic.?? EYES: PERRLA, EOMI, Sclerae clear.?? MOUTH/THROAT: No erythema, exudate or signs of infection.?? NECK: Normal in appearance, nontender, supple, no masses.?? LUNGS: Clear to auscultation bilaterally, no wheezes, rhonchi or rales, Breath sounds are equal bilaterally.?? CV: RRR, Normal S1 and S2, No S2 or S4, No murmur/rub/gallop, No Increased JVP visible. ABDOMEN: Soft, nontender to palpitation, no guarding or rebound, no hepatomegaly, no splenomegaly, no masses.?? LYMPH NODES: There is no cervical, supraclavicular, infraclavicular or axillary adenopathy palpable.?? EXT: No Clubbing, cyanosis or edema.?? MUSCULOSKELETAL: Normal Inspection, no muscle tenderness.?? NEURO: Motor is normal, sensation grossly intact, CN II-XII intact SKIN: No lesions. Skin is warm and dry.?? * gluten * lactose Assessment & Plan Iron deficiency she reports that she cannot tolerate oral iron due to severe gastrointestinal distress.?? In addition, she is gluten sensitive and has a component of malabsorption.?? I will check a CBC, CMP, iron profile, ferritin and??B12 level.?? If iron deficiency is confirmed, we will make plans to give intravenous iron.?? I discussed giving iron sucrose and the potential side effects.?? She states that she understands and that she accepts them.?? She and her understand and agree with our plan.?? They were both given the opportunity to ask questions and all of their questions were answered. Cannot tolerate oral iron As above Plan: CBC, CMP, iron profile, ferritin and B12 level ordered IV iron if iron deficiency confirmed Follow-up telephonically Follow-up in 6 weeks Thank you for allowing me to participate in FAY BLACKMON??'s medical care. It is of course a privilege and I will certainly keep you informed of the progress of this ongoing evaluation. Respectfully, Sunny Valdez M.D. [facility] Oncology and Hematology Problem List * Coagulation/bleeding [...]
--- NOTE | 2025-03-21 14:34 | [facility].EDCP ---
Discharge Plan Disposition Patient Disposition: Home, Self-Care Condition: Good Prescriptions Prescriptions: New diltiazem HCl 60 mg capsule,extended release 12 hr 60 mg PO BID Qty: 30 1RF No Action lidocaine (PF) 20 mg/mL (2 %) solution 20 mg IJ ONCE Qty: 1 0RF celecoxib 200 mg capsule 200 mg PO DAILY Patient Comments: TAKE 1 CAPSULE BY MOUTH ONCE A DAY lamotrigine 25 mg tablet 25 mg PO DAILY Patient Comments: TAKE 1 TABLET BY MOUTH ONCE A DAY mirtazapine 15 mg tablet 15 mg PO DAILY Patient Comments: TAKE 1 TABLET BY MOUTH ONCE A DAY tizanidine 4 mg tablet 4 mg PO Q8H PRN (Reason: muscle spasticity) Qty: 90 2RF Xiidra 5 % dropperette 1 drp Eye-Both QAM AND QPM Qty: 60 2RF cetirizine 10 mg tablet 10 mg PO DAILY PRN (Reason: allergy symptoms) Qty: 30 5RF methylphenidate HCl [Concerta] 54 mg tablet extended release 24hr 54 mg PO DAILY duloxetine 60 mg capsule,delayed release(DR/EC) 120 mg PO DAILY gabapentin 300 mg capsule 300 mg PO QID Referrals Follow up/Referrals: Herman Kimble MD [Staff Physician, Cardiology] - 03/22/25 9:00 am ProviderHarry MD [Referring, Medical] - See instructions Activity Restrictions/Add. Instructions Additional Instructions/Restrictions: driver supervisor the medication tomorrow and started in the morning or after your appointment with Dr. Kimble. Come tomorrow to the cardiology clinic at 9am. If you have return of your tachycardia you can try vagal maneuvers at home such as placing ice on your face, blowing into a syringe and lifting your legs. If you are unable to resolve your symptoms at home return to the emergency department. Clinical Impressions Clinical Impression: Supraventricular tachycardia Instructions Patient Instructions: Cardiac Arrhythmia (Alternative Therapy) Print Language Print Language: Sinhala Discharge ED Provider: Rafi Mahoney HPI <Rafi Mahoney MD - Last Filed: 03/21/25 15:17> General Chief Complaint: Arrhythmia/Palpitations Stated Complaint: elevated HR Time Seen by Provider: 03/21/25 14:04 Mode of Arrival: EMS Source of Information: Patient and EMS Limitations: No Limitations History of Present Illness HPI narrative: Aracelis Adler is a 45y female with a history of anxiety, depression, obesity who presents to the emergency department via EMS for elevated heart rate and dizziness. Per patient, ever since her childhood she has had issues where she will feel her heart racing but was never taken to the doctor. She states that she would have to deal with it on her own . She states that recently she was followed by cardiology to get cleared for a upper endoscopy and was told that her workup was unremarkable. She states that today, she woke up with dizziness and then at around 11, felt that her heart was racing. She does report some chest pain and shortness of breath as well. She felt like it was her anxiety but all of the typical measures that she does to control her anxiety did not work. When EMS arrived, her heart rate was over 200. They attempted adenosine 6 mg followed by adenosine 12 mg without response each time. They noted that she was hypotensive and did electrical cardioverted twice, once at 100 J and again at 120 J. They state that after the second shock at 220 J, she temporarily converted out of SVT but then her heart rate became elevated again. Her blood pressure was normotensive just prior to arrival. Patient was given 2.5 mg of Versed. Patient does note that she had knee surgery over a month ago. Related Data Home Medications ?Medication ?Instructions ?Recorded ?Confirmed methylphenidate HCl 54 mg 54 mg PO DAILY 08/09/23 03/22/25 tablet,extended release 24 hr (Concerta) duloxetine 60 mg capsule,delayed 120 mg PO DAILY 09/03/23 03/22/25 release gabapentin 300 mg capsule 300 mg PO QID 12/24/23 03/22/25 celecoxib 200 mg capsule 200 mg PO DAILY 03/22/25 03/22/25 lamotrigine 25 mg tablet 25 mg PO DAILY 03/22/25 03/22/25 mirtazapine 15 mg tablet 15 mg PO DAILY 03/22/25 03/22/25 Previous Rx's ?Medication ?Instructions ?Recorded lifitegrast 5 % eye drops in a 1 drp Eye-Both QAM AND QPM Chronic 08/22/24 dropperette (Xiidra) dry eyes #60 ea tizanidine 4 mg tablet 4 mg PO Q8H PRN muscle spasticity 08/22/24 #90 tabs cetirizine 10 mg tablet 10 mg PO DAILY PRN allergy 08/25/24 symptoms #30 tabs diltiazem HCl 60 mg 60 mg PO BID #30 caps 03/21/25 capsule,extended release 12 hr Allergies Allergy/AdvReac Type Severity Reaction Status Date / Time gluten AdvReac Intermediate Abdominal Verified 03/22/25 08:56 Pain lactose AdvReac Intermediate Abdominal Verified 03/22/25 08:56 Pain PFSH <Rafi Mahoney MD - Last Filed: 03/21/25 15:17> PFSH Disclaimer: The information contained in this section may have been updated after the patient was seen, as this information can be updated by other users. Medical History (Updated 03/22/25 @ 09:11 by Mariia Rodríguez RN) Near syncope Abnormal ECG Pre-op testing Abdominal bloating Concussion Seizure Anemia Ulcer Heart palpitations Herniated disc Normal colonoscopy Arthritis Vertigo Osteoarthritis PTSD (post-traumatic stress disorder) Depression Anxiety Surgical History History of colonoscopy History of nasal septoplasty Family History Other Cancer Cutaneous lupus erythematosus Heart attack Hypertension Thyroid disorder Social History Smoking Status: Never smoker alcohol intake: never substance use type: denies use current occupational status: employed Travel in the last 8 weeks?: None household members: significant other housing: house marital status: single number of children: 0 Other Medical History Have you received the Flu Vaccine for this season: No Have you received the Pneumonia Vaccine: No <Rafi Mahoney MD - Last Filed: 03/21/25 15:17> ROS Obtained: Yes Systems reviewed as appropriate & no additional complaints except as documented Physical Exam <Rafi Mahoney MD - Last Filed: 03/21/25 15:17> General General appearance: alert, in no apparent distress, anxious and obese Head Head exam: atraumatic Eye Eye exam: Present normal appearance ENT ENT exam: Present normal external ear exam Neck Neck exam: Present full ROM Chest Chest inspection: Present symmetric chest wall rise Respiratory Respiratory exam: Present normal lung sounds bilaterally; Absent respiratory distress or wheezes Cardiovascular Cardiovascular exam: Present regular rate and normal rhythm Abdominal Exam Abdominal exam: Present soft; Absent tenderness or guarding Extremities Exam Extremities exam: Present normal inspection Back Exam Back exam: Present normal inspection Neurological Exam Neurological exam: Present alert and oriented X3 Psychiatric Psychiatric exam: Present normal affect Skin Skin exam: Present warm and dry HEART Score <Rafi Mahoney MD - Last Filed: 03/21/25 15:17> HEART Score HEART Score assessment performed?: Yes History (anamnesis): Slightly suspicious ECG: Normal Age: <45 years Risk factors: 1-2 risk factors Troponin: </= normal limit HEART Score: 1 <Kat Chi DO - Last Filed: 03/22/25 23:52> HEART Score HEART Score: 1 Critical Care <Rafi Mahoney MD - Last Filed: 03/21/25 15:17> Critical Care Time Critical Care Time: Yes Attestation: On 03/21/25, the high probability of a clinically significant, sudden or life threatening deterioration of the following system(s) required my full and direct attention, intervention and personal management. The time I documented below is in addition to time spent performing reported procedures but includes the following listed in this critical care notation. Total Time Total Critical Care Time: 35 Medical Decision Making <Rafi Mahoney MD - Last Filed: 03/21/25 15:17> Jarek Inquiry Pt receiving controlled substance: No Vital Signs Vital Signs: 03/21/25 14:06 03/21/25 14:14 03/21/25 14:16 Temperature Temperature Source Pulse Rate 135 H 93 H 93 H Pulse Rate [Apical] Respiratory Rate 29 H 20 21 Blood Pressure 116/82 103/76 L 117/98 H Blood Pressure [Right Arm] Blood Pressure Mean 85 85 104 Blood Pressure Mean [Right Arm] Blood Pressure Source Blood Pressure Source [Right Arm] Blood Pressure Position Blood Pressure Position [Right Arm] 02 Sat by Pulse Oximetry 93 L 100 98 Oxygen Delivery Method 03/21/25 14:21 03/21/25 14:23 03/21/25 14:30 Temperature 98 F Temperature Source Oral Pulse Rate 100 H 104 H Pulse Rate [Apical] 223 H Respiratory Rate 11 L 20 22 Blood Pressure 102/83 L 119/75 Blood Pressure [Right Arm] 116/82 Blood Pressure Mean 89 84 Blood Pressure Mean [Right Arm] 93 Blood Pressure Source Blood Pressure Source [Right Arm] Automatic Cuff Blood Pressure Position Blood Pressure Position [Right Arm] Sitting 02 Sat by Pulse Oximetry 100 97 95 Oxygen Delivery Method Room Air 03/21/25 14:31 03/21/25 15:00 03/21/25 15:30 Temperature Temperature Source Pulse Rate 99 H 100 H 100 H Pulse Rate [Apical] Respiratory Rate 14 19 25 H Blood Pressure 125/85 130/79 135/77 Blood Pressure [Right Arm] Blood Pressure Mean 94 91 93 Blood Pressure Mean [Right Arm] Blood Pressure Source Blood Pressure Source [Right Arm] Blood Pressure Position Blood Pressure Position [Right Arm] 02 Sat by Pulse Oximetry 100 100 100 Oxygen Delivery Method 03/21/25 16:00 03/21/25 16:30 03/21/25 18:17 Temperature 98.0 F Temperature Source Oral Pulse Rate 99 H 101 H 102 H Pulse Rate [Apical] Respiratory Rate 9 L 18 18 Blood Pressure 127/82 124/77 128/76 Blood Pressure [Right Arm] Blood Pressure Mean 91 Blood Pressure Mean [Right Arm] Blood Pressure Source Automatic Cuff Blood Pressure Source [Right Arm] Blood Pressure Position Sitting Blood Pressure Position [Right Arm] 02 Sat by Pulse Oximetry 100 99 Oxygen Delivery Method Room Air Room Air Lab Data Labs: Lab Results 03/21/25 14:05: WBC 7.1, RBC 4.53, Hgb 12.8, Hct 37.8, MCV 83.4, MCH 28.3, MCHC 33.9, RDW 14.4, Plt Count 256, MPV 10.4, Neut % (Auto) 60.5, Lymph % (Auto) 30.3, Heard % (Auto) 5.1, Eos % (Auto) 3.4, Baso % (Auto) 0.6, Neut # (Auto) 4.3, Lymph # (Auto) 2.1, Heard # (Auto) 0.4, Eos # (Auto) 0.2, Baso # (Auto) 0.0, Sodium 139, Potassium 3.9, Chloride 110 H, Carbon Dioxide 21 L, Anion Gap 11.9, BUN 14, Creatinine 0.70, Estimated GFR 91, Est GFR ( Amer) 111, Glucose 125 H, Calcium 9.4, Magnesium 1.7, Total Bilirubin 0.5, AST 27, ALT 23, Alkaline Phosphatase 85, Troponin I < 0.01, NT-Pro-B Natriuret Pep 115, Total Protein 6.0 L, Albumin 3.9, Globulin 2.1, Albumin/Globulin Ratio 1.9 H, TSH < 0.02 L, Free T4 1.09, HCV Ab KATY w/Rflx PCR Qn Negative, HIV Ag/Ab Combo Qual Negative 03/21/25 17:00: Troponin I 0.01 03/21/25 14:05 03/21/25 14:05 Response Orders (Tests/Meds): ED MEDICATIONS Discontinued Medications Generic Name Dose Route Start Last Admin Trade Name Wilfredoq PRN Reason Stop Dose Admin Diltiazem HCl 20 mg 03/21/25 14:19 03/21/25 14:19 Diltiazem 25mg/5ml Vial IV 03/21/25 14:20 20 mg ONCE ONE Administration Diltiazem HCl 60 mg 03/21/25 17:59 03/21/25 18:08 Diltiazem 30mg Tablet PO 03/21/25 18:00 60 mg ONCE ONE Administration ORDERS Category Date Time Status CXR --portable [XR chest portable] Stat Exams 03/21/25 14:16 Completed BNP [NT Pro Brain Natriuretic Pep.] Stat Lab 03/21/25 14:05 Completed CBC w/Auto Diff [Complete Blood Count Auto Diff] Stat Lab 03/21/25 14:05 Completed CMP [Comprehensive Metabolic Panel] Stat Lab 03/21/25 14:05 Completed Free T4 (Free Thyroxine) Stat Lab 03/21/25 14:05 Completed HIV Combo Routine Lab 03/21/25 14:05 Completed Hepatitis C Ab Qual. W/ RFX Routine Lab 03/21/25 14:05 Completed Magnesium Stat Lab 03/21/25 14:05 Completed TSH [Thyroid Stimulating Hormone] Stat Lab 03/21/25 14:05 Completed Troponin I Q3H Lab 03/21/25 17:00 Completed Troponin I Stat Lab 03/21/25 14:05 Completed ECG holter initial pfn Stat Y 03/21/25 17:59 Completed ECG Data Tracing #1: Attestation: I reviewed this ECG and interpreted as documented below: ECG Narrative: With ventricular rate of 232 bpm. Rhythm is regular. This is consistent with supraventricular tachycardia narrow complex tachycardia Tracing #2: Attestation: I reviewed this ECG and interpreted as documented below: ECG Narrative: Post diltiazem and vagal maneuvers. Normal sinus rhythm. No ST elevation or depression. OH interval normal at 162. QTc normal at 377 MDM Narrative Medical Decision Narrative: Aracelis Adler is a 45y female with a history of anxiety, depression, obesity who presents to the emergency department via EMS for elevated heart rate and dizziness. Per patient, ever since her childhood she has had issues where she will feel her heart racing but was never taken to the doctor. She states that she would have to deal with it on her own . She states that recently she was followed by cardiology to get cleared for a upper endoscopy and was told that her workup was unremarkable. She states that today, she woke up with dizziness and then at around 11, felt that her heart was racing. She does report some chest pain and shortness of breath as well. She felt like it was her anxiety but all of the typical measures that she does to control her anxiety did not work. When EMS arrived, her heart rate was over 200. They attempted adenosine 6 mg followed by adenosine 12 mg without response each time. They noted that she was hypotensive and did electrical cardioverted twice, once at 100 J and again at 120 J. They state that after the second shock at 220 J, she temporarily converted out of SVT but then her heart rate became elevated again. Her blood pressure was normotensive just prior to arrival. Patient was given 2.5 mg of Versed. Patient does note that she had knee surgery over a month ago. On arrival, patient is noted to be significantly tachycardic with heart rate of 232 bpm. Blood pressure is stable. Patient was immediately placed on defibrillator pads and was moved over to hospital stretcher from EMS. Patient is alert, answering questions appropriately. She complains of dizziness and some mild chest pain. She does feel as if her heart is racing. Cardiopulmonary exam reveals no wheezing, rales or rhonchi. She is tachycardic with no murmurs. Regular rhythm. She does appear pale. Initial twelve-lead EKG was obtained that showed narrow complex tachycardia with a regular rhythm consistent with supraventricular tachycardia. Given patient's reassuring blood pressure, will attempt vagal maneuvers at this time. Patient blew into a 10 cc syringe and started she could and we laid the head of the bed back and lifted her legs up. After sitting the patient up, she converted to normal sinus rhythm, however, after approximately a minute, she converted back into SVT. Another attempt was made with the same vagal maneuver. She temporarily converted to normal sinus rhythm but then converted back to normal sinus rhythm. Will obtain cardiac workup including troponin, BNP, CBC with differential, CMP, magnesium level, TSH/free T4 chest x-ray. Patient's workup at this time shows no leukocytosis, no anemia, platelets within normal limits. Electrolytes grossly unremarkable nonactionable. Glucose normal at 125. Bicarb mildly low at 21. Liver enzymes within normal limits. Initial opponent less than 0.01. BNP normal at 115. At this time, the remainder of patient's laboratory workup is pending. Patient's chest x-ray is pending. I did discuss the patient's case with Yulisa Guevara APRN with the cardiology clinic. They recommended that if patient is getting discharged to place the patient on event monitor and have her follow-up in cardiology clinic tomorrow at 9 AM. Recommended starting either oral diltiazem or metoprolol. However, if determined patient needs admission or patient uncomfortable going home, admit the patient for overnight monitoring and echocardiogram in the morning. At this time, patient's ultimate disposition is pending completion of her workup and continue cardiac monitoring for recurrence of SVT. <Kat Chi, DO - Last Filed: 03/22/25 23:52> Medical Records Medical records reviewed: Yes I reviewed the patient's medical records. Vital Signs Vital Signs: 03/21/25 14:06 03/21/25 14:14 03/21/25 14:16 Temperature Temperature Source Pulse Rate 135 H 93 H 93 H Pulse Rate [Apical] Respiratory Rate 29 H 20 21 Blood Pressure 116/82 103/76 L 117/98 H Blood Pressure [Right Arm] Blood Pressure Mean 85 85 104 Blood Pressure Mean [Right Arm] Blood Pressure Source Blood Pressure Source [Right Arm] Blood Pressure Position Blood Pressure Position [Right Arm] 02 Sat by Pulse Oximetry 93 L 100 98 Oxygen Delivery Method 03/21/25 14:21 03/21/25 14:23 03/21/25 14:30 Temperature 98 F Temperature Source Oral Pulse Rate 100 H 104 H Pulse Rate [Apical] 223 H Respiratory Rate 11 L 20 22 Blood Pressure 102/83 L 119/75 Blood Pressure [Right Arm] 116/82 Blood Pressure Mean 89 84 Blood Pressure Mean [Right Arm] 93 Blood Pressure Source Blood Pressure Source [Right Arm] Automatic Cuff Blood Pressure Position Blood Pressure Position [Right Arm] Sitting 02 Sat by Pulse Oximetry 100 97 95 Oxygen Delivery Method Room Air 03/21/25 14:31 03/21/25 15:00 03/21/25 15:30 Temperature Temperature Source Pulse Rate 99 H 100 H 100 H Pulse Rate [Apical] Respiratory Rate 14 19 25 H Blood Pressure 125/85 130/79 135/77 Blood Pressure [Right Arm] Blood Pressure Mean 94 91 93 Blood Pressure Mean [Right Arm] Blood Pressure Source Blood Pressure Source [Right Arm] Blood Pressure Position Blood Pressure Position [Right Arm] 02 Sat by Pulse Oximetry 100 100 100 Oxygen Delivery Method 03/21/25 16:00 03/21/25 16:30 03/21/25 18:17 Temperature 98.0 F Temperature Source Oral Pulse Rate 99 H 101 H 102 H Pulse Rate [Apical] Respiratory Rate 9 L 18 18 Blood Pressure 127/82 124/77 128/76 Blood Pressure [Right Arm] Blood Pressure Mean 91 Blood Pressure Mean [Right Arm] Blood Pressure Source Automatic Cuff Blood Pressure Source [Right Arm] Blood Pressure Position Sitting Blood Pressure Position [Right Arm] 02 Sat by Pulse Oximetry 100 99 Oxygen Delivery Method Room Air Room Air Lab Data Lab results reviewed: Yes I reviewed the patient's lab results. Labs: Lab Results 03/21/25 14:05: WBC 7.1, RBC 4.53, Hgb 12.8, Hct 37.8, MCV 83.4, MCH 28.3, MCHC 33.9, RDW 14.4, Plt Count 256, MPV 10.4, Neut % (Auto) 60.5, Lymph % (Auto) 30.3, Heard % (Auto) 5.1, Eos % (Auto) 3.4, Baso % (Auto) 0.6, Neut # (Auto) 4.3, Lymph # (Auto) 2.1, Heard # (Auto) 0.4, Eos # (Auto) 0.2, Baso # (Auto) 0.0, Sodium 139, Potassium 3.9, Chloride 110 H, Carbon Dioxide 21 L, Anion Gap 11.9, BUN 14, Creatinine 0.70, Estimated GFR 91, Est GFR ( Amer) 111, Glucose 125 H, Calcium 9.4, Magnesium 1.7, Total Bilirubin 0.5, AST 27, ALT 23, Alkaline Phosphatase 85, Troponin I < 0.01, NT-Pro-B Natriuret Pep 115, Total Protein 6.0 L, Albumin 3.9, Globulin 2.1, Albumin/Globulin Ratio 1.9 H, TSH < 0.02 L, Free T4 1.09, HCV Ab KATY w/Rflx PCR Qn Negative, HIV Ag/Ab Combo Qual Negative 03/21/25 17:00: Troponin I 0.01 Response Orders (Tests/Meds): ED MEDICATIONS Discontinued Medications Generic Name Dose Route Start Last Admin Trade Name Alexa PRN Reason Stop Dose Admin Diltiazem HCl 20 mg 03/21/25 14:19 03/21/25 14:19 Diltiazem 25mg/5ml Vial IV 03/21/25 14:20 20 mg ONCE ONE Administration Diltiazem HCl 60 mg 03/21/25 17:59 03/21/25 18:08 Diltiazem 30mg Tablet PO 03/21/25 18:00 60 mg ONCE ONE Administration ORDERS Category Date Time Status CXR --portable [XR chest portable] Stat Exams 03/21/25 14:16 Completed BNP [NT Pro Brain Natriuretic Pep.] Stat Lab 03/21/25 14:05 Completed CBC w/Auto Diff [Complete Blood Count Auto Diff] Stat Lab 03/21/25 14:05 Completed CMP [Comprehensive Metabolic Panel] Stat Lab 03/21/25 14:05 Completed Free T4 (Free Thyroxine) Stat Lab 03/21/25 14:05 Completed HIV Combo Routine Lab 03/21/25 14:05 Completed Hepatitis C Ab Qual. W/ RFX Routine Lab 03/21/25 14:05 Completed Magnesium Stat Lab 03/21/25 14:05 Completed TSH [Thyroid Stimulating Hormone] Stat Lab 03/21/25 14:05 Completed Troponin I Q3H Lab 03/21/25 17:00 Completed Troponin I Stat Lab 03/21/25 14:05 Completed ECG holter initial pfn Stat Y 03/21/25 17:59 Completed MDM Narrative Medical Decision Narrative: Patient was given a dose of oral diltiazem in the emergency department At this time, I offered admission versus discharge homeAracelis Adler is a 45y female with a history of anxiety, depression, obesity who presents to the emergency department via EMS for elevated heart rate and dizziness. Per patient, ever since her childhood she has had issues where she will feel her heart racing but was never taken to the doctor. She states that she would have to deal with it on her own . She states that recently she was followed by cardiology to get cleared for a upper endoscopy and was told that her workup was unremarkable. She states that today, she woke up with dizziness and then at around 11, felt that her heart was racing. She does report some chest pain and shortness of breath as well. She felt like it was her anxiety but all of the typical measures that she does to control her anxiety did not work. When EMS arrived, her heart rate was over 200. They attempted adenosine 6 mg followed by adenosine 12 mg without response each time. They noted that she was hypotensive and did electrical cardioverted twice, once at 100 J and again at 120 J. They state that after the second shock at 220 J, she temporarily converted out of SVT but then her heart rate became elevated again. Her blood pressure was normotensive just prior to arrival. Patient was given 2.5 mg of Versed. Patient does note that she had knee surgery over a month ago. On arrival, patient is noted to be significantly tachycardic with heart rate of 232 bpm. Blood pressure is stable. Patient was immediately placed on defibrillator pads and was moved over to hospital stretcher from EMS. Patient is alert, answering questions appropriately. She complains of dizziness and some mild chest pain. She does feel as if her heart is racing. Cardiopulmonary exam reveals no wheezing, rales or rhonchi. She is tachycardic with no murmurs. Regular rhythm. She does appear pale. Initial twelve-lead EKG was obtained that showed narrow complex tachycardia with a regular rhythm consistent with supraventricular tachycardia. Given patient's reassuring blood pressure, will attempt vagal maneuvers at this time. Patient blew into a 10 cc syringe and started she could and we laid the head of the bed back and lifted her legs up. After sitting the patient up, she converted to normal sinus rhythm, however, after approximately a minute, she converted back into SVT. Another attempt was made with the same vagal maneuver. She temporarily converted to normal sinus rhythm but then converted back to normal sinus rhythm. Will obtain cardiac workup including troponin, BNP, CBC with differential, CMP, magnesium level, TSH/free T4 chest x-ray. Patient's workup at this time shows no leukocytosis, no anemia, platelets within normal limits. Electrolytes grossly unremarkable nonactionable. Glucose normal at 125. Bicarb mildly low at 21. Liver enzymes within normal limits. Initial troponin less than 0.01. BNP normal at 115. At this time, the remainder of patient's laboratory workup is pending. Patient's chest x-ray is pending. I did discuss the patient's case with Yulisa Guevara APRN with the cardiology clinic. They recommended that if patient is getting discharged to place the patient on event monitor and have her follow-up in cardiology clinic tomorrow at 9 AM. Recommended starting either oral diltiazem or metoprolol. However, if determined patient needs admission or patient uncomfortable going home, admit the patient for overnight monitoring and echocardiogram in the morning. At this time, patient's ultimate disposition is pending completion of her workup and continue cardiac monitoring for recurrence of SVT. Kat Chi DO I assumed care of the patient at 1500. CXR was reviewed and interpreted by myself and showed no acute focal consolidation, pneumothorax, pleural effusion or other acute cardiopulmonary process. Patient's second troponin was less than 0.01. Patient remained in a normal sinus rhythm at a rate less than 110 during my care. Given that patient had multiple episodes of SVT I offered admission versus discharge. Patient has close follow-up with cardiology in the morning therefore patient felt comfortable with discharge home. Patient was placed on a Holter monitor. Patient was recommended to follow-up with cardiology in the morning at 9 AM. Patient was given an oral dose of diltiazem in the emergency department and patient was sent with 60 mg twice daily to start in the morning. Patient was otherwise discharged home in stable condition. Patient was given vagal maneuvers and advised to return to the emergency department if her SVT did not break at home.
[2025-03-21 14:39] LABS: NT Pro Brain Natriuretic Pep. 115 pg/mL (0-125)
[2025-03-21 14:43] LABS: Troponin I < 0.01 ng/ml (0.00-0.034)
--- NOTE | 2025-03-21 14:43 | PC.NURSE ---
Upon arrival, pt immediately moved over and placed on zoll monitor. VS - 116/82 HR 223 95%RA Resp 20-24. Pt visibly distressed and tearful. Dr. Mahoney and Sai Webb NP @ bedside. 1405 - EKG obtained, SVT noted. Pt has bilat #18 in AC's. Placed on 2 L O2 via nasal cannula for comfort. 1409 - MD and nursing staff at bedside. Vagal maneuver performed by pt, tolerated well and HR slowed to 80-90's. Sinus arrhythmia noted on tele. BP 103/76 1412 - HR increased to 230's. 1414 - Vagal maneuver performed by pt. 1415 - HR noted to be in the 70's. Dr. Mahoney gave v/o for 20 mg Cardizem IV x 1. BP 117/98 1419 - H JUDY Ceja admin 20 mg Cardizem IVP now. Verified w/ C JUDY Marrero 1421 - 102/83 HR responding 90-100's. 1422 - Cardizem IVP complete now. 1423 - 119/75 HR 92 100% 2L NC Pt repositioned in bed and remains on monitor. VSS. brought to bedside. Verbalizes feeling better. Call johana w/in reach. Updated on POC.
--- NOTE | 2025-03-21 14:49 | PC.NURSE ---
assisted bedside commode at this time
--- NOTE | 2025-03-21 14:58 | PC.NURSE ---
DR FLORES SPEAKING WITH CARDIOLOGY
[2025-03-21 15:13] LABS: Magnesium 1.7 mg/dl (1.6-2.3)
[2025-03-21 15:30] LABS: Free T4 (Free Thyroxine) 1.09 ng/dl (0.78-2.19)
[2025-03-21 15:45] LABS: Thyroid Stimulating Hormone < 0.02 uIU/mL (0.465-4.68)
[2025-03-21 17:15] LABS: Hepatitis C Ab Qual. W/ RFX NEGATIVE (Negative)
[2025-03-21 17:45] LABS: Troponin I 0.01 ng/ml (0.00-0.034)
--- NOTE | 2025-03-22 09:56 | PC.NURSE ---
Ana from [facility] management called that patient's insurance would not cover 12-hour release of diltiazem. Spoke with garcia Houser to switch diltiazem prescription to 24-hour release- 120 mg daily.
--- NOTE | 2025-03-22 10:04 | CARE MANAGER ---
Received denial on Dilt prescription from pharmacy from patient's insurance. Prescription sent in was 12hr and insurance wants long acting 24hr. Spoke with ER and Dr. Lawrence says to order Dilt ER 24hr 120mg. Called [facility] to provide new script and they state patient already picked up other med.
== END 2025-03-21 18:34 | disposition home or self-care (01) ==
PROVIDERS: Emergency Provider Student in an Organized Health Care Education/Training Program; PCP Family Medicine
DX: I47.10 Supraventricular tachycardia, unspecified (principal); R07.89 Other chest pain; R06.02 Shortness of breath; R42 Dizziness and giddiness
CPT/HCPCS: 71045; 80053; 83735; 83880; 84439; 84443; 84484; 85025; 86803; 87389; 93005; 93225; 93227; 96374; 99285; 99291

== ENCOUNTER 2025-03-25 15:29 | Outpatient (CLI) | payer OTHER, SELFPAY ==
--- OUTSIDE RECORDS SUMMARY | 2021-02-07 07:16 | XMS_ITS | Continuity of Care Document ---
Author Organization [facility] Address [address] [place] [address] Phone Care Team Providers Care Oracle Distribution Consultant Name Role Phone Aracelis Berumen MD Unavailable Unavailable Allergies, Adverse Reactions, Alerts Substance Reaction Status Criticality No Known Allergies Active No Inform ation Medications Medication Instructions Dosage Effective Dates (start - stop) Status Comments GABAPENTIN (unknown strength) Not Available - Active Cymbalta 30 mg capsule,delayed release - Active CONCERTA (unknown strength) Not Available - Active REMERON (unknown strength) Not Available - Active Procedures Procedure Date CONTACT LENS CONSULT (Return For Check) UNLISTED E&M SERVICE CONTACT LENS EVALUATION Routine Vision exam VISUAL FIELD EXAMINATION(S) Ophthalmological Services; Medical Exam And Eval, Intermediate, Est Pt UNLISTED E&M SERVICE CONTACT LENS EVALUATION Routine Vision exam CONTACT LENS EVALUATION Routine Vision exam CONTACT LENS EVALUATION Routine ophthalmological exa CONTACT LENS EVALUATION Routine ophthalmological exa CONTACT LENS CONSULT CONTACT LENS EVALUATION Routine ophthalmological exa CONTACT LENS EVALUATION Routine ophthalmological exa CANCEL Routine ophthalmological exa CONTACT LENS EVALUATION Advance Directives Directive Yes / No Effective Date File Name No Information Encounters Encounter Description Practice Location Reason(s) For Visit Diagnoses Date Provider Providers Copied on [facility]counter [facility] [address], [place], [place], [id number] , tel:[phone] [facility] No Information 1 Jamaica Hsu. [address] [facility], [facility] [address], [place], [address], [place]. tel:[phone] UNLISTED E&M SERVICE [facility], [address], [place], [place], [id number] , [place] tel:[phone] [facility] Biofinity OD and My Day OS (chief complaint) Myopia, bilateral 1 Augie Lozada. [address] [facility], [address], [place], [place], [id number], [place]. [phone] [facility], [address], [place], [place], [id number] , [place] tel:[phone] [facility] routine exam (chief complaint)vidhi rred va (chief complaint) Pigment dispersion syndrome of both eyesMyopia of both eyesRegular astigmatism of both eyesTransient visual loss of right eye 1 Augie Lozada. [address] [facility], [address], [place], [place], [id number], [place]. tel:[phone] [facility], [address], [place], [place], [address] , [place] tel:[phone] [facility] vision loss OD (chief complaint) Transient visual loss of right eyeHistory of concussionPDS (pigmentary dispersion syndrome), bilateral Vincent- 0 Jamaica Hsu. [address] [facility], [facility] [address], [place], [address], [place]. tel:[phone] Referring Provider: Aracelis Calderon, [address] [facility] [address], [place], [address]. tel:[phone] UNLISTED E&M SERVICE [facility], [address], [place], [place], [id number] , [place] tel: [phone] [facility] Glasses check (chief complaint) Myopia of both eyes 0 Lucier Kierra. [address] [facility], [address], [place], [place], [address], [place]. [phone] [facility], [address], [place], [place], [address] , [place] tel: [phone] [facility] routine exam (chief complaint) Myopia of both eyesRegular astigmatism of both eyesPigment dispersion syndrome of both eyes 0 Lucier Kierra. [address] [facility], [address], [place], [place], [id number], [place]. tel:[phone] [facility], [address], [place], [place], [address] , [place] tel: [phone] [facility] dryness (chief complaint) PDS (pigmentary dispersion syndrome), bilateralMyop ia, bilateralRegu lar astigmatism, bilateral 9 Lucier Kierra. [address] [facility], [address], [place], [place], [address], [place]. tel:[phone] [facility], [address], [place], [place], [id number] , [place] tel: [phone] [facility] CL Comprehensive Eye Exam (chief complaint) Myopia of both eyesRegular astigmatism of both eyesPigment dispersion syndrome of both eyes 8 No Information [facility], [address], [place], [place], [id number] , [place] tel: [phone] [facility] decreased vision (chief complaint) PDS (pigmentary dispersion syndrome), bilateralMyop ia of both eyesRegular astigmatism of both eyes - 7 No Information [facility], [address], [place], [place], [address] , [place] tel: [phone] [facility] CL check (chief complaint) Myopia of both eyes 6 No Information [facility], [address], [place], [place], [id number] , tel: [phone] [facility] decreased vision (chief complaint) Myopia of both eyesAstigmati sm of both eyesPDS (pigmentary dispersion syndrome), bilateral Feb-2 6 No Information [facility], [address], [place], [place], [address] , tel: [phone] [facility] Routine exam (chief complaint)Con tact lens evaluation (chief complaint)Dry eyes (chief complaint) MyopiaAstigma tism, unspecifiedPi gmentary dispersion syndrome Feb-1 0- 5 No Information [facility], [address], [place], [place], [address] , tel: [phone] [facility] No Information Feb-0 5 No Information [facility], [address], [place], [place], [address] , tel: [phone] [facility] MyopiaPigment carmelo dispersion syndromeAstig matism, unspecified Sep-3 0 3 No Information Family History Family Member Type Diagnosis Age At Onset Problem (finding) Family history of hyper tension Problem (finding) Family history of Cardi ovascular disease Problem (finding) Family history of Thyro id disorder Problem (finding) Family history of malignant neoplasm of lung Problem (finding) Family history of glauc ashley Problem (finding) Family history of Cance r, brain Immunizations Vaccine Date Status Comments Influenza, seasonal, injectable administe red Source: Other Provider Influenza, seasonal, injectable administe red Source: Other Provider Influenza, seasonal, injectable administe red Source: Other Provider Payers Payer name Insurance type Covered libertarian ID Authoriza tion(s) No Information Social History Type Description Quantity Date Captured Comments Sex Female Smoking Status No Information Chief Complaint And Reason For Visit No Information Reason For Referral Reason For Referral No Information Plan Of Treatment Date Type Action Status Future Order: Radiology Order Ze [id number] ([id number]), Sent on: Sent Future Order: Radiology Order Ze [id number] ([id number]), Sent on: Sent History Of Present Illness Encounter Date Complaint History Of Prese nt Illness Biofinity OD and My Day OS The [age] year old female presents for evaluation of Biofinity OD and My Day OS.Wearing new rx OD and old rx OS.Could not tolerance my day CLs. Uncomfortable.Pt states eyes have been really dry lately. Unsure if dryness is what caused her issues initially with the new set of Biofinity CLs.Ordered some Refresh gel to use QHS.NEGATIVE COVID SCREEN routine exam The 40 year old female presents for a routine exam.Va stable since last visit.No glasses today.CLs are comfortable but would like to switch back to Acuvue oasys.Wears everyday. 12+ hrs per day-sleep Changes out every 3-4 weeksDenies pain or pressure, but notes some irritation due to allergies.neg covid screen blurred va The patient is p resent for evaluation of blurred va in the right eye. Occasional x 1 year. Only occurs if she wakes up in the middle of the night and covers OS. Has not noticed any increased frequency.Tried eyeshield at night, but could not get used to it. Not sure if it made a difference. vision loss OD The 39 year old female presents for evaluation of vision loss OD.Occur 3x since 11/15/2019 Lasts ~a minute. All occurred when awoke in middle of the night.The first time had total loss of vision - black. The second time when woke up in middle of night. Had dark spot in vision.The third time was just blurry. Occurred 11/25/19.No associated systemic symptoms. No light flashes OS OKPt inconsistent w/history. Initially said it occurred when going to bed. Then said after sleeping and waking up.Above history taken by Dr. Berumen. History below taken by driver license technician.states that when is started is was as if something clouded over her cornea. (like if there was a spot of color on a lens and you were looking through it but on her eye)the first time it happened she had just got out of the shower and feels as if something got in her eye and it was painful.no pain since. denies flashes and floaters.denies light sensitivity. Glasses check The 39 year old female presents for evaluation of Glasses checkpatient was just seen on 06/30/2019 for CLCEE.She took her RX to [facility] to get glasses. Patient notes that it has been a very long time since she has worn glasses but that when she put these on she almost immediately got a headache and became dizzy.Patient has been wearing her CL's everyday since.During testing patient notes she was becoming Dizzy , she feels as if OS is pulling toward her ear and she is having a difficult time finding a balance in the lens. routine exam The 39 year old female presents for evaluation of routine exam. Pt states vision is stable. No changes since last visit.Wearing Biofinity, toric OS, 12+ hours per day, fit and comfort still good.Pt states 3-4 days ago, CL tore in half and got stuck in OD. She got both pieces out but OD was a little irritated. dryness The 38 year old female presents for evaluation of dryness in the right eye and left eye while wearing biofinity CLs.H/O good comfort with aoasys 2 week.H/O trying Amy dailies, but too $$ for pt.Takes CLs out night and wears for 12 hrs/day.Slight change in va s/p concussion during summer of 2017. Va seems better now. Currently going through therapy for vertigo. CL Comprehensive Eye Exam CL AWT is 14 hours a day. Pt has worn her CL for about 3 hours today. PT states she doesn't sleep in her CL, CL are comfortable. Vsn is good. ANGEL is Replenish. Pt changes her CL out monthly. The 37 year old female presents for evaluation of CL Comprehensive Eye Exam. Patient denies decreased vision, change in vision, eye pain and headaches, no burning or itching, no watering/tearing and no redness, dryness or irritation. Pt is here today for Just a routine eye exam. decreased vision The 36 year old female presents for evaluation of decreased vision in the right eye and left eye thinks it may be stress. Patient likes the fit and the feel of her Biofinity toric contacts and wears them for 10+ hours a day. Patient denies sleeping in her contacts. CL check The 35 year old female presents for evaluation of CL check in the right eye and left eye. Pt tried AV Oasys CLs and she prefers Biofinity, her previous CLs.C/O a little discomfort with the new CLs. Good vision. AWT 12-14 hours/day. Never sleeps in them. Uses OptiFree solution. decreased vision The 35 year old female presents for evaluation of decreased vision in the right eye and left eye in the last couple months for distance. Patient states likes the fit and comfort of her contacts and wears them for 12 + hours a day. Contact lens evaluation pt is in Biofinity eyes get dryer needs to rewet and pt doesnt like as well as Oasys. AWT 10 hrs. disp. 2 months. Routine exam pt denies pain, headaches Dry eyes dry eyes whille wearing cl. Functional Status Date Functional Assessmen t No Information Instructions Date Instruction Additional Infor maxine Impression/Plan Impression/Plan Impression/Plan Impression/Plan as sched Related to Trans ient visual loss of right eye Impression/Plan Related to Trans ient visual loss of right eye Impression/Plan Impression/Plan Impression/Plan - New glasses Rx was given today. Will continue to observe condition and or symptoms. Call if VA worsens. CL rx finalized today, Biofinity, toric OS. Good fit, comfort and vision OU. Pt instructed to remove CL's if increase pain, increase redness, or decrease vision and rtc immediately. Discussed increased glaucoma risk, monitor annually. Related to Myopia of both eyes - Return in 1 year w Kiera Ritchie for Complete Exam / Contacts Related to Myopia of both eyes - Discussed PDS with patient and associated increased risk of glaucoma. Discussed importance of annual eye exams to monitor for any changes. New glasses Rx was given today. Patient given update CLs today, Biofinity (DW, dispose monthly). Will continue to observe condition and or symptoms. Call if VA worsens. Related to See list of assessments above - Return in 1 year w Kiera Ritchie for Complete Exam / Contacts. Related to See list of assessments above - New trials given f or Biofinity, toric OS. If happy with VA ok to order. Solutions: Optifree. Wear time: 11-14 hours per day. Start new lenses: every 30 days. Additional Instructions: pt instructed not to sleep in lenses. Return to clinic: Kiera Adorno 1 year complete exam All risks and benefits of contact lens wear discussed with patient and/or guardian and level of charges. Related to Myopia of both eyes - Return in 1 year w Kiera Ritchie for Complete Exam / Contacts Related to Myopia of both eyes - New glasses Rx was given today. Patient given update CLs today, AV Oasys. DW, dispose biweekly. optifree. Discussed diagnosis in detail with patient and associated risk of glaucoma. Will continue to observe condition and or symptoms. Call if VA worsens. Related to See list of assessments above - Return in 1 year w Kiera Ritchie for Complete Exam / Contacts. Related to See list of assessments above - New glasses Rx was given today. CL trials ordered, Air Optix, toric OS, if pt likes these then will need CL ck prior to finalizing rx. If pt prefers to go back to AV Oasys then ok to order. Discussed PDS in detail with patient and associated risk of glaucoma. No treatment is required at this time. Discussed risks of condition and patient understands. Advised patient of condition. Will continue to observe condition and or symptoms. Related to See list of assessments above - Return in 1 year w Kiera Ritchie for Complete Exam / Contacts. Related to See list of assessments above General plan -Myopia -Pigmentary dispersion syndrome -Astigmatism - New glasses and contact lens prescription given to patient. Call with any questions, concerns or changes in vision. Discussed risks & benefits of Contact Lens wear. Educated patient about proper wear schedule with contact lenses. Discussed PDS, and importance of yearly eye exams with IOP checks, she understands. Related to See impression: general plan - Return 1 year with Son Valentine for Complete Exam / Contacts. Related to See impression: general plan Assessments Type Assessment Date No Information Patient Care Teams Name Effective Dates (start - stop) Status Members No Information
--- OUTSIDE RECORDS SUMMARY | 2024-04-28 10:00 | XMS_ITS | Encounter Summary ---
Author Organization [employer] ([place], [place], [place], [place]) Address [address] [place] [address] Care Team Providers Care Flower Pot Press Operator Name Role Phone Unavailable Primary Care Provider Unavailabl e Encounter Details Date Type Department Care Team (Late st Contact Info) Description 04/28/2024 10:00 AM EDT Hospital Encounter [address] Medical Telemetry [address] [place] [address] [place] [address] [place] [address] [address] [place] [address] Social History Tobacco Use Types Packs/Day Years Used Date Smoking Tobacco: Never Smokeless Tobacco: Never Alcohol Use Standard Drinks/Week Comments Never 0 (1 standard drink = 0.6 oz pur e alcohol) Family and Community Support Answer Jay e Recorded Help with Day to Day Activities Not on file 07/17/2023 Feeling Lonely or Isolated Not on file 07/17 Educational Attainment Answer Date Issac rded Speak language other than Scottish at home Not on file 07/17/2023 Want help with school or training Not on file 07/17/2023 Substance Use Answer Date Recorded Used prescription meds for non-medical reasons N ot on file 07/17/2023 Used illegal drugs past 12 months Not on file 07/17/2023 Comments No Sex and Gender Information Value Date Recorded Sex Assigned at Not on file Legal Sex Female 12:59 PM CDT Gender Identity Not on file Sexual Orientation Not on file documented as of this encounter Plan of Treatment Upcoming Encounters Date Type Department Care Team (Late st Contact Info) Description 04/16/2025 2:00 PM EDT Office Visit [facility] - [address] [phone] Lg Chu MD [address] [place] [id number] documented as of this encounter Visit Diagnoses Not on filedocumented in this encounter
--- OUTSIDE RECORDS SUMMARY | 2025-02-01 10:00 | XMS_ITS | Encounter Summary ---
Author Organization [employer] ([place], [place], [place], [place]) Address [address] [place] [address] Care Team Providers Care Shear Helper Name Role Phone Provider, Not In System Primary Care Provider Un available Reason for Visit * Reason Comments Post-Op Follow-up S/p Right Total Knee Arthroplasty with [employer] press-fit , size 4 tibia, size 4 femur, 12 mm polyethylene insert, and 32 mm press-fit patella Encounter Details Date Type Department Care Team (Late st Contact Info) Description 02/01/2025 10:00 AM EDT Office Visit [facility] Orthoped[facility] - [address] [phone] Lg Chu MD [address] [place] [phone] S/P total knee arthroplasty, right (Primary Dx) Social History Tobacco Use Types Packs/Day Years [...] Date Issac rded Speak language other than [place] at home Not on file 07/17/2023 Want [...] on file documented as of this encounter Last Filed Vital Signs Vital Sign Reading Time Taken Comments Blood Pressure 115/78 02/01/2025 10:18 AM EDT Pulse 109 02/01/2025 10:18 AM EDT Temperature - - Respiratory Rate - - Oxygen Saturation - - Inhaled Oxygen Concentration - - Weight 127 kg (280 lb) 02/01/2025 10:18 AM EDT Height 175.3 cm (5' 9 ) 02/01/2025 10:18 AM EDT Body Mass Index 41.35 02/01/2025 10:18 AM EDT documented in this encounter Progress Notes * Lg Chu MD - 02/01/2025 10:00 AM EDT Images from the original note were not included. NAME: Aracelis Adler CSN: [id number] : 02/24/1980 PCP: Not In System Provider ABRIDGE CONSENT The following consent language was reviewed verbally with the patient in full: Lauryn, I am using a tool to help me do my notes. It is recording our conversation and creates my notes automatically and I can focus on our discussion instead of typing in the room. Is that okay with you? The patient demonstrated understanding and verbally agreed to the above consent language. All questions were addressed, and the patient provided informed consent to proceed. REASON FOR VISIT Post-Op Follow-up (S/p Right Total Knee Arthroplasty with [employer] press- fit , size 4 tibia, size 4 femur, 12 mm polyethylene insert, and 32 mm press-fit patella) Is this Worker's Comp? No HPI History of Present Illness Aracelis Adler is a 44 year old female who presents for follow-up after RTKA 01/17/25 She is actively participating in physical therapy following her knee surgery. She has been experiencing severe diarrhea for two days due to medication side effects, which has affected her overall well-being. This was her first time taking the medication, and it led to a temporary reduction in her physical therapy activities. She is focused on regaining motion and strength in her knee, aiming for as much movement as possible within the first six weeks post-surgery. Increased walking leads to more swelling, so she is balancing her activities accordingly. CURRENT MEDICATIONS Current Outpatient Medications Medication Instructions acetaminophen (TYLENOL) 1,000 mg, oral, Every 8 hours PRN celecoxib (CELEBREX) 200 mg, oral, Daily cetirizine (ZYRTEC) 10 mg, Daily Concerta 54 mg, Daily DULoxetine (CYMBALTA) 60 MG capsule 2 capsules, Daily gabapentin (NEURONTIN) 300 mg, 4 times daily lamoTRIgine (LAMICTAL) 25 mg, Daily lifitegrast (Xiidra) 5 % Dpet No dose, route, or frequency recorded. mirtazapine (REMERON) 15 mg, Every Night oxyCODONE (ROXICODONE) 5 mg, oral, Every 6 hours PRN tiZANidine (ZANAFLEX) 4 MG tablet 1 tablet, 2 times daily traMADoL (ULTRAM) 50 mg, oral, Every 8 hours PRN ALLERGIES Allergies Allergen Reactions Gluten Protein Diarrhea and Swelling PAST MEDICAL/SURGICAL HISTORY Past Medical History: Diagnosis Date ADHD (attention deficit hyperactivity disorder) 06/28/1986 Ankylosing spondylitis ([facility]) Anxiety 06/28/1995 Arthritis Autoimmune disease ([facility]) POSSIBLE-BEING INVESTIGATED Carpal tunnel syndrome Depression 06/28/1995 Eczema Fractures Obesity Osteoarthritis Scoliosis TBI (traumatic brain injury) ([facility]) 2016 Vertigo Past Surgical History: Procedure Laterality Date FRACTURE SURGERY Broken jaw and broken nose INJECTION,MAJOR JOINT KNEES LASIK Bilateral 2019 MAKOPLASTY,KNEE Right 01/17/2025 Procedure: ARTHROPLASTY, KNEE, ROBOT-ASSISTED, POSSIBLE PARTIAL KNEE ARTHROPLASTY; Surgeon: Lg Schwartz MD; Location: [facility]; Service: Orthopedic Surgery; Laterality: Right; Right knee unicompartmental knee arthroplasty versus total knee arthroplasty, robot assisted SEPTOPLASTY SOCIAL HISTORY Social History Tobacco Use Smoking status: Never Smokeless tobacco: Never Substance Use Topics Alcohol use: Never Drug use: Yes Types: Marijuana Comment: weekly FAMILY HISTORY Family History Problem Relation Name Age of Onset Arthritis Mother Ching Depression Mother Ching Hypertension Mother Ching Learning disabilities Mother Ching Mental illness Mother Ching Miscarriages / Stillbirths Mother Ching Migraines Mother Ching High blood pressure Mother Ching Osteoporosis Mother Ching Lupus Mother Ching Depression Father Jarad Depression Sister Jeri Cancer Maternal Grandmother Raegan brain Early Paternal Grandfather Dangelo Heart attack Paternal Grandfather Dangelo Cancer Paternal Aunt Maral lung Brain cancer Other REVIEW OF SYSTEMS General: No recent fever or chills, no recent weight loss or weight gain, no insomnia HEENT: No change in vision, no glasses/contacts, no hearing loss, no tinnitus, no vertigo, no congestion/sinus issues CVS: No chest pain, no palpitations, no edema, no varicose veins Resp: No dyspnea, no wheezing, no cough, no hemoptysis GI: No dysphagia, no nausea, no vomiting, no heart burn, no constipation, no diarrhea : No dysuria, no hematuria, no nocturia, no history of chronic UTI Musculoskeletal: See HPI Derm: No rash, no abrasions, no skin discoloration, no history or MRSA Neuro: See HPI Endo: No cold/heat intolerance Heme: No abnormal bruising or bleeding Psych: No depression, no anxiety, no fatigue, no mood swings OBJECTIVE Vitals: 02/01/25 1018 BP: 115/78 Pulse: 109 Weight: 127 kg (280 lb) Height: 1.753 m (5' 9 ) right Knee Exam General: Awake, Alert, Oriented x3, Well developed Appearance: Swelling WNL, - deformity Palpation: Tender to palpation diffuse WNL ROM: decreased Flexion, 0 Extension Strength: 4/5 Neurovascular: NVI, -Homans Skin: dressing intact without obvious drainage or erythema Gait: Abnormal ambulating with walker IMAGING/OUTSIDE REPORTS XR knee 1 or 2 views right AP Lateral Right knee shows well fixed TKA in good alignment and no acute complications ASSESSMENT/PLAN Problem List Items Addressed This Visit Other S/P total knee arthroplasty, right - Primary Relevant Orders XR knee 1 or 2 views right Assessment & Plan S/P RTKA 01/17/25 Postoperative care is progressing well with clean incision, improving range of motion, minimal swelling, and satisfactory x-rays. - Emphasize motion and strength training for six weeks. - Balance activity to manage swelling. - Use extra strength Tylenol for pain. - Apply ice to reduce inflammation. - Elevate leg to manage swelling. -WBAT -Ice Return in about 4 weeks (around 03/01/2025) for S/P RTKA, DOS: 01/17/25. Scribe Attestation: Kelly Sandhu CMA/HAJA acted as a scribe and transcribed components of the current encounter under the direction of the Attending Provider. I have not been involved in providing any clinical treatments or patient care. Electronically Signed, CARA Will I, Lg Chu MD attest that I have examined the above patient. I have dictated the exam, diagnosis, and plan to the scribe listed above to be transcribed into this document. I have supplemented the above documentation as warranted. I attest that I have reviewed the above documentation in its entirety and concur. Electronically Signed, Lg Chu MD 02/01/2025 10:34 AM EDT documented in this encounter Plan of Treatment Upcoming Encounters Date Type Department Care Team (Late st Contact Info) Description 04/16/2025 2:00 PM EDT Office Visit [facility] - [address] [phone] Lg Chu MD [address] [place] [phone] documented as of this encounter Results * XR knee 1 or 2 views right (02/01/2025 10:29 AM EDT) Anatomical Region Laterality Modality Thigh, Knee, Leg X-Ray Narrative 02/01/2025 11:20 AM EDT AP Lateral Right knee shows well fixed TKA in good alignment and no acute complications us Lg Chu MD [facility] ORDERA BLES Final Result documented in this encounter Visit Diagnoses Diagnosis S/P total knee arthroplasty, right- Primary S/P total knee arthroplasty, right documented in this encounter Care Teams Shear Helper Relationship Specialty Start Date End Date Provider, Not In System [place] PCP - General 01/08/25 documented as of this encounter
--- OUTSIDE RECORDS SUMMARY | 2025-02-01 10:25 | XMS_ITS | Encounter Summary ---
Author Organization [employer] ([place], [place], [place], [place]) Address [address] [place] [address] Care Team Providers Care Central Station Operator Name Role Phone Provider, Not In System Primary Care Provider Un available Encounter Details Date Type Department Care Team (Late st Contact Info) Description 02/01/2025 10:25 AM EDT Ancillary Procedure [facility] Orthopedics - [address] [phone] Lg Chu MD [address] [place] [phone] S/P total knee arthroplasty, right Social History Tobacco Use Types Packs/Day Years [...] Date Issac rded Speak language other than [place]otho at home Not on file 07/17/2023 Want [...] Description 04/16/2025 2:00 PM EDT Office Visit [facility] Orth[facility] - [address] [phone] Lg Chu MD [address] [place] [phone] documented as of this encounter Procedures Procedure Name Priority Date/Time Associated Diagnosis Comments XR KNEE 1 OR 2 VIEWS RIGHT Routine 02/01/2025 10:29 AM EDT S/P total knee arthroplasty, right documented in this encounter Results * XR knee 1 [...] Visit Diagnoses Diagnosis S/P total knee arthroplasty, right documented in this encounter Care Teams Central Station Operator Relationship Specialty Start Date End Date Provider, Not In System [place] PCP - General 01/08/25 documented as of this encounter
--- OUTSIDE RECORDS SUMMARY | 2025-03-05 14:00 | XMS_ITS | Encounter Summary ---
Author Organization [employer] ([place], [place], [place], [place]) Address [address] [place] [address] Care Team Providers Care Corporate Planning Manager Name Role Phone Provider, Not In System Primary Care Provider Un available Reason for Visit * Reason Comments Post-Op Follow-up S/p RTKA. DOS: 025 Encounter Details Date Type Department Care Team (Late st Contact Info) Description 03/05/2025 2:00 PM EDT Office Visit [facility] Orthoped[facility] - [address] [phone] Lg Chu MD [address] [place] [phone] S/P total knee arthroplasty, right (Primary Dx) [...] Date Issac rded Speak language other than [place]ian at home Not on file 07/17/2023 Want [...] Sign Reading Time Taken Comments Blood Pressure 135/81 03/05/2025 2:41 PM EDT Pulse 96 03/05/2025 2:41 PM EDT Temperature - - Respiratory Rate - - Oxygen Saturation - - Inhaled Oxygen Concentration - - Weight 122.5 kg (270 lb) 03/05/2025 2:41 PM EDT Height 175.3 cm (5' 9 ) 03/05/2025 2:41 PM EDT Body Mass Index 39.87 03/05/2025 2:41 PM EDT documented in this encounter Progress Notes * Lg Chu MD - 03/05/2025 2:00 PM EDT NAME: Aracelis Adler CSN: [id number] : 02/24/1980 PCP: Not In System Provider [...] proceed. REASON FOR VISIT Post-Op Follow-up (S/p RTKA. DOS:01/17/2025) Is this Worker's Comp? No HPI History of Present Illness Aracelis Adler is a 45 year old female who presents with nerve pain following knee surgery. Patient presents for follow-up s/p RTKA DOS 01.17.25. Patient reports to clinic for a s/p RTKA. DOS: 01/17/2025.Patient is ambulating with a cane. Patient reports pain 5/10. Patient reports to taking Tylenol andAleve. Patient reports that they no longer pet caregiver her relief that she needs. Patient reports to having a lot of nerve pain starting at knee and goes up the thigh. She is experiencing significant nerve pain following her knee surgery, which is exacerbated by walking or during hamstring stretches. The pain is sharp and shooting, radiating down her leg into her foot and back up into her back. She is currently six weeks post-surgery and has been undergoing physical therapy to improve knee flexion and extension. She has difficulty finding the right position during therapy due to the pain and has been communicating this issue to her therapists. At home, she uses a massage table to assist with her exercises, with help from someone named Rafi. She is actively engaging in exercises to improve her knee's range of motion, including stretching and holding positions to increase flexibility. She is concerned about the possibility of sciatica contributing to her symptoms, as she experiencespain radiating down her leg. CURRENT MEDICATIONS Current Outpatient Medications Medication Instructions cetirizine (ZYRTEC) 10 mg, Daily Concerta 54 mg, Daily DULoxetine (CYMBALTA) 60 MG capsule 2 capsules, Daily gabapentin (NEURONTIN) 300 mg, 4 times daily lamoTRIgine (LAMICTAL) 25 mg, Daily lifitegrast (Xiidra) 5 % Dpet No dose, route, or frequency recorded. mirtazapine (REMERON) 15 mg, Every Night tiZANidine (ZANAFLEX) 4 MG tablet 1 tablet, 2 times daily ALLERGIES Allergies Allergen Reactions Gluten Protein Diarrhea and Swelling PAST MEDICAL/SURGICAL HISTORY Past Medical History: Diagnosis Date ADHD (attention deficit hyperactivity disorder) 06/28/1986 Ankylosing spondylitis ([facility]) Anxiety 06/28/1995 Arthritis Autoimmune disease ([facility]) POSSIBLE-BEING INVESTIGATED Carpal tunnel syndrome Depression 06/28/1995 Eczema Fractures Obesity Osteoarthritis Scoliosis TBI (traumatic brain injury) ([facility]) 2016 Vertigo Past Surgical History: Procedure Laterality Date FRACTURE SURGERY Broken jaw and broken nose INJECTION,MAJOR JOINT KNEES LASIK Bilateral 2019 MAKOPLASTY,KNEE Right 01/17/2025 Procedure: ARTHROPLASTY, KNEE, ROBOT-ASSISTED, POSSIBLE PARTIAL KNEE ARTHROPLASTY; Surgeon: Lg Schwartz MD; Location: [facility]; Service: Orthopedic Surgery; Laterality: Right; Right knee [...] attack Paternal Grandfather Dangelo Cancer Paternal Aunt Mraal lung Brain cancer Other REVIEW OF SYSTEMS [...] no fatigue, no mood swings OBJECTIVE Vitals: 03/05/25 1441 BP: 135/81 Pulse: 96 Weight: 122.5 kg (270 lb) Height: 1.753 m (5' 9 ) Physical Exam GENERAL: Awake, Alert, Oriented 3, Well developed APPEARANCE: Swelling within normal limits, no deformity PALPATION: Tender to palpation diffuse within normal limits RANGE OF MOTION: Knee flexion approximately 105 degrees, knee extension close to full STRENGTH: 4 out of 5 TESTING: + straight leg raise on the right. No laxity of the knee NEUROVASCULAR: Neurovascularly intact, negative Homans GAIT: Abnormal ambulating with walker SKIN: Clean, dry, intact incision without obvious evidence of erythema or drainage. Well healed ASSESSMENT/PLAN Problem List Items Addressed This Visit Other S/P total knee arthroplasty, right - Primary Assessment & Plan Right total knee arthroplasty, post-operative recovery Six weeks post-operative. Progressing well with physical therapy. Achieved near full extension and 105 degrees flexion, aiming for 110 degrees. Emphasized achieving full range of motion within six totwelve weeks post-surgery. - Continue physical therapy focusing on flexion and extension exercises. - Perform exercises to activate quadriceps and improve knee movement. - Encourage self-directed exercises at home, including static nerve stretches and flexion exercises. Nerve pain following right knee arthroplasty Experiencing nerve pain radiating down the leg, possibly sciatica. Pain during hamstring stretches and prolonged walking. Discussed importance of continuing exercises despite pain for optimal recovery. - Provide exercises for sciatic nerve stretches to perform at home. I, Lg Chu MD attest that I have examined the above patient. I have dictated the exam, diagnosis, and plan to the scribe listed above to be transcribed into this document. I have supplemented the above documentation as warranted. I attest that I have reviewed the above documentation in its entirety and concur. Electronically Signed, Lg Chu MD 03/05/2025 3:01 PM EDT documented in this encounter Plan of Treatment Upcoming Encounters Date Type Department Care Team (Late st Contact Info) Description 04/16/2025 2:00 PM EDT Office Visit [facility] Orth[facility] - [address] [phone] Lg Chu MD [address] [place] [phone] documented as of this encounter Visit Diagnoses Diagnosis S/P total knee arthroplasty, right- Primary documented in this encounter Care Teams Corporate Planning Manager Relationship Specialty Start Date End Date Provider, Not In System [place] PCP - General 01/08/25 documented as of this encounter
--- OUTSIDE RECORDS SUMMARY | 2025-03-15 10:00 | XMS_ITS | Encounter Summary ---
Author Organization [employer] ([place], [place], [place], [place]) Address [address] [place] [address] Care Team Providers Care Lan Analyst Name Role Phone Provider, Not In System Primary Care Provider Un available Reason for Referral * Consultation (Routine) - Authorized Specialty Diagnoses / Procedures Referred By Contac t Referred To Contact Physical Therapy Diagnoses S/P total knee arthroplasty, right Lg Chu MD [address] [place] [phone] Phone: tel: fax: [facility] OP Physical Therapy [address] [place] [phone] Phone: tel: fax: Referral ID Status Reason Start Date Expiration Date Visits Requested Visits Authorized [id number] Authorized Specialty Services Required 03/15/2025 06/27/2025 6 6 Reason for Visit * Reason Comments Post-Op Follow-up S/p RTKA. DOS: 025 Encounter Details Date Type Department Care Team (Late st Contact Info) Description 03/15/2025 10:00 AM EDT Office Visit [facility] - [address] [phone] Lg Chu MD [address] [place] [phone] S/P total knee arthroplasty, right (Primary [...] Date Issac rded Speak language other than [place] at home Not on file 07/17/2023 Want [...] Sign Reading Time Taken Comments Blood Pressure 120/82 03/15/2025 10:34 AM EDT Pulse 77 03/15/2025 10:34 AM EDT Temperature - - Respiratory Rate 18 03/15/2025 10:34 AM EDT Oxygen Saturation - - Inhaled Oxygen Concentration - - Weight 122.5 kg (270 lb) 03/15/2025 10:34 AM EDT Height 175.3 cm (5' 9 ) 03/15/2025 10:34 AM EDT Body Mass Index 39.87 03/15/2025 10:34 AM EDT documented in this encounter Progress Notes * Lg Chu MD - 03/15/2025 10:00 AM EDT NAME: Aracelis Adler CSN: [id number] : 02/24/1980 PCP: Not In System Provider [...] a 45 year old female who presents for right knee follow-up s/p RTKA DOS: 01/17/25. Patient reports that [facility] PT is causing severe pain after getting on Zero knee and they push on her knee. Patient reports that she almost black out from the pain. Patient reports that she has talked to the owners of PT and they do not understand the severity of her pain during those stretches.Patient reports that she tried telling PT yesterday not to do that stretch and she feels like she is not being heard at PT. Patient reports that her pain is so severe that she has almost had panic attacks and she is concerned that she will have a heart attack from the pain. Patient reports that symptoms have worsened. Patient reports that she is unsure if Pt has injured the knee or not. Patient rates pain 0/10 sitting, walking 6-7/10 today. She experiences shooting knee pain following physical therapy sessions after her knee surgery, which sometimes causes immobility, particularly after activities such as showering. The pain is localized to the surgical site, and she is concerned about its intensity. She recounts her experience with a physical therapy provider in [facility], where the therapists were overly aggressive in pushing her knee to achieve full extension. This caused discomfort and distress, leading her to cancel further appointments with that provider. She has since switched to a different therapist, hoping for a better experience. She has been independently working on her knee's range of motion, focusing on both extension and flexion. She notes dealing with scar tissue on the side of her knee, which she has been actively working on to improve her condition. She expresses frustration with the physical therapy approach that emphasized passive motion, involving therapists pushing her knee into extension. She questions the necessity of such aggressive techniques during physical therapy. CURRENT MEDICATIONS Current Outpatient Medications Medication Instructions [...] (attention deficit hyperactivity disorder) 06/28/1986 Ankylosing spondylitis ([facility]) Anxiety 06/28/1995 Arthritis Autoimmune disease ([facility]) POSSIBLE-BEING INVESTIGATED Carpal tunnel syndrome Depression 06/28/1995 Eczema Fractures Obesity Osteoarthritis Scoliosis TBI (traumatic brain injury) ([facility]) 2016 Vertigo Past Surgical History: Procedure Laterality Date FRACTURE SURGERY Broken jaw and broken nose INJECTION,MAJOR JOINT KNEES LASIK Bilateral 2019 MAKOPLASTY,KNEE Right 01/17/2025 Procedure: ARTHROPLASTY, KNEE, ROBOT-ASSISTED, POSSIBLE PARTIAL KNEE ARTHROPLASTY; Surgeon: Lg Schwartz MD; Location: [facility]; Service: Orthopedic Surgery; Laterality: Right; Right knee [...] no fatigue, no mood swings OBJECTIVE Vitals: 03/15/25 1034 BP: 120/82 Pulse: 77 Resp: 18 Weight: 122.5 kg (270 lb) Height: 1.753 m (5' 9 ) Body mass index is 39.87 kg/m??. Right knee GENERAL: Awake, Alert, Oriented 3, Well developed APPEARANCE: Swelling within normal limits, no deformity PALPATION: Tender to palpation with hypersensitivty RANGE OF MOTION: Knee flexion approximately 110 degrees, knee extension close to full STRENGTH: 4 out of 5 TESTING: No laxity of the knee NEUROVASCULAR: Neurovascularly intact, negative Homans GAIT: Abnormal ambulating with walker SKIN: Well healed surgical incision ASSESSMENT/PLAN Problem List Items Addressed This Visit S/P total knee arthroplasty, right - Primary Assessment & Plan Right total knee arthroplasty, post-operative recovery Post-operative recovery following right total knee arthroplasty is progressing. The knee is almost completely straight, and she is able to bend it well. Concerns were raised about aggressive physicaltherapy practices at [facility], which were causing discomfort. The focus should be on active motion rather than passive motion to improve muscle function and recovery. - Check availability for physical therapy at [facility]. - If unavailable, consider weekly sessions with the therapist in the provider's office. - Encourage active motion exercises at home to improve knee function. - Maintain regular follow-up appointments with the provider. Acute nerve pain following right knee arthroplasty Experiencing acute nerve pain post-operatively, particularly after activities such as showering. Pain is described as shooting and pinching, which is considered normal during the recovery phase as the surgical site heals and stretches. - Reassure that the pain is a normal part of the healing process. Scribe Attestation: Bernie Sandhu CMA acted as a scribe and transcribed components of the current encounter under the direction of the Attending Provider. I have not been involved in providing any clinical treatments or patient care. Electronically Signed, Bernie Lu CMA I, James Rollins, MD attest that I have examined the above patient. I have dictated the exam, diagnosis, and plan to the scribe listed above to be transcribed into this document. I have supplemented the above documentation as warranted. I attest that I have reviewed the above documentation in its entirety and concur. Electronically Signed, Lg Chu MD 03/15/2025 11:05 AM EDT documented in this encounter Miscellaneous Notes * Addendum Note - Latasha Reddy - 03/15/2025 10:00 AM EDTAddended by: LATASHA REDDY on: 03/15/2025 04:28 PM Modules accepted: Orders documented in this encounter Plan of Treatment Upcoming Encounters Date Type Department Care Team (Late st Contact Info) Description 04/16/2025 2:00 PM EDT Office Visit [facility] - [address] [phone] Lg Chu MD [address] [place] [phone] Scheduled Referrals Name Type Priority Associated Diagnoses Orde r Schedule AMB REFERRAL TO PHYSICAL THERAPY EVALUATE, TREAT AND PLAN OF CARE Outpatient Referral Routine S/P total knee arthroplasty, right Expected: 03/15/2025, Expires: 03/15/2026 documented as of this encounter Visit Diagnoses Diagnosis S/P total knee arthroplasty, right- Primary documented in this encounter Care Teams Lan Analyst Relationship Specialty Start Date End Date Provider, Not In System [place] PCP - General 01/08/25 documented as of this encounter
--- OUTSIDE RECORDS SUMMARY | 2025-03-19 15:00 | XMS_ITS | Encounter Summary ---
Author Organization [employer] ([place], [place], [place], [place]) Address [address] [place] [address] Care Team Providers Care Data Compiler Name Role Phone Provider, Not In System Primary Care Provider Un available Reason for Visit * Consultation (Routine) - Authorized Specialty Diagnoses / Procedures Referred By Contac t Referred To Contact Physical Therapy Diagnoses S/P total knee arthroplasty, right Lg Chu MD [address] [place] [phone] Phone: tel: fax: [facility] OP Physical Therapy [address] [place] [phone] Phone: tel: fax: Referral ID Status Reason Start Date Expiration Date Visits Requested Visits Authorized [id number] Authorized Specialty Services Required 03/15/2025 06/27/2025 6 6 Encounter Details Date Type Department Care Team (Late st Contact Info) Description 03/19/2025 3:00 PM EDT Evaluation [facility] OP Physical Therapy [address] [place] [phone] Lg Chu MD [address] [place] [phone] Yue Giron, PT S/P total knee arthroplasty, right (Primary Dx) [...] Date Issac rded Speak language other than [place] at home Not on file 07/17/2023 Want [...] on file documented as of this encounter Progress Notes * Yue Giron, PT - 03/19/2025 3:00 PM EDT Images from the original note were not included. Outpatient Therapy Services Physical Therapy Evaluation Date of Service: 03/19/2025 Time In: 1505 Time Out: 1550 Patient name: Aracelis Adler : 02/24/1980, 45 y.o. Medical Diagnosis: 1. S/P total knee arthroplasty, right Referring Provider: Lg Chu MD Payor: MEDICAID - MEDICAID [facility] / Plan: [facility] [place] / Product Type: *No Producttype* / Date of Onset: 03/15/2025 Visit # / Total Visits: Past Medical History: Diagnosis Date ADHD (attention deficit hyperactivity disorder) 06/28/1986 Ankylosing spondylitis ([facility]) Anxiety 06/28/1995 Arthritis Autoimmune disease ([facility]) POSSIBLE-BEING INVESTIGATED Carpal tunnel syndrome Depression 06/28/1995 Eczema Fractures Obesity Osteoarthritis Scoliosis TBI (traumatic brain injury) ([facility]) 2016 Vertigo Past Surgical History: Procedure Laterality Date FRACTURE SURGERY Broken jaw and broken nose INJECTION,MAJOR JOINT KNEES LASIK Bilateral 2019 MAKOPLASTY,KNEE Right 01/17/2025 Procedure: ARTHROPLASTY, KNEE, ROBOT-ASSISTED, POSSIBLE PARTIAL KNEE ARTHROPLASTY; Surgeon: Lg Schwartz MD; Location: [facility]; Service: Orthopedic Surgery; Laterality: Right; Right knee unicompartmental knee arthroplasty versus total knee arthroplasty, robot assisted SEPTOPLASTY Contraindications/Precautions: Post-op R TKA (01/17/2025) Current Outpatient Medications Medication Instructions cetirizine (ZYRTEC) 10 mg, Daily Concerta 54 mg, Daily DULoxetine (CYMBALTA) 60 MG capsule 2 capsules, Daily gabapentin (NEURONTIN) 300 mg, 4 times daily lamoTRIgine (LAMICTAL) 25 mg, Daily lifitegrast (Xiidra) 5 % Dpet No dose, route, or frequency recorded. mirtazapine (REMERON) 15 mg, Every Night tiZANidine (ZANAFLEX) 4 MG tablet 1 tablet, 2 times daily Allergies Allergen Reactions Gluten Protein Diarrhea and Swelling Previous Physical Therapy: Received physical therapy at different clinic for knee replacement performed on 01/17/2025 Prior Functional Status: Independent Personal Information Resides with: Significant other Signs of Abuse: No SUBJECTIVE Patient reports to the outpatient clinic 8 weeks s/p R TKA. Patient has been attending physical therapy 2x per week at a different clinic since her surgery, up until about one week ago. She reports that she was unhappy with the way that her rehabilitation was going, and overall uncomfortable with the approach that was being taken in order to improve her knee extension. She notes that during her sessions she would have extreme discomfort with therapist overpressure into maximal knee extension, typically when performing a heel prop. For these reasons, she decided that it would be best for her recovery if she proceeded with physical therapy services at a different clinic. As of today, she reports that her pain at rest and with her typical daily activities has been low and manageable. However, during long periods of activity such as housework, she does experience a sharp pain along the medial joint line that typically requires a seated rest break to recover from. She is still unable to walk for long periods of time, however she does note that she was unable to walk for longer than 1/2 mile for years leading up to her replacement. She also states that she knows she is still lacking motion in to both flexion, and extension, as she has not performed many of her exercises over the past few weeks. Her primary goal for attending physical therapy is to improve her knee flexion and extension to be symmetrical with her LLE, and allow her to get back to her preferred recreational activities such as hiking and yoga. Pain Current: 2/10 Least: 10 Worst: 04/06 Description: Aching, Catching, and Shooting Aggravating factors: extension manual therapy/manipulation, getting out of the shower Relieving factors: Stretching, working out muscle tension OBJECTIVE Test/Measurements Knee ROM (degrees) LEFT RIGHT Flexion 120 91 Extension 0 Lacking 2 Strength Knee LEFT RIGHT Flexion 4/5 4-/5 Extension 4/5 4-/5 Strength Hip LEFT RIGHT Flexion 4/5 4/5 Abduction 3+/5 3+/5 ADDuction 4/5 4/5 Gait Weight bearing status: Full Assistive Device Used: None at this Time Assist Level: Independent Deviation Pattern: Right lower extremity antalgic Trunk Deviations: R lateral trunk lean during stance Knee/Foot Compensations: Reduced Right TKE Sequencing: Step Through Gait Base of Support: Normal Functional Outcome Measure: LEFS: 32/80 Other: Palpation: TTP over medial joint line- coincides with focal increased swelling Patellar Mobility: R- limited superior and inferior translation of the patella INTERVENTIONS Therapeutic Exercise Sets x Repetitions Weight/Resistance Cues/Comments HEP PROGRESS NOTE due 04/18/2025 Seated Heel Slides Add next visit [] Stagger Stance STS Add next visit [] Squat to chair- TB resistance at knee Add next visit [] Step up +TKE Add next visit [] [] [] [] [] Total Time (min): 0 Manual Therapy- x10' Soft Tissue Massage- focal soft tissue work to decrease swelling along medial and lateral joint lines PROM with therapist overpressure into flexion + long axis joint distraction at edge of bed Total Treatment (min): 40 Timed Treatment (min): Physical Therapy Evaluation: Moderate Complexity (13919) Manual Therapy (07413) 8 minutes ASSESSMENT Patient is a pleasant 45 year old female who reports to the outpatient clinic 8 weeks s/p R TKA. Patient has been attending regular physical therapy at a different clinic since her surgery, but was unhappy with the progression of her treatment and the approach to her rehabilitation. For this reason, she made the decision to continue her recovery from surgery elsewhere, and has not attended physical therapy for at least one week prior to initial evaluation today. Patient reports stiffness in theknee and limitations in range of motion into both flexion and extension, as well as some pain alongthe lateral joint line with prolonged periods of standing and walking. Objective testing performed t pietro reveled decrements in bilateral knee and hip musculature strength, as well as persisting deficits in both flexion and extension range of motion, with flexion more limited than extension. Patientwas able to achieve 110 degrees of knee flexion during her last follow up with surgeon, however, today she was only able to achieve 90 degrees with some assistance from her UE. Therapist was able to achieve increased degrees of knee flexion with PROM, but patient did not tolerate much more than ~95degrees passively. Patient was also found to have increased swelling along the lateral joint line, consistent with here she has been experiencing acute pain. This pain is exacerbated with DL squat totable, during which physical therapist observed bilateral genu valgum. Due to the the persisting deficits detailed above, patient will benefit from skilled physical therapy in order to decrease pain with activity, improve RLE strength and ROM, and allow her to participate in recreational physical activities, and return to her pre-morbid level of function. Overall rehab potential is Good. The patient was educated and verbalized understanding regarding their diagnosis, prognosis, and plan of care. The patient demonstrates a good understanding of the risks, benefits, precautions/contraindications, & prognosis of their skilled rehabilitation episodeof care. Barriers to Rehab: No Learning Barriers PLAN OF CARE Aracelis Adler requires skilled physical therapy services to address the below stated problems/goals, using Therapeutic Exercise (56265), Therapeutic Activity (76622), Gait Training (86024), Manual Therapy (80718), Neuromuscular Re- education (79132), and Self Care/Home Mgmt (88564). Skilled intervention required to decrease pain, increase range of motion, increase strength, improve motor control, improve functional mobility, and return to premorbid state. Prognosis: Good Problems: Pain Decreased sensation Decreased ROM Decreased strength Decreased functional mobility Patient Goal: Decreased Pain Decrease Swelling Improve Mobility Improve Strength Improve Ambulation Resume ADL's w/o Symptoms Return to Prior Activity Level Learn Home Exercise Program Patient Education: Eval results/Plan of Care, Body mechanics, HEP, and Handouts provided Level Vial Inspector Goals: Patient will improve R knee range of motion into flexion to be at least 120 degrees, in order to achieve symmetry bilaterally, and decrease compensations during ambulation and extra stress on the LLE. Patient will improve score on the LEFS to be >/= 50/80 in order to demonstrate clinically meaningful improvements in her ability to participate in functional activities such as independently cleaning her house. Patient will be able to participate in a 30 minute yoga session, with necessary modifications, and pain less than 1/10 in order to allow her to return to her preferred recreational activities and improve her QOL. Patient will improve bilateral LE MMT to be alteast 4/5 in all planes of motion in order to demonstrate clinically meaningful improvements in LE strength and allow her to walk up the stairs without excess reliance on the BUE. Patient will be independent with discharge home exercise program to improve household ADL's and recreational activity. Plan of Care Certification Date: 03/19/2025 - 06/17/2025 Frequency/Duration: 1x/Week for 12 weeks Electronically signed by: Yue Giron PT 03/19/2025, 3:01 PM EDT This therapy plan of care has been sent to the referring provider for awareness and their review. Cosigned by Marty Saenz PT at 03/21/2025 2:01 PM EDT documented in this encounter Plan of Treatment Upcoming Encounters Date Type Department Care Team (Late st Contact Info) Description 04/16/2025 2:00 PM EDT Office Visit [facility] Orth[facility] - [address] [phone] Lg Chu MD [address] [place] [phone] documented as of this encounter Visit Diagnoses Diagnosis S/P total knee arthroplasty, right- Primary documented in this encounter Care Teams Data Compiler Relationship Specialty Start Date End Date Provider, Not In System [place] PCP - General 01/08/25 documented as of this encounter
--- OUTSIDE RECORDS SUMMARY | 2025-03-25 15:32 | XMS_ITS | Encounter Summary ---
Author Organization [employer] ([place], [place], [place], [place]) Address [address] [place] [address] Care Team Providers Care Pharmacy Intake Coordinator Name Role Phone Provider, Not In System Primary Care Provider Un available Reason for Visit * Reason Onset Date Comments Patient called 03/15/2025 Encounter Details Date Type Department Care Team (Late st Contact Info) Description 03/15/2025 Telephone [facility] Orthopedics - [address] [phone] Lg Chu MD [address] [place] [address] Patient called Social History Tobacco Use Types Packs/Day Years [...] Date Issac rded Speak language other than Gambian at home Not on file 07/17/2023 Want [...] encounter Miscellaneous Notes * Telephone Encounter - Erum Reddy - 03/15/2025 4:28 PM EDT Patient's boyfriend called reporting that patient would like to go to PT in [place]. Per office note: patient to call back if she wants to go to [facility] PT near provider's office. New order entered into office visit encounter to send order to [facility] OP PT [place]. I explained to Patient's boyfriend that order has been sent over and they should receive a call from PT. Patient's boyfriend verbalized understanding. All questions answered documented in this encounter Plan of Treatment Upcoming Encounters Date Type Department Care Team (Late st Contact Info) Description 04/16/2025 2:00 PM EDT Office Visit [facility] Orthopedics - [address] [phone] Lg Chu MD [address] [place] [address] documented as of this encounter Visit Diagnoses Not on filedocumented in this encounter Care Teams Pharmacy Intake Coordinator Relationship Specialty Start Date End Date Provider, Not In System [place] PCP - General 01/08/25 documented as of this encounter
--- OUTSIDE RECORDS SUMMARY | 2025-03-25 15:32 | XMS_ITS | Encounter Summary ---
Author Organization [employer] ([place], [place], [place], [place]) Address [address] [place] [address] Care Team Providers Care Look Out Tower Fire Watcher Name Role Phone Provider, Not In System Primary Care Provider Un available Encounter Details Date Type Department Care Team (Late st Contact Info) Description 03/13/2025 Telephone [facility] Orthopedics - [address] [phone] Lg Chu MD [address] [place] [address] Social History Tobacco Use Types Packs/Day Years [...] Date Issac rded Speak language other than Omani at home Not on file 07/17/2023 Want [...] Miscellaneous Notes * Telephone Encounter - Erum Aguero Barry - 03/14/2025 2:24 PM EDT Appointment made for tomorrow at 10 am * Telephone Encounter - Erum Aguero Barry - 03/13/2025 4:22 PM EDT Patient reports that [facility] PT is causing severe pain after getting on Zero knee and they push on her knee. Patient reports that she almost black out from the pain. Patient reports that she hastalked to the owners of PT and they do not understand the severity of her pain during those stretches. Patient reports that she tried telling PT yesterday not to do that stretch and she feels like she is not being heard. Patient reports that her pain is so severe that she has almost had panic attacks and she is concerned that she will have a heart attack from the pain. documented in this encounter Plan of Treatment Upcoming Encounters Date Type Department Care Team (Late st Contact Info) Description 04/16/2025 2:00 PM EDT Office Visit [facility] Orthopedics - [address] [phone] Lg Chu MD [address] [place] [address] documented as of this encounter Visit Diagnoses Not on filedocumented in this encounter Care Teams Look Out Tower Fire Watcher Relationship Specialty Start Date End Date Provider, Not In System [place] PCP - General 01/08/25 documented as of this encounter
--- OUTSIDE RECORDS SUMMARY | 2025-03-25 15:32 | XMS_ITS | Encounter Summary ---
Author Organization [employer] ([place], [place], [place], [place]) Address [address] [place] [address] Care Team Providers Care Box Office Agent Name Role Phone Provider, Not In System Primary Care Provider Un available Encounter Details Date Type Department Care Team (Latest Contact Info) Description 03/19/2025 Travel Social History Tobacco Use Types Packs/Day Years [...] Date Issac rded Speak language other than [place] Citizen at home Not on file 07/17/2023 Want [...] Description 04/16/2025 2:00 PM EDT Office Visit [facility] Orthopedics - [address] [phone] Lg Chu MD [address] [place] [address] documented as of this encounter Visit Diagnoses Not on filedocumented in this encounter Care Teams Box Office Agent Relationship Specialty Start Date End Date Provider, Not In System [place] PCP - General 01/08/25 documented as of this encounter
--- OUTSIDE RECORDS SUMMARY | 2025-03-25 15:32 | XMS_ITS | Encounter Summary ---
Author Organization [employer] ([place], [place], [place], [place]) Address [address] [place] [address] Care Team Providers Care Wireless Manager Name Role Phone Provider, Not In System Primary Care Provider Un available Reason for Visit * Reason Onset Date Comments Medication Refill 03/16/2025 Encounter Details Date Type Department Care Team (Late st Contact Info) Description 03/16/2025 Telephone [facility] Orthopedics - [address] [phone] Lg Chu MD [address] [place] [address] Medication Refill Social History Tobacco Use Types Packs/Day Years [...] Date Issac rded Speak language other than Uzbek at home Not on file 07/17/2023 Want [...] encounter Miscellaneous Notes * Telephone Encounter - Sally Palacios CMA - 03/16/2025 12:50 PM EDT Type of Surgery / Fracture: RTKA Date of Surgery / Fracture: 01-17-25 Medication(s) Requested: Hydrocodone Rafi significant other left msg that she needs different pain meds - left his number for call back [phone] 03-16-25 at 858am Took Oxycodone and Tramadol post op # of Previous Refills: 2 post op Pharmacy: [facility] Called patient to clarify what type of different medication she was requesting. She noted she didwell with hydrocodone after neck issues. Discussed with her that she has met the protocol for post op pain meds and it would be unlikely that a narcotic would be prescribed She states she was not opposed to an NSAID or whatever is indicated Confirmed no medication allergies and not currently taking an NSAID During this call she said that she wanted to change her PT facility to [facility] PT at [place] - she cannot get an appt with [facility] this week or next Sent message to Vipul in PT to contact pt for appt with PT documented in this encounter Plan of Treatment Upcoming Encounters Date Type Department Care Team (Late st Contact Info) Description 04/16/2025 2:00 PM EDT Office Visit [facility] Orthopedics - [address] [phone] Lg Chu MD [address] [place] [address] documented as of this encounter Visit Diagnoses Not on filedocumented in this encounter Care Teams Wireless Manager Relationship Specialty Start Date End Date Provider, Not In System [place] PCP - General 01/08/25 documented as of this encounter
--- OUTSIDE RECORDS SUMMARY | 2025-03-25 15:33 | XMS_ITS | Encounter Summary ---
Author Organization [employer] ([place], [place], [place], [place]) Address [address] [place] [address] Care Team Providers Care Jewelry Cutter Name Role Phone Provider, Not In System Primary Care Provider Un available Reason for Visit * Reason Onset Date Comments Medication Refill 01/31/2025 Encounter Details Date Type Department Care Team (Late st Contact Info) Description 01/31/2025 Telephone [facility] Orthopedics - [address] [phone] Marci Collins MD [address] [place] [address] Medication Refill Social History Tobacco Use [...] Date Issac rded Speak language other than Namibian at home Not on file 07/17/2023 Want [...] as of this encounter Miscellaneous Notes * Addendum Note - Marci Collins MD - 01/31/2025 3:06 PM EDTAddended by: MARCI COLLINS on: 01/31/2025 03:06 PM Modules accepted: Orders * Telephone Encounter - Sally Palacios CMA - 01/31/2025 9:42 AM EDT Type of Surgery / Fracture: TKA Date of Surgery / Fracture: 01-17-25 Medication(s) Requested: OXYCODONE / TRAMADOL # of Previous Refills: 1 POST OP Pharmacy: [facility] documented in this encounter Plan of Treatment Upcoming Encounters Date Type Department Care Team (Late st Contact Info) Description 04/16/2025 2:00 PM EDT Office Visit [facility] Orthopedics - [address] [phone] Marci Collins MD [address] [place] [address] documented as of this encounter Visit Diagnoses Not on filedocumented in this encounter Care Teams Jewelry Cutter Relationship Specialty Start Date End Date Provider, Not In System [place] PCP - General 01/08/25 documented as of this encounter
--- OUTSIDE RECORDS SUMMARY | 2025-03-25 15:33 | XMS_ITS | Encounter Summary ---
Author Organization [employer] ([place], [place], [place], [place]) Address [address] [place] [address] Care Team Providers Care Wig Comber Name Role Phone Provider, Not In System Primary Care Provider Un available Reason for Visit * Reason Onset Date Comments OTHER 03/22/2025 Encounter Details Date Type Department Care Team (Late st Contact Info) Description 03/22/2025 Telephone [facility] Orthopedics - [address] [phone] Lg Chu MD [address] [place] [address] OTHER Social History Tobacco Use Types Packs/Day Years [...] encounter Miscellaneous Notes * Telephone Encounter - Olga Griffin - 03/22/2025 2:49 PM EDTSummary: Patient using foul laungage Patient called the office and stated she was seen at the Hospital last night due to going into cardiac arrest from the stress of our office and per Dr. Chu. I was confused by what she said and said you went into cardiac arrest here at the office? She then replied No, I went to the [facility] because my heart rate was up to 280 because of the stress of your office and Dr. Chu. She then went on to use some foul language and had said Dr. Chu does not give a F. She apologized for using the foul language but was just stating that was the truth. She asked for me to send her new PT form to [facility] Physical therapy. I will Fax that over to the fax number she gave me over the phone. documented in this encounter Plan of Treatment Upcoming Encounters Date Type Department Care Team (Late st Contact Info) Description 04/16/2025 2:00 PM EDT Office Visit [facility] Orthopedics - [address] [phone] Lg Chu MD [address] [place] [address] documented as of this encounter Visit Diagnoses Not on filedocumented in this encounter Care Teams Wig Comber Relationship Specialty Start Date End Date Provider, Not In System [place] PCP - General 01/08/25 documented as of this encounter
--- OUTSIDE RECORDS SUMMARY | 2025-03-25 15:33 | XMS_ITS ---
Author Name [employer], [employer] Address [address] [place] [address] Oncology an d Hematology Address [address] [place] [address] Allergies and Adverse Reactions Plan Reason for Visit Encounters Diagnostic Results Medications Problems Vital Signs Notes Section
--- OUTSIDE RECORDS SUMMARY | 2025-03-25 15:33 | XMS_ITS | Encounter Summary ---
Author Organization [place] [address] Care Team Providers Care Switchboard Operator Helper Name Role Phone Cira Rasheed DO Primary Care Provide r Encounter Details Date Type Department Care Team (Latest Contact Info) Description 01/03/2025 Results Follow-Up [facility] [address] [place] [address] Cira Rasheed DO [address] [place] [address] COMPREHENSIVE METABOLIC PANEL, LIPID SCREEN, [...] 3:15 PM EST Office Visit [facility] [address] [place] [address] Roxie Iyer, BOAT CANVAS MAKER AND INSTALLER [address] [place] [address] documented as of this encounter Goals Goal Patient Goal Type Associated Problems Recent Progress Patient-Stated? Author Maintain a healthy diet, exercise regularly and maintain an ideal body weight General No Jasper Mars MA documented as of this encounter Visit Diagnoses Not on filedocumented in this encounter Care Teams Switchboard Operator Helper Relationship Specialty Start Date End Date Cira Rasheed DO [address] [place] [address] PCP - General Family Medicine 01/01/25 documented as of this encounter
--- OUTSIDE RECORDS SUMMARY | 2025-03-25 15:33 | XMS_ITS | Clinical Summary ---
Author Organization [facility] Address [address] [place] [address] Care Team Providers Care Electrical Electronics Engineers Name Role Phone Unavailable Primary Care Provider [...] 02/24/2009 [facility]-Cervical Cancer Screening 02/25/2012 [facility]-HPV/Cotest 02/25/2012 [id number] Vaccine (1 - 20 24-25 season) 2025 [...]
--- OUTSIDE RECORDS SUMMARY | 2025-03-25 15:33 | XMS_ITS | Encounter Summary ---
Author Organization [place] [address] Care Team Providers Care Mud Tank Operator Name Role Phone Cira Rasheed DO Primary Care Provide r Reason for Visit * Reason Onset Date Comments Appointment Needed 12/19/2024 New patient p re op ??? Encounter Details Date Type Department Care Team (Late st Contact Info) Description 12/19/2024 Telephone [facility] [address] [place] [address] Cira Rasheed, [address] [place] [address] Appointment Needed (New patient pre [...] EST Office Visit [facility] [address] [place] [address] Roxie Iyer, SHOP SUPERVISOR [address] [place] [address] documented as of this encounter Goals Goal Patient Goal Type Associated Problems Recent Progress Patient-Stated? Author Maintain a healthy diet, exercise regularly and maintain an ideal body weight General No Jasper Mars MA documented as of this encounter Visit Diagnoses Not on filedocumented in this encounter Care Teams Mud Tank Operator Relationship Specialty Start Date End Date Cira Rasheed DO [address] [place] [phone] PCP - General Family Medicine 01/01/25 documented as of this encounter
--- OUTSIDE RECORDS SUMMARY | 2025-03-25 15:34 | XMS_ITS | Clinical Summary ---
Author Organization [employer] ([place], [place], [place], [place]) Address [address] [place] [address] Care Team Providers Care Tool Rental Technician Name Role Phone Provider, Not In System Primary Care Provider Un available Allergies Active Allergy Reactions Criticality Noted Date Comments Gluten Protein Diarrhea,Swelling High 03/08/2023 Medications cetirizine (ZyrTEC) 10 MG tablet Take 1 tablet (10 mg total) by mouth daily. 03/04/2023 Active DULoxetine (CYMBALTA) 60 MG capsule Take 2 capsules (120 mg total) by mouth daily. Active gabapentin (NEURONTIN) 300 MG capsule Take 1 capsule (300 mg total) by mouth 4 (four) times daily. Active lifitegrast (Xiidra) 5 % Dpet Active mirtazapine (REMERON) 15 MG tablet Take 1 tablet (15 mg total) by mouth nightly. Active Concerta 54 mg CR tablet Take 1 tablet (54 mg total) by mouth daily. Active tiZANidine (ZANAFLEX) 4 MG tablet Take 1 tablet (4 mg total) by mouth 2 (two) times daily. 12/23/2023 Active lamoTRIgine (LaMICtal) 25 MG tablet Take 1 tablet (25 mg total) by mouth daily. Active celecoxib (CeleBREX) 200 MG capsuleIndicati ons:S/P total knee arthroplasty, right Take 1 capsule (200 mg total) by mouth daily for 30 days Look-alike/ Sound-alike medication. 30 capsule 03/20/2025 04/19/20 25 Active Active Problems Problem Noted Date Diagnosed Date S/P total knee arthroplasty, right 02/01/2025 Arthritis of right knee 12/18/2024 Arthritis of left knee 12/18/2024 Primary osteoarthritis of right knee 03/08/2023 Other chronic pain 03/08/2023 Attention deficit hyperactiv ity disorder (ADHD), combined type 03/08/2023 Anxiety and depression 03/08/2023 PTSD (post-traumatic stress disorder) 03/08/2023 Encounters Date Type Department Care Team Description 03/22/[address] [address] Lg Chu MD OTHER 03/20/2025 Telephone [place] [phone] Lg Chu MD requesting something for pain 03/19/2025 3:00 PM EDT Evaluation [facility] OP Physical Therapy [address] [place], [place] [phone] Lg Chu MD Ladd, Yue Callahan, PT S/P total knee arthroplasty, right (Primary Dx) 03/19/2025 Travel 03/16/[address] [address] Lg Chu MD Medication Refill 03/15/2025 10:00 AM EDT Office Visit [address] [address] Lg Chu MD S/P total knee arthroplasty, right (Primary Dx) 03/15/[address] [address] Lg Chu MD Patient called 03/13/[address] [address] Lg Chu MD 03/05/2025 2:00 PM EDT Office Visit [address] [address] Lg Chu MD S/P total knee arthroplasty, right (Primary Dx) 02/01/2025 10:25 AM EDT Ancillary Procedure [address] [address] Lg Chu MD S/P total knee arthroplasty, right 02/01/2025 10:00 AM EDT Office Visit [address] [address] Lg Chu MD S/P total knee arthroplasty, right (Primary Dx) 01/31/[address] [address] Lg Chu MD Medication Refill 01/23/2025 Orders Only [facility] Operating Room [address] [place] [address] Lg Chu MD Primary osteoarthritis of right knee 01/19/[address] [address] Lg Chu MD OTHER 01/19/[address] [address] Lg Chu MD Advice Only (Pt had rt knee uni vs TKA on 01/17, her spouse called in stating that at the time of the sx they did not take the prescription of gabapentin due to her already receiving it from her PCP. They went to get a refill today, but the PCP will not give her another refill. She was wondering if you would be able to call the gabapentin into her pharmacy today. She uses the [facility], they close at 6:30 today and will be closed all weekend. ) 01/17/2025 1:56 PM EDT Anesthesia Event [facility] Operating Room [address] [place] [address] Herman Flynn CRNA Qureshi, Nicci Valadez, 01/17/2025 1:25 PM EDT - 01/17/2025 3:18 PM EDT Surgery [facility] Operating Room [address] [place], [place] [phone] Lg Chu MD ARTHROPLASTY, KNEE, ROBOT-ASSISTED, POSSIBLE PARTIAL KNEE ARTHROPLASTY 01/17/2025 11:20 AM EDT - 01/17/2025 6:57 PM EDT Hospital Encounter [facility] Operating Room [address] [place], [place] [phone] Lg Chu MD Primary osteoarthritis of right knee (Primary Dx) Discharge Disposition: Home or Self Care 01/17/2025 Travel 01/08/2025 6:00 PM EDT Lab Patient Walk-In [facility] Lab [address] [place], [place] [phone] Lg Chu MD Primary osteoarthritis of right knee; Pre-op testing 01/08/2025 2:30 PM EDT - 01/08/2025 11:59 PM EDT Hospital Encounter [facility] Preadmissions Testing [address] [place], [place] [phone] Lg Chu MD Discharge Disposition: Home or Self Care 01/08/2025 1:45 PM EDT - 01/08/2025 2:29 PM EDT Hospital Encounter [facility] Respiratory Care [address] [place], [place] [phone] Lg Chu MD Primary osteoarthritis of right knee; Pre-op testing Discharge Disposition: Home or Self Care 01/08/2025 1:45 PM EDT Hospital Encounter [facility] Diagnostic Imaging [address] [place], [place] [phone] Lg Chu MD Primary osteoarthritis of right knee; Pre-op testing Discharge Disposition: Home or Self Care 01/08/2025 1:19 PM EDT - 01/08/2025 1:44 PM EDT Hospital Encounter [facility] CT Imaging [address] [place] [address] Lg Chu MD Arthritis of right knee Discharge Disposition: Home or Self Care 01/08/2025 Travel 12/28/2024 Telephone [facility] Orthopedics - [place] [address] [place] [address] Lg Chu MD Procedure from Last 3 Months Family History Medical History Relation Name Comments Depression Father Jarad Cancer Maternal Grandmother Raegan brain Arthritis Mother Ching Depression Mother Ching High blood pressure Mother Ching Hypertension Mother Ching Learning disabilities Mother Ching Lupus Mother Ching Mental illness Mother Ching Migraines Mother Ching Miscarriages / Stillbirths Mother Ching Osteoporosis Mother Ching Brain cancer Other Cancer Paternal Aunt Maral lung Early Paternal Grandfather Dangelo Heart attack Paternal Grandfather Dangelo Depression Sister Jeri Relation Name Status Comments Father Jarad Alive Maternal Grandmother Raegan Mother Ching Alive Other Paternal Aunt Maral Paternal Grandfather Dangelo Sister Jeri Alive Social History Tobacco Use Types Packs/Day [...] Date Issac rded Speak language other than American at home Not on file 07/17/2023 Want [...] Pulse 77 03/15/2025 10:34 AM EDT Temperature 36.2 C (97.1 F) 01/17/2025 3:20 PM EDT Respiratory Rate 18 03/15/2025 10:34 AM EDT Oxygen Saturation 95% 01/17/2025 6:11 PM EDT Inhaled Oxygen Concentration 100% 01/17/2025 3 :35 PM EDT Weight 122.5 kg (270 lb) 03/15/2025 10:34 AM EDT Height 175.3 cm (5' 9 ) 03/15/2025 10:34 AM EDT Body Mass Index 39.87 03/15/2025 10:34 AM EDT Plan of Treatment Upcoming Encounters Date Type Department Care Team (Late st Contact Info) Description 04/16/2025 2:00 PM EDT Office Visit [facility] Orthopedics - [address] [address] Lg Chu MD [address] [place] [address] Health Maintenance Due Date Last Done Comments HIV Screening 02/24/1997 Hepatitis C Screening 02/25/2000 Breast Cancer Screening 02/24/2022 Pap Smear 07/17/2023 07/17/2020 COVID-19 VACCINE (2024-2 6 season) 2025 06/18/2021, 11/02/2020, 10/12/2020 Influenza Vaccine (#1) 2025 03/31/2010 DTAP/TDAP/TD VACCINES (4 - T d or Tdap) 08/07/2025 08/07/2015, 04/28/2011, 02/25/2010 Tobacco Cessation Counseling and Screening (12+) 03/05/2026 03/05/2025 Lipid Panel 12/29/2027 12/28/2024, 03/29/2020 Pneumococcal Vaccine: 0-49 Years Aged Out No longer eligible b ased on patient's age to complete this topic Medical Devices Implanted Type Area Tar Heater Operator Device Identifier Shelf Expiration Date Model / Serial / Lot Comp Triathlon Tib Tritanium 5536-B-400 - [id number] Implanted:Qt y: 1 on 01/17/2025 by Lg Chu MD at [facility] TOTAL JOINT CONSTRUCT Right: Knee [employer] [id number] 09/28/2029 5536-B-40 0 / / [id number] Comp Fem P/A Cr Beaded Sz4 R 5517-F-402 - [id number] Implanted:Qt y: 1 on 01/17/2025 by Lg Chu MD at [facility] TOTAL JOINT CONSTRUCT Right: Knee [employer] [id number] 09/20/2029 5517-F-40 2 / / [id number] Patella Triath Asym Ti [id number] 5552-L-320 - [id number] Implanted:Qt y: 1 on 01/17/2025 by Lg Chu MD at [facility] TOTAL JOINT CONSTRUCT Right: Knee [employer] [id number] 09/25/2029 5552-L-32 0 / / [id number] Insrt Tib 4 12mm Kn Brng Cndrl 0131-F-161-E - [id number] Implanted:Qt y: 1 on 01/17/2025 by Lg Chu MD at [facility] TOTAL JOINT CONSTRUCT Right: Knee [employer] [id number] 09/01/2028 5531-G-41 2-E / / [id number] Explanted Type Area Tar Heater Operator Device Identifier Shelf Expiration Date Model / Serial / Lot Femoral Tibia Kit Chkpt [id number] - [id number] Explanted:Qty: 1 on 01/17/2025 at [facility] IMPLANTS Right: Knee [employer] 11/29/2029 [id number] / / [id number] Pin Bone 2p160wr Strl [id number] - [id number] Explanted:Qty: 1 on 01/17/2025 at [facility] IMPLANTS Right: Knee [employer] 10/03/2029 [id number] / / [id number] Pin Bone 3b825ug Strl [id number] - [id number] Explanted:Qty: 1 on 01/17/2025 at [facility] IMPLANTS Right: Knee [employer] 09/15/2029 [id number] / / [id number] Procedures Procedure Name Priority Date/Time Associated Diagnosis Comments XR KNEE 1 OR 2 VIEWS RIGHT Routine 02/01/2025 10:29 AM EDT S/P total knee arthroplasty, right AMB REFERRAL TO PHYSICAL THERAPY EVALUATE, TREAT AND PLAN OF CARE Routine 01/19/2025 2:03 PM EDT Primary osteoarthritis of right knee XR KNEE 1 OR 2 VIEWS RIGHT STAT 01/17/2025 3:45 PM EDT ANESTHESIA INTUBATION Routine 01/17/2025 2:02 PM EDT NE ARTHRP KNE CONDYLE&PLATU MEDIAL&LAT COMPARTMENTS 01/17/2025 1:55 PM EDT Primary osteoarthritis of right knee Case Notes 1100 TISSUE EXAM ([place] AR) AP Routine 01/17/2025 1 :34 PM EDT Primary osteoarthritis of right knee HC PERIPHERAL NERVE BLOCK SINGLE SHOT Routine 01/17/2025 12:46 PM EDT SCREEN, URINE STAT 01/17/2025 11:23 AM EDT FS_MODEL_IP_ECG 12-LEAD Routine 01/08/2025 2:05 PM EDT Primary osteoarthritis of right knee Pre-op testing URINALYSIS MICROSCOPIC Routine 01/08/2025 2:05 PM EDT Primary osteoarthritis of right knee Pre-op testing COMPREHENSIVE METABOLIC PANEL Routine 01/08/2025 2:05 PM EDT Primary osteoarthritis of right knee Pre-op testing CBC W/ AUTO DIFF Routine 01/08/2025 2:05 PM EDT Primary osteoarthritis of right knee Pre-op testing URINALYSIS, REFLEX MICROSCOPIC AND CULTURE IF INDICATED Routine 01/08/2025 2:05 PM EDT Primary osteoarthritis of right knee Pre-op testing MRSA SCREEN Routine 01/08/2025 2:05 PM EDT Primary osteoarthritis of right knee Pre-op testing XR CHEST PA AND LATERAL Routine 01/08/2025 1:53 PM EDT Primary osteoarthritis of right knee Pre-op testing CT LOWER EXTREMITY WITHOUT IV CONTRAST RIGHT Routine 01/08/2025 1:46 PM EDT Arthritis of right knee from Last 3 Months Results * XR knee 1 or 2 views right (02/01/2025 10:29 AM EDT) Only the most recent of2 resultswithin the time period is included. Anatomical Region Laterality Modality Thigh, Knee, Leg X-Ray Narrative 02/01/2025 11:20 AM EDT AP Lateral Right knee shows well fixed TKA in good alignment and no acute complications Lg Chu MD IMG DIAGNOSTIC IMAGING ORDERA BLES Final Result * AMB REFERRAL TO PHYSICAL THERAPY EVALUATE, TREAT AND PLAN OF CARE (01/19/2025 2:03 PM EDT) Lg Chu MD OUTPATIENT REFERRAL ORDERABLE S Final Result * AN SINGLE LUMEN INTUBATION (01/17/2025 2:02 PM EDT) Narrative Gia Cee CRNA - 01/17/2025 2:02 PM EDT Gia Cee CRNA 01/17/2025 2:12 PM Intubation Authorized by: Gia Cee CRNA Performed by: Gia Cee CRNA Date/Time: 01/17/2025 2:02 PM Urgency: elective Indications and Patient Condition Indications for airway management: anesthesia Spontaneous Ventilation: absent Sedation level: general anesthesia Preoxygenated: yes Patient position: sniffing MILS maintained throughout: yes Mask difficulty assessment: 0 - not attempted Final Airway Details Final airway type: supraglottic airway Size: 4 Number of attempts at approach: 1 [facility] ORDERABLES Final Result * Tissue Exam (01/17/2025 1:34 PM EDT) AP RESULT See Note: [facility] Comment: [facility] [address] [place] [address] or [phone] René Kimball M.D., Reinforcing Metal Worker PATIENT NAME LABORATORY NO. [id number]ER [id number] AGE SEX SSN CLIENT REF # [place] [id number] 02/24/1980 F [id number] DONTAE REQUESTING [employer] [place] [address] DATE COLLECTED DATE RECEIVED DATE REPORTED 01/17/2025 01/17/2025 01/18/2025 DIAGNOSIS: BONE FRAGMENTS, GROSS ONLY, RIGHT KNEE: Changes consistent with osteoarthritis RLL/sdl CLINICAL HISTORY: Unilateral primary osteoarthritis, right knee SPECIMENS RECEIVED: BONE FRAGMENTS, GROSS ONLY, RIGHT KNEE Professional interpretation rendered by René Kimball M.D., F.C.A.P. at [facility], [address] [place] [address]. GROSS DESCRIPTION: Specimen received in formalin labeled bone right knee and consists of multiple fragmented portions of white-crooks semifirm to firm osteocartilaginous tissue including portions of the tibial plateau and femoral condyles measuring 7.5 x 7.0 x 5.0 cm in aggregate. The articular surfaces are crooks and glistening with focal areas of roughened granularity and focal areas of eburnation. No sections are submitted. JTM/RLL REVIEWED, DIAGNOSED AND ELECTRONICALLY SIGNED BY: René Kimball M.D., F.C.A.P. CPT CODES: [id number] Tissue STRUCTURE OF RIGHT KNEE REGION / Unknown 01/17/2025 1:34 PM EDT Lg Chu MD PATHOLOGY/CYTOLOGY ORDERABLES Final Result [facility] [address] [place] [address] * HC PERIPHERAL NERVE BLOCK SINGLE SHOT (01/17/2025 12:46 PM EDT) Nicci Estrada DO - 01/17/2025 12:46 PM EDT Nicci Singh DO 01/17/2025 12:59 PM Peripheral Nerve Block Authorized by: Nicci Singh DO Performed by: Nicci Singh DO Patient location during procedure: pre-op Start time: 01/17/2025 12:46 PM End time: 01/17/2025 12:50 PM Reason for block: at surgeon's request and post-op pain management Preanesthetic Checklist Completed: patient identified, IV checked, site marked, risks and benefits discussed, surgical consent, monitors and equipment checked, pre-op evaluation and timeout performed Peripheral Block Patient position: supine Prep: ChloraPrep Patient monitoring: heart rate, court recording monitor and continuous pulse ox Block type: adductor canal Laterality: right Injection technique: single-shot Guidance: ultrasound guided Needle Needle type: short-bevel Needle gauge: 20 G Needle length: 10 cm Needle localization: ultrasound guidance Test dose: negative Medications Administered midazolam (VERSED) injection 2 mg/2 mL - intravenous 2 mg - 01/17/2025 12:46:00 PM ropivacaine PF (NAROPIN) injection 0.5 % - perineural 30 mL - 01/17/2025 12:46:00 PM Assessment Injection assessment: negative aspiration for heme, no paresthesia on injection, incremental injection and local visualized surrounding nerve on ultrasound Paresthesia pain: none Heart rate change: no Slow fractionated injection: yes us Nicci Singh DO ANESTHESIA ORDERABLES Fin al Result * Screen, urine (01/17/2025 11:23 AM EDT) Preg Test, Ur Negative Negative, Inconclusive 01/17/2025 11:40 AM EDT [facility] Urine URINE SPECIMEN COLLECTION, CLEAN CATCH / Unknown 01/17/2025 11:23 AM EDT 01/17/2025 11:34 AM EDT us Lg Chu MD URINE ORDERABLES Final Result Performing Organization Address City/[facility]/ZIP Co de Phone Number [facility] [address] [phone] * ECG 12 lead (01/08/2025 2:05 PM EDT) VENTRICULAR RATE EKG/MIN 82 BPM GE MUSE ATRIAL RATE (MCT) 82 BPM GE MUSE NE Interval 146 ms GE MUSE QRS-INTERVAL (MSEC) 84 ms GE MUSE QT Interval 362 ms GE MUSE QTC Interval 422 ms GE MUSE P [place] 63 degrees GE MUSE R AXIS (MCT) 43 degrees GE MUSE T Wave [place] 47 degrees GE MUSE [place] Diagnosis Normal sinus rhythm Normal ECG No previous ECGs available Confirmed by Roodlfo MAGANA RICHARD ([id number]) on 01/08/2025 3:36:19 PM GE MUSE 01/08/2025 2:05 PM EDT 01/08/2025 3:36 PM EDT Lg Chu MD ECG ORDERABLES Final Result Performing Organization Address [facility] Co de Phone Number GE MUSE * (ABNORMAL) CBC with automated diff (01/08/2025 2:05 PM EDT) Pathologist [facility] [place] WBC 6.7 4.8 - 10.8 K/ L 01/08/2025 2:22 PM EDT [facility] RBC 4.83 3.50 - 5.20 M/ L 01/08/2025 2:22 PM EDT [facility] Hemoglobin 13.8 11.7 - 15.8 GM/DL 01/08/2025 2:22 PM EDT [facility] Hematocrit 40.5 35.0 - 47.0 % 01/08/2025 2:22 PM EDT [facility] MCV 84 81 - 101 fL 01/08/2025 2:22 PM EDT [facility] MCH 28.6 27.0 - 34.0 pg 01/08/2025 2:22 PM EDT [facility] MCHC 34.1 32.0 - 36.0 GM/DL 01/08/2025 2:22 PM EDT [facility] RDW 13.8 11.5 - 14.5 % 01/08/2025 2:22 PM EDT [facility] Platelets 250 150 - 400 K/CU MM 01/08/2025 2:22 PM EDT [facility] MPV 9.9 9.4 - 12.4 fL 01/08/2025 2:22 PM EDT [facility] Nucleated Red Blood Cell 0.0 0 - 0.2 % 01/08/2025 2:22 PM EDT [facility] % Neutros 70 37 - 80 % 01/08/2025 2:22 PM EDT [facility] % Lymphs 22 10 - 50 % 01/08/2025 2:22 PM EDT [facility] % Monos 5 5 - 13 % 01/08/2025 2:22 PM EDT [facility] % Eos 2 0 - 7 % 01/08/2025 2:22 PM EDT [facility] % Baso 0 0 - 3 % 01/08/2025 2:22 PM EDT [facility] NRBC Absolute <0.01 0 - 0.012 K/ul 01/08/2025 2:22 PM EDT [facility] # Neutros 4.73 2.00 - 6.90 K/ L 01/08/2025 2:22 PM EDT [facility] # Lymphs 1.47 0.60 - 3.40 K/ L 01/08/2025 2:22 PM EDT [facility] # Monos 0.33 0.00 - 0.90 K/ L 01/08/2025 2:22 PM EDT [facility] # Eos 0.16 0.00 - 0.70 K/ L 01/08/2025 2:22 PM EDT [facility] # Baso 0.03 0.00 - 0.20 K/ L 01/08/2025 2:22 PM EDT [facility] Immature Granulocytes-Re lative 0.30 % 01/08/2025 2:22 PM EDT [facility] # IG 0.02(H) 0.00 - 0.00 K/uL 01/08/2025 2:22 PM EDT [facility] Blood Venipuncture / Unknown 01/08/2025 2:05 PM EDT 01/08/2025 2:07 PM EDT Narrative [facility] - 01/08/2025 2:22 PM EDT When CBC w/ Auto Diff is ordered the lab will add a Manual Differential as a quality check at no additional charge if: Lymphocytes greater than seventy five percent with normal or increased WBC Monocytes greater than Fifteen percent Basophil greater than four percent Bands >10% or several immature myeloids are seen on scan Blast? Flag noted Atypical Lymph flag noted us Lg Chu MD LAB BLOOD ORDERABLES Final Re sult [facility] [address] [place] [address], [facility] [phone] * (ABNORMAL) Urinalysis, Reflex Microscopic and Culture If Indicated (01/08/2025 2:05 PM EDT) Color, UA Dark Yellow 01/08/2025 2:46 PM EDT [facility] Clarity, UA Slightly Cloudy 01/08/2025 2:46 PM EDT [facility] Specific [place], UA 1.025 1.002 - 1.030 01/08/2025 2:46 PM EDT [facility] pH, UA 6.0 5.0 - 9.0 01/08/2025 2:46 PM EDT [facility] Leukocytes, UA Negative Negative 01/08/2025 2:46 PM EDT [facility] Nitrite, UA Negative Negative 01/08/2025 2:46 PM EDT [facility] Protein, UA Trace(A) Negative 01/08/2025 2:46 PM EDT [facility] Glucose, UA Negative Negative 01/08/2025 2:46 PM EDT [facility] Ketones, UA 1+(A) Negative 01/08/2025 2:46 PM EDT [facility] Bilirubin, UA 1+(A) Negative 01/08/2025 2:46 PM EDT [facility] Blood, UA Trace(A) Negative 01/08/2025 2:46 PM EDT [facility] Urobilinogen, UA 1.0 mg/dL Normal 01/08/2025 2:46 PM EDT [facility] Specimen Source Urine, Clean Catch 01/08/2025 2:46 PM EDT [facility] Urine URINE SPECIMEN COLLECTION, CLEAN CATCH / Unknown 01/08/2025 2:05 PM EDT 01/08/2025 2:07 PM EDT Lg Chu MD URINE ORDERABLES Final Result [facility] [address] [place] [address] * (ABNORMAL) Urinalysis Microscopic Only (01/08/2025 2:05 PM EDT) WBC, UA Occasional None Seen, Occasional , 0-5 /HPF 01/08/2025 2:48 PM EDT [facility] RBC, UA Rare None Seen, Rare /HPF 01/08/2025 2:48 PM EDT [facility] Bacteria, UA Trace(A) None Seen 01/08/2025 2:48 PM EDT [facility] Mucus Trace Trace 01/08/2025 2:48 PM EDT [facility] SQUAMOUS EPITHELIAL Occasional(A) None Seen, Rare /HPF 01/08/2025 2:48 PM EDT [facility] Ca Oxalate [place], UA 2+(A) (none) 01/08/2025 2:48 PM EDT [facility] HYALINE CASTS 5-10(A) None Seen, Rare /LPF 01/08/2025 2:48 PM EDT [facility] Urine URINE SPECIMEN COLLECTION, CLEAN CATCH / Unknown 01/08/2025 2:05 PM EDT 01/08/2025 2:07 PM EDT Lg Chu MD URINE ORDERABLES Final Result Performing Organization Address City/[facility]/ZIP Co de Phone Number [facility] [address] [place] [address], [facility] [phone] * MRSA Screen (01/08/2025 2:05 PM EDT) Pathologist [facility] [place] MRSA by PCR [facility] MRSA Not Detected by PCR MRSA Not Detected by PCR DEVICE ID9 01/09/2025 12:45 AM EDT [facility] Nasal BOTH ANTERIOR NARES / Unknown 01/08/2025 2:05 PM EDT 01/08/2025 2:10 PM EDT us Lg Chu MD MICROBIOLOGY - GENERAL ORDERA BLES Final Result Performing Organization Address [facility]/ZIP Co de Phone Number [facility] [address] [place] [phone] [phone] * (ABNORMAL) Comprehensive metabolic panel (01/08/2025 2:05 PM EDT) [facility] Sodium 140 136 - 145 meq/L 01/08/2025 2:57 PM EDT [facility] Potassium 3.7 3.5 - 5.1 meq/L 01/08/2025 2:57 PM EDT [facility] Chloride 105 98 - 107 meq/L 01/08/2025 2:57 PM EDT [facility] CO2 26 21 - 32 meq/L 01/08/2025 2:57 PM EDT [facility] Calcium 9.4 8.5 - 10.1 mg/dL 01/08/2025 2:57 PM EDT [facility] Glucose 118(H) 70 - 99 mg/dL 01/08/2025 2:57 PM EDT [facility] BUN 10 7 - 18 mg/dL 01/08/2025 2:57 PM EDT [facility] Creatinine 0.73 0.55 - 1.10 mg/dL 01/08/2025 2:57 PM EDT [facility] BUN/Creatinine 14 01/08/2025 2:57 PM EDT [facility] Albumin 3.7 3.4 - 5.0 g/dL 01/08/2025 2:57 PM EDT [facility] Alkaline Phosphatase 123(H) 46 - 116 U/L 01/08/2025 2:57 PM EDT [facility] ALT 21 12 - 78 U/L 01/08/2025 2:57 PM EDT [facility] AST 16 15 - 37 U/L 01/08/2025 2:57 PM EDT [facility] Total Bilirubin 0.7 0.2 - 1.0 mg/dL 01/08/2025 2:57 PM EDT [facility] Protein, Total 6.9 6.4 - 8.2 gm/dL 01/08/2025 2:57 PM EDT [facility] Anion Gap 13 11 - 22 01/08/2025 2:57 PM EDT [facility] A/G Ratio 1.2 01/08/2025 2:57 PM EDT [facility] Globulin 3.2 g/dL 01/08/2025 2:57 PM EDT [facility] Osmolality Calc 279.5 mOsm/kg 2:57 PM EDT [facility] eGFR (mL/min/1.73m2) >60 >=60 mL/min/1.7 3m2 01/08/2025 2:57 PM EDT [facility] Comment:ESTIMATED GFR IS NOT ACCURATE CREATININE CLEARANCE IN PREDICTING GLOMERULAR FILTRATION RATE. ESTIMATED GFR IS NOT APPLICABLE FOR DIALYSIS PATIENTS. Blood Venipuncture / Unknown 01/08/2025 2:05 PM EDT 01/08/2025 2:07 PM EDT us Lg Chu MD LAB BLOOD ORDERABLES Final Re sult [facility] [address] [place] [address], [facility] [phone] * X-ray chest PA and lateral (01/08/2025 1:53 PM EDT) Anatomical Region Laterality Modality Chest X-Ray 01/08/2025 3:03 PM EDT Impressions 01/08/2025 4:36 PM EDT No acute cardiopulmonary process. Images reviewed, interpreted, and dictated by Dr. Kat Talley. Transcribed by Vanda Singh PA-C. Narrative 01/08/2025 4:36 PM EDT TWO-VIEW CHEST. HISTORY: Preop, osteoarthritis of the knee. COMPARISON: None. FINDINGS: The cardiac silhouette is normal in size. The mediastinum is unremarkable. The lungs are clear. There is no pneumothorax. There is no acute osseous abnormality. Procedure Note Kat Talley MD - 01/08/2025 TWO-VIEW CHEST. HISTORY: Preop, osteoarthritis of the knee. COMPARISON: None. FINDINGS: The cardiac silhouette is normal in size. The mediastinum is unremarkable. The lungs are clear. There is no pneumothorax. There is no acute osseous abnormality. IMPRESSION: No acute cardiopulmonary process. Images reviewed, interpreted, and dictated by Dr. Kat Talley. Transcribed by Vanda Singh PA-C. Lg Chu MD IMG DIAGNOSTIC IMAGING ORDERA BLES Final Result * CT lower extremity without IV contrast right (01/08/2025 1:46 PM EDT) Anatomical Region Laterality Modality Lower Extremity, Hip, Femur, Leg, Knee, Ankle, Foot Computed Tomography (CT) 01/08/2025 3:21 PM EDT Impressions 01/08/2025 4:18 PM EDT Tricompartmental osteoarthritis of the right knee, greatest at the medial compartment. Images reviewed, interpreted, and dictated by Dr. Krish Byers. Transcribed by Shimon Curtis PA-C Narrative 01/08/2025 4:[address] SCAN RIGHT LOWER EXTREMITY 01/08/2025 1:28 PM HISTORY: Knee osteoarthritis. [facility] protocol. COMPARISON: None. PROCEDURE: Axial images were obtained through the lower extremity by computed tomography. Sagittal and coronal reconstruction images were performed. This study was performed with techniques to keep radiation doses as low as reasonably achievable, (ALARA). Individualized dose reduction techniques using automated exposure control or adjustment of mA and/or kV according to the patient size were employed. FINDINGS: No acute bony abnormality is identified. Moderately advanced narrowing is seen in the medial compartment with prominent osteophyte formation at the medial and lateral joint margins. Small osteophytes are seen at the undersurface of the patella. Procedure Note Krish Byers MD - 01/08/2025 CT SCAN RIGHT LOWER EXTREMITY 01/08/2025 1:28 PM HISTORY: Knee osteoarthritis. [facility] protocol. COMPARISON: None. PROCEDURE: Axial images were obtained through the lower extremity by computed tomography. Sagittal and coronal reconstruction images were performed. This study was performed with techniques to keep radiation doses as low as reasonably achievable, (ALARA). Individualized dose reduction techniques using automated exposure control or adjustment of mA and/or kV according to the patient size were employed. FINDINGS: No acute bony abnormality is identified. Moderately advanced narrowing is seen in the medial compartment with prominent osteophyte formation at the medial and lateral joint margins. Small osteophytes are seen at the undersurface of the patella. IMPRESSION: Tricompartmental osteoarthritis of the right knee, greatest at the medial compartment. Images reviewed, interpreted, and dictated by Dr. Krish Byers. Transcribed by Shimon Curtis PA-C Lg Chu MD IM CT ORDERABLES Final Resul t from Last 3 Months Insurance AETNA [facility] Advance Directives For more information, please contact: [phone] * Full Code (Latest Code Status on File) Date Activated Date Inactivated Comments 01/17/2025 3:01 PM 01/17/2025 8:05 PM * Full Code Date Activated Date Inactivated Comments 01/17/2025 10:23 AM 01/17/2025 3:01 PM Healthcare Agents on File Name Relationship Healthcare Agent [facility] p Communication Colton Arias Significant Other Healthcare Decision-Saul dickinson Care Teams Tool Rental Technician Relationship Specialty Start Date End Date Provider, Not In System [place] PCP - General 01/08/25
--- OUTSIDE RECORDS SUMMARY | 2025-03-25 15:34 | XMS_ITS | Referral Summary ---
Author Organization [employer] ([place], [place], [place], [place]) Address [address] [place] [address] Care Team Providers Care Laborer Pipelines Name Role Phone Provider, Not In System Primary Care Provider Un available Encounters Date Type Department Care Team Description 03/22/[address] [phone] Lg Chu MD OTHER 03/20/[address] [address] Lg Chu MD requesting something for pain 03/19/2025 Travel 03/19/2025 3:00 PM EDT Evaluation [facility] OP Physical Therapy [address] [place] [phone] Lg Chu MD Ladd, Grace A, PT S/P total knee arthroplasty, right (Primary Dx) 03/16/[address] [address] Lg Chu MD Medication Refill 03/15/[address] [address] Lg Chu MD Patient called 03/15/2025 10:00 AM EDT Office Visit [place] [address] Lg Chu MD S/P total knee arthroplasty, right (Primary Dx) 03/13/[address] [address] Lg Chu MD 03/05/2025 2:00 PM EDT Office Visit [address] [address] Lg Chu MD S/P total knee arthroplasty, right (Primary Dx) 02/01/2025 10:25 AM EDT Ancillary Procedure [address] [address] Lg Chu MD S/P total knee arthroplasty, right 02/01/2025 10:00 AM EDT Office Visit [address] [address] Lg Chu MD S/P total knee arthroplasty, right (Primary Dx) 01/31/[address] [address] Lg Chu MD Medication Refill 01/23/2025 Orders Only [facility] Operating Room [address] [place] [address] Lg Chu MD Primary osteoarthritis of right knee 01/19/[address] [address] Lg Chu MD OTHER 01/19/[address] [address] Lg Chu MD Advice Only (Pt had [...] into her pharmacy today. She uses the [facility], they close at 6:30 today and will be closed all weekend. ) 01/17/2025 1:56 PM EDT Anesthesia Event [facility] Operating Room [address] [phone] Herman Flynn, ERWIN Singh, Nicci Valadez, DO 01/17/2025 Travel 01/17/2025 1:25 PM EDT - 01/17/2025 3:18 PM EDT Surgery [facility] Operating Room [address] [place] [address] Lg Chu MD ARTHROPLASTY, KNEE, ROBOT-ASSISTED, POSSIBLE PARTIAL KNEE ARTHROPLASTY 01/17/2025 11:20 AM EDT - 01/17/2025 6:57 PM EDT Hospital Encounter [facility] Operating Room [address] [phone] Lg Chu MD Primary osteoarthritis of right knee (Primary Dx) Discharge Disposition: Home or Self Care 01/08/2025 1:45 PM EDT - 01/08/2025 2:29 PM EDT Hospital Encounter [facility] Respiratory Care [address] [place] [address] Lg Chu MD Primary osteoarthritis of right knee; Pre-op testing Discharge Disposition: Home or Self Care 01/08/2025 1:45 PM EDT Hospital Encounter [facility] Diagnostic Imaging [address] [place], [place] [phone] gL Chu MD Primary osteoarthritis of right knee; Pre-op testing Discharge Disposition: Home or Self Care 01/08/2025 Travel 01/08/2025 6:00 PM EDT Lab Patient Walk-In [facility] Lab [address] [place], [place] [phone] Lg Chu MD Primary osteoarthritis of right knee; Pre-op testing 01/08/2025 2:30 PM EDT - 01/08/2025 11:59 PM EDT Hospital Encounter [facility] Preadmissions Testing [address] [place] [address] Lg Chu MD Discharge Disposition: Home or Self Care 01/08/2025 1:19 PM EDT - 01/08/2025 1:44 PM EDT Hospital Encounter [facility] CT Imaging [address] [place] [address] Lg Chu MD Arthritis of right knee Discharge Disposition: Home or Self Care 12/28/2024 Telephone [facility] Orthopedics - [address] [address] Lg Chu MD Procedure from Last 3 Months Allergies Active Allergy Reactions Criticality Noted Date [...] depression 03/08/2023 PTSD (post-traumatic stress disorder) 03/08/2023 Social History Tobacco Use Types Packs/Day Years [...] Date Issac rded Speak language other than Sierra Leonean at home Not on file 07/17/2023 Want [...] Description 04/16/2025 2:00 PM EDT Office Visit [facility] Orthopedics - [address] [phone] Lg Chu MD [address] [place] [address] Medical Devices Implanted Type Area Copy Coordinator Device Identifier Shelf Expiration Date Model / Serial / Lot Comp Triathlon Tib Tritanium 5536-B-400 - [id number] Implanted:Qt y: 1 on 01/17/2025 by Lg Chu MD at [facility] TOTAL JOINT CONSTRUCT Right: Knee [employer]YA:[employer] [id number] 09/28/2029 5536-B-40 0 / / [id number] Comp Fem P/A Cr Beaded Sz4 R 5517-F-402 - [id number] Implanted:Qt y: 1 on 01/17/2025 by Lg Chu MD at [facility] TOTAL JOINT CONSTRUCT Right: Knee [employer] [id number] 09/20/2029 5517-F-40 2 / / [id number] 4000 Patella Triath Asym Ti [id number] 5552-L-320 - [id number] Implanted:Qt y: 1 on 01/17/2025 by Lg Chu MD at [facility] TOTAL JOINT CONSTRUCT Right: Knee [employer]YA:[employer] [id number] 09/25/2029 5552-L-32 0 / / [id number] Insrt Tib 4 12mm Kn Brng Cndrl 4470-Q-498-E - [id number] Implanted:Qt y: 1 on 01/17/2025 by Lg Chu MD at [facility] TOTAL JOINT CONSTRUCT Right: Knee [employer] [id number] 09/01/2028 5531-G-41 2-E / / [id number] Explanted Type Area Copy Coordinator Device Identifier Shelf Expiration Date Model / Serial / Lot Femoral Tibia Kit Chkpt 284213 - [id number] Explanted:Qty: 1 on 01/17/2025 at [facility] IMPLANTS Right: Knee [employer] 11/29/2029 [id number] / / [id number] Pin Bone [id number] Strl [id number] - [id number] Explanted:Qty: 1 on 01/17/2025 at [facility] IMPLANTS Right: Knee [employer] 10/03/2029 [id number] / / [id number] Pin Bone [id number] Strl [id number] - [id number] Explanted:Qty: 1 on 01/17/2025 at [facility] IMPLANTS Right: Knee [employer] 09/15/2029 [id number] / / [id number] Procedures Procedure Name Priority Date/Time Associated Diagnosis [...] ANESTHESIA INTUBATION Routine 01/17/2025 2:02 PM EDT [place] ARTHRP KNE CONDYLE&PLATU MEDIAL&LAT COMPARTMENTS 01/17/2025 1:55 [...] PLAN OF CARE (01/19/2025 2:03 PM EDT) us Lg Chu MD OUTPATIENT REFERRAL ORDERABLE S Final Result * AN SINGLE LUMEN INTUBATION (01/17/2025 2:02 PM EDT) Gia Chavarria CRNA - 01/17/2025 2:02 PM EDT Gia [...] 4 Number of attempts at approach: 1 Gia Cee CRNA ANESTHESIA ORDERABLES Final Result * Tissue Exam (01/17/2025 1:34 PM EDT) AP RESULT See Note: [facility] Comment: [facility] [address] [place] [address] or [phone] René Kimball M.D., [place] Filler PATIENT NAME LABORATORY NO. [id number] [id number] AGE SEX SSN CLIENT REF # [place] [id number] 02/24/1980 F [id number] DONTAE REQUESTING Rodolfo ATTENDING [place] [address] DATE COLLECTED DATE RECEIVED DATE REPORTED 01/17/2025 01/17/2025 01/18/2025 DIAGNOSIS: BONE FRAGMENTS, GROSS ONLY, RIGHT KNEE: Changes consistent with osteoarthritis RLL/sdl CLINICAL HISTORY: Unilateral primary osteoarthritis, right knee SPECIMENS RECEIVED: BONE FRAGMENTS, GROSS ONLY, RIGHT KNEE Professional interpretation rendered by René Kimball M.D., F.C.A.P. at [facility], [address] [place] [address]. GROSS DESCRIPTION: Specimen received in formalin labeled [...] AND ELECTRONICALLY SIGNED BY: René Kimball M.D., FVish. CPT CODES: 91481 Tissue STRUCTURE OF RIGHT KNEE REGION / Unknown 01/17/2025 1:34 PM EDT us Lg Chu MD PATHOLOGY/CYTOLOGY ORDERABLES Final Result [facility] [address] [place] [address] * HC PERIPHERAL NERVE BLOCK SINGLE SHOT (01/17/2025 12:46 PM EDT) Narrative Nicci Singh DO - 01/17/2025 12:46 PM EDT Nicci Singh DO 01/17/2025 12:59 PM Peripheral Nerve Block Authorized by: Nicci Singh DO Performed by: Ncici Singh DO Patient location during procedure: pre-op Start time: 01/17/2025 12:46 PM End time: 01/17/2025 12:50 PM Reason for block: at surgeon's request and post-op pain management Preanesthetic Checklist Completed: patient identified, IV checked, site marked, risks and benefits discussed, surgical consent, monitors and equipment checked, pre-op evaluation and timeout performed Peripheral Block Patient position: supine Prep: ChloraPrep Patient monitoring: heart rate, accordion tuner and continuous pulse ox Block type: adductor [...] rate change: no Slow fractionated injection: yes Nicci Singh DO ANESTHESIA ORDERABLES Fin al Result * Screen, urine (01/17/2025 11:23 AM EDT) Preg Test, Ur Negative Negative, Inconclusive 01/17/2025 11:40 AM EDT [facility] Urine URINE SPECIMEN COLLECTION, CLEAN CATCH / Unknown 01/17/2025 11:23 AM EDT 01/17/2025 11:34 AM EDT Lg Chu MD URINE ORDERABLES Final Result Performing Organization Address [facility] [[email or web address]] de Phone Number [facility] [address] [place] [address] * ECG 12 lead (01/08/2025 2:05 PM EDT) Pathologist [facility] VENTRICULAR RATE EKG/MIN 82 BPM GE MUSE ATRIAL RATE (MCT) 82 BPM GE MUSE [place] Interval 146 ms GE MUSE QRS-INTERVAL (MSEC) 84 ms GE MUSE QT Interval 362 ms GE MUSE QTC Interval 422 ms GE MUSE P [place] 63 degrees GE MUSE R AXIS (MCT) 43 degrees GE MUSE T Wave [place] 47 degrees GE MUSE [place] Diagnosis Normal sinus rhythm Normal ECG No previous ECGs available Confirmed by Rodolfo MAGANA RICHARD ([id number]) on 01/08/2025 3:36:19 PM GE MUSE 01/08/2025 2:05 PM EDT 01/08/2025 3:36 PM EDT us Lg Chu MD ECG ORDERABLES Final Result Performing Organization Address [facility] Co de Phone Number GE MUSE * (ABNORMAL) CBC with automated diff (01/08/2025 2:05 PM EDT) Pathologist [facility] WBC 6.7 4.8 - 10.8 K/ L 01/08/2025 2:22 PM EDT [facility] RBC 4.83 3.50 - 5.20 M/ L 01/08/2025 2:22 PM EDT [facility] Hemoglobin 13.8 11.7 - 15.8 GM/DL 01/08/2025 2:22 PM EDT [facility] Hematocrit 40.5 35.0 - 47.0 % 01/08/2025 2:22 PM EDT [facility] MCV 84 81 - 101 fL 01/08/2025 2:22 PM EDT [facility] MCH 28.6 27.0 - 34.0 pg 01/08/2025 2:22 PM EDT [facility] MCHC 34.1 32.0 - 36.0 GM/DL 01/08/2025 2:22 PM EDT [facility] RDW 13.8 11.5 - 14.5 % 01/08/2025 2:22 PM EDT [facility] Platelets 250 150 - 400 K/CU MM 01/08/2025 2:22 PM EDT [facility] MPV 9.9 9.4 - 12.4 fL 01/08/2025 2:22 PM EDT [facility] Nucleated Red Blood Cell 0.0 0 - 0.2 % 01/08/2025 2:22 PM EDT [facility] % Neutros 70 37 - 80 % 01/08/2025 2:22 PM EDT [facility] % Lymphs 22 10 - 50 % 01/08/2025 2:22 PM EDT [facility] % Monos 5 5 - 13 % 01/08/2025 2:22 PM EDT [facility] % Eos 2 0 - 7 % 01/08/2025 2:22 PM EDT [facility] % Baso 0 0 - 3 % 01/08/2025 2:22 PM EDT [facility] NRBC Absolute <0.01 0 - 0.012 K/ul 01/08/2025 2:22 PM EDT [facility] # Neutros 4.73 2.00 - 6.90 K/ L 01/08/2025 2:22 PM EDT [facility] # Lymphs 1.47 0.60 - 3.40 K/ L 01/08/2025 2:22 PM EDT [facility] # Monos 0.33 0.00 - 0.90 K/ L 01/08/2025 2:22 PM EDT [facility] # Eos 0.16 0.00 - 0.70 K/ L 01/08/2025 2:22 PM EDT [facility] # Baso 0.03 0.00 - 0.20 K/ L 01/08/2025 2:22 PM EDT [facility] Immature Granulocytes-Re lative 0.30 % 01/08/2025 2:22 PM EDT [facility] # IG 0.02(H) 0.00 - 0.00 K/uL 01/08/2025 2:22 PM EDT [facility] Blood Venipuncture / Unknown 01/08/2025 2:05 PM EDT 01/08/2025 2:07 PM EDT Narrative [facility] - 01/08/2025 2:22 PM EDT [...] MD LAB BLOOD ORDERABLES Final Re sult [facility] [address] [place], [place] [address] [phone] * (ABNORMAL) Urinalysis, Reflex Microscopic and Culture If Indicated (01/08/2025 2:05 PM EDT) Color, UA Dark Yellow 01/08/2025 2:46 PM EDT [facility] Clarity, UA Slightly Cloudy 01/08/2025 2:46 PM EDT [facility] Specific [place], UA 1.025 1.002 - 1.030 01/08/2025 2:46 PM EDT [facility] pH, UA 6.0 5.0 - 9.0 01/08/2025 2:46 PM EDT [facility] Leukocytes, UA Negative Negative 01/08/2025 2:46 PM EDT [facility] Nitrite, UA Negative Negative 01/08/2025 2:46 PM EDT [facility] Protein, UA Trace(A) Negative 01/08/2025 2:46 PM EDT [facility] Glucose, UA Negative Negative 01/08/2025 2:46 PM EDT [facility] Ketones, UA 1+(A) Negative 01/08/2025 2:46 PM EDT [facility] Bilirubin, UA 1+(A) Negative 01/08/2025 2:46 PM EDT [facility] Blood, UA Trace(A) Negative 01/08/2025 2:46 PM EDT [facility] Urobilinogen, UA 1.0 mg/dL Normal 01/08/2025 2:46 PM EDT [facility] Specimen Source Urine, Clean Catch 01/08/2025 2:46 PM EDT [facility] Urine URINE SPECIMEN COLLECTION, CLEAN CATCH / Unknown 01/08/2025 2:05 PM EDT 01/08/2025 2:07 PM EDT us Lg Chu MD URINE ORDERABLES Final Result Performing Organization Address City/State/[facility] Co de Phone Number [facility] [address] [place] [address] * (ABNORMAL) Urinalysis Microscopic Only (01/08/2025 2:05 PM EDT) WBC, UA Occasional None Seen, Occasional , 0-5 /HPF 01/08/2025 2:48 PM EDT [facility] RBC, UA Rare None Seen, Rare /HPF 01/08/2025 2:48 PM EDT [facility] Bacteria, UA Trace(A) None Seen 01/08/2025 2:48 PM EDT [facility] Mucus Trace Trace 01/08/2025 2:48 PM EDT [facility] SQUAMOUS EPITHELIAL Occasional(A) None Seen, Rare /HPF 01/08/2025 2:48 PM EDT [facility] Ca Oxalate [place], UA 2+(A) (none) 01/08/2025 2:48 PM EDT [facility] HYALINE CASTS 5-10(A) None Seen, Rare /LPF 01/08/2025 2:48 PM EDT [facility] Urine URINE SPECIMEN COLLECTION, CLEAN CATCH / Unknown 01/08/2025 2:05 PM EDT 01/08/2025 2:07 PM EDT Lg Chu MD URINE ORDERABLES Final Result Performing Organization Address [facility]/ZIP Co de Phone Number [facility] [address] [id number], [facility] [phone] * MRSA Screen (01/08/2025 2:05 PM EDT) Pathologist [facility] MRSA by PCR [facility] MRSA Not Detected by PCR MRSA Not Detected by PCR DEVICE ID9 01/09/2025 12:45 AM EDT [facility] Nasal BOTH ANTERIOR NARES / Unknown 01/08/2025 2:05 PM EDT 01/08/2025 2:10 PM EDT Lg Chu MD MICROBIOLOGY - GENERAL ORDERA BLES Final Result [facility] [address] [place] [address], [facility] [phone] * (ABNORMAL) Comprehensive metabolic panel (01/08/2025 2:05 PM EDT) Pathologist [facility] Sodium 140 136 - 145 meq/L 01/08/2025 2:57 PM EDT [facility] Potassium 3.7 3.5 - 5.1 meq/L 01/08/2025 2:57 PM EDT [facility] Chloride 105 98 - 107 meq/L 01/08/2025 2:57 PM EDT [facility] CO2 26 21 - 32 meq/L 01/08/2025 2:57 PM EDT [facility] Calcium 9.4 8.5 - 10.1 mg/dL 01/08/2025 2:57 PM EDT [facility] Glucose 118(H) 70 - 99 mg/dL 01/08/2025 2:57 PM EDT [facility] BUN 10 7 - 18 mg/dL 01/08/2025 2:57 PM EDT [facility] Creatinine 0.73 0.55 - 1.10 mg/dL 01/08/2025 2:57 PM EDT [facility] BUN/Creatinine 14 01/08/2025 2:57 PM EDT [facility] Albumin 3.7 3.4 - 5.0 g/dL 01/08/2025 2:57 PM EDT [facility] Alkaline Phosphatase 123(H) 46 - 116 U/L 01/08/2025 2:57 PM EDT [facility] ALT 21 12 - 78 U/L 01/08/2025 2:57 PM EDT [facility] AST 16 15 - 37 U/L 01/08/2025 2:57 PM EDT [facility] Total Bilirubin 0.7 0.2 - 1.0 mg/dL 01/08/2025 2:57 PM EDT [facility] Protein, Total 6.9 6.4 - 8.2 gm/dL 01/08/2025 2:57 PM EDT [facility] Anion Gap 13 11 - 22 01/08/2025 2:57 PM EDT [facility] A/G Ratio 1.2 01/08/2025 2:57 PM EDT [facility] Globulin 3.2 g/dL 01/08/2025 2:57 PM EDT [facility] Osmolality Calc 279.5 mOsm/kg 2:57 PM EDT [facility] eGFR (mL/min/1.73m2) >60 >=60 mL/min/1.7 3m2 01/08/2025 2:57 PM EDT [facility] Comment:ESTIMATED GFR IS NOT ACCURATE CREATININE CLEARANCE IN PREDICTING GLOMERULAR FILTRATION RATE. ESTIMATED GFR IS NOT APPLICABLE FOR DIALYSIS PATIENTS. Blood Venipuncture / Unknown 01/08/2025 2:05 PM EDT 01/08/2025 2:07 PM EDT Lg Chu MD LAB BLOOD ORDERABLES Final Re sult [facility] [address] [phone] * X-ray chest PA and lateral (01/08/2025 [...] Kat Talley. Transcribed by Vanda Singh PA-C. us Lg Chu MD IMG DIAGNOSTIC IMAGING [...] by Shimon Curtis PA-C Lg Chu MD [facility] ORDERABLES Final Resul t from Last 3 Months Insurance [employer] [facility] Advance Directives For more information, please contact: [phone] * Full Code (Latest Code Status on File) Date Activated Date Inactivated Comments 01/17/2025 3:01 PM 01/17/2025 8:05 PM * Full Code Date Activated Date Inactivated Comments 01/17/2025 10:23 AM 01/17/2025 3:01 PM Healthcare Agents on File Name Relationship Healthcare Agent Relationshi p Communication Colton Arias Significant Other Healthcare Decision-Saul dickinson Care Teams Laborer Pipelines Relationship Specialty Start Date End Date Provider, Not In System [place] PCP - General 01/08/25
--- OUTSIDE RECORDS SUMMARY | 2025-03-25 15:34 | XMS_ITS | Encounter Summary ---
Author Organization [place] [address] Care Team Providers Care Music Publisher Name Role Phone RasheedMichellesaKiko Osorio DO Primary Care Provide r Reason for Visit * Reason Onset Date Comments Other 03/22/2025 Encounter Details Date Type Department Care Team (Late st Contact Info) Description 03/22/2025 Telephone [facility] [address] [facility] [address] [place] [address] Flaquita Washington, Clerical Staff Other Social History Tobacco Use Types Packs/Day Years Used Date Smoking Tobacco: Never Comments Unknown Sex and Gender Information Value Date Recorded Sex Assigned at Not on file Legal Sex Female 3:02 PM EST Gender Identity Not on file Sexual Orientation Not on file documented as of this encounter Miscellaneous Notes * Telephone Encounter - Leatha Saeed Clerical Staff - 03/22/2025 11:07 AM EDT Called and left message on refer by Reji Thorne for SVT- HR [id number] scanned in chart Schedule first available with first available provider * Telephone Encounter - Flaquita Washington Clerical Staff - 03/22/2025 10:52 AM EDT Reji Fall is requesting an URGENT REFERRAL for this patient to be seen for SVT HR running [id number]. Scanned records into media. Please advise and call @ [phone] Thank you documented in this encounter Plan of Treatment Upcoming Encounters Date Type Department Care Team (Late st Contact Info) Description 05/07/2025 3:15 PM EST Office Visit [facility] [address] [place] [address] Roxie Iyer, DECORATIVE ENGRAVER [address] [place] [address] documented as of this encounter Goals Goal Patient Goal Type Associated Problems Recent Progress Patient-Stated? Author Maintain a healthy diet, exercise regularly and maintain an ideal body weight General No Jasper Mars MA documented as of this encounter Visit Diagnoses Not on filedocumented in this encounter Care Teams Music Publisher Relationship Specialty Start Date End Date Cira Rasheed [place] [address] [place] [phone] PCP - General Family Medicine 01/01/25 documented as of this encounter
--- OUTSIDE RECORDS SUMMARY | 2025-03-25 15:34 | XMS_ITS | Clinical Summary ---
Author Organization [facility] Address [address] [place] [address] Care Team Providers Care Volumetric Weigher Name Role Phone Pierce Iban MALACHI Primary Care Provider [phone] Allergies No known active allergies Medications DULoxetine [...] in each lobe. Bron and raise in [place]. Started iodine drops a couple of months [...] age to complete this topic Care Teams Volumetric Weigher Relationship Specialty Start Date End Date Iban Pelayo APRN [address] [phone] PCP - General Family Medicine 06/03/23
--- OUTSIDE RECORDS SUMMARY | 2025-03-25 15:34 | XMS_ITS | Clinical Summary ---
Author Organization [facility] Address [address] [place] [address] Phone Care Team Providers Care Swimming Coach Name Role Phone Cira Rasheed DO Primary Care Provide r Allergies [...] mouth daily. From Psychiatry Dr. Iban Pelayo- [facility] 4 Active tiZANidine (ZANAFLEX) 4 mg [...] , started 08/2019- Reviewed MRI completed at [facility] MRI shows disc bulge L3-L5 She is currently in physical therapy which has provided minimal relief, encouraged her to continue We discussed establishing with pain specialist - discussed potential treatment plans including epidural Continue gabapentin dosing to 300 mg TID instead of current dose of 300 mg AM four times/ day Last Assessment & Plan: Chronic , started 08/2019- Reviewed MRI completed at [facility] MRI shows disc bulge L3-L5 She is currently in physical therapy which has provided minimal relief, encouraged her to continue We discussed establishing with pain specialist - discussed potential treatment plans including epidural Continue gabapentin dosing to 300 mg TID instead of current dose of 300 mg AM four times/ day Chronic , started 08/2019- Reviewed MRI completed at [facility] MRI shows disc bulge L3-L5 She is currently in physical therapy which has provided minimal relief, encouraged her to continue We discussed establishing with pain specialist - discussed potential treatment plans including epidural Continue gabapentin dosing to 300 mg TID instead of current dose of 300 mg AM four times/ day Last Assessment & Plan: Chronic , started 08/2019- Reviewed MRI completed at [facility] MRI shows disc bulge L3-L5 She is currently in physical therapy which has provided minimal relief, encouraged her to continue We discussed establishing with pain specialist - discussed potential treatment plans including epidural Continue gabapentin dosing to 300 mg TID instead of current dose of 300 mg AM four times/ day Scoliosis 05/08/2020 History of brain concussion 02/26/2020 Overview (12/28/2024): [id number], slipped on wet floor, vertigo and some temporary memory loss MDD (major depressive disord er), recurrent episode, moderate 10/03/2019 Overview (09/10/2023): Chronic worsening Currently on Cymbalta 60 mg daily and Remeron 30 mg Previously tried : Lexapro, Prozac ( no benefit ) Currently seeing a bilingual social worker , previously saw psychiatry but is no longer. Last Assessment & Plan: Chronic worsening Currently on Cymbalta 60 mg daily and Remeron 30 mg Previously tried : Lexapro, Prozac ( no benefit ) Currently seeing a bilingual social worker , previously saw psychiatry but [...] Type Department Care Team Description 03/22/2025 Telephone [facility] [address] [address] Flaquita Washington, Clerical Staff Other 01/03/2025 Orders Only [facility] [address] [place] [address] Jasper Mars MA Family history of thyroid disease in sister (Primary Dx) 01/03/2025 Results Follow-Up [facility] [address] [place] [address] Cira Rasheed, COMPREHENSIVE METABOLIC PANEL, LIPID SCREEN, HEMOGLOBIN A1C, Additional followed-up results: 4 01/01/2025 Orders Only [facility] [address] [place] [address] Cira Rasheed DO Preoperative clearance (Primary Dx); Screening for lipid disorders 12/28/2024 1:20 PM EDT Office Visit [facility] [address] [place] [address] Cira Rasheed DO Preoperative clearance (Primary Dx); Chronic pain of right knee; History of brain concussion; Screening for lipid disorders; Screening for diabetes mellitus (DM); History of iron deficiency; Low serum ferritin level; Family history of thyroid disease in sister; Vertigo 12/25/2024 Travel from Last 3 Months Family History Medical [...] 3:15 PM EST Office Visit [facility] [address] [place] [phone] Roxie Iyer, ENVIRONMENTAL CHANGE ANALYST [address] [place] [address] Health Maintenance Due Date Last Done Comments Annual Wellness Exam 02/24/1985 Hepatitis B Vaccine (1 of 3 - 19+ 3-dose series) 02/24/2001 Cervical Cancer Screening 02/24/2003 Pap Smear 02/24/2003 HPV/Pap Cotest 02/25/2012 Breast Cancer Screening 02/24/2022 COVID-19 Vaccine ( season) 2025 06/18/2021, 11/02/2020, 10/12/2020 Influenza Vaccine [...] * (ABNORMAL) IRON+TIBC (12/28/2024 2:38 PM EDT) Pathologist [facility] Iron 45 30 - 160 mcg/dL 12/28/2024 7:44 PM EDT [facility], [facility] Transferrin 258 200 - 360 mg/dL 12/28/2024 7:44 PM EDT [facility], [facility] Transferrin Saturation 12(L) 20 - 50 % 12/28/2024 7:44 PM EDT [facility], [facility] TIBC 361 250 - 400 mcg/dL 12/28/2024 7:44 PM EDT [facility], [facility] Blood VENOUS BLOOD / Unknown Venipuncture / Unknown 12/28/2024 2:38 PM EDT 12/28/2024 2:46 PM EDT Cira Rasheed DO CHEMISTRY ORDERABLES Final Result Performing Organization Address [facility]/ZIP Co de Phone Number [facility], [facility] [address] [facility] , [place] [address] * (ABNORMAL) THYROID PEROXIDASE (TPO) ANTIBODY (12/28/2024 2:38 PM EDT) [facility] TPO Ab 11.86(H) <=5.59 IU/mL 12/28/2024 8:46 PM EDT [facility], [facility] Blood VENOUS BLOOD / Unknown Venipuncture / Unknown 12/28/2024 2:38 PM EDT 12/28/2024 2:46 PM EDT Cira Rasheed DO IMMUNOLOGY ORDERABLES Final Result Performing Organization Address [facility]/ZIP Co de Phone Number [facility] [address] [facility] , [place] [address] * TSH REFLEX TO FT4 (12/28/2024 2:38 PM EDT) [facility] TSH Reflex 2.500 0.270 - 4.200 mcIU/mL 12/28/2024 7:44 PM EDT [facility] Blood VENOUS BLOOD / Unknown Venipuncture / Unknown 12/28/2024 2:38 PM EDT 12/28/2024 2:46 PM EDT Narrative [facility] - 12/28/2024 7:44 PM EDT Ingestion of [place] doses of biotin (>5 mg/day) taken within 8 hours of drawing blood sample can interfere with this immunoassay test. Cira Rasheed DO CHEMISTRY ORDERABLES Final Result Performing Organization Address City/[facility]/ZIP Co de Phone Number [facility] [address] , [place] [address] * HEMOGLOBIN A1C (12/28/2024 2:38 PM EDT) [facility] Hgb A1C 5.6 4.2 - 5.6 % 12/28/2024 8:49 PM EDT [facility] Est. Avg Glucose 114 mg/dL 12/28/2024 8:49 PM EDT [facility] Blood VENOUS BLOOD / Unknown Venipuncture / Unknown 12/28/2024 2:38 PM EDT 12/28/2024 2:46 PM EDT Narrative [facility] - 12/28/2024 8:49 PM EDT REFERENCE RANGE: Normal: 4.0-5.6% Pre-diabetes: 5.7-6.4% Provisional diagnosis of diabetes: >6.4% Hgb F>10% and anything which shortens red cell survival, such as hemolytic anemia, or unstable hemoglobin variants such as HbSS, HbSC, or HbCC, will lower the HbA1c value associated with a given level of glycemic control. Cira Rasheed DO CHEMISTRY ORDERABLES Final Result Performing Organization Address City/[facility]/ZIP Co de Phone Number [facility] [address] [facility] , [place] [address] * FERRITIN (12/28/2024 2:38 PM EDT) [facility] Ferritin 32 30 - 150 ng/mL 12/28/2024 7:43 PM EDT [employer] Comment:The lower threshold of 30 is not [...] EDT 12/28/2024 2:46 PM EDT Narrative [facility] - 12/28/2024 7:43 PM EDT Ingestion of [place] doses of biotin (>5 mg/day) taken within 8 hours of drawing blood sample can interfere with this immunoassay test. Cira Rasheed DO CHEMISTRY ORDERABLES Final Result [facility] [employer] [address] [facility] , [place] [address] * (ABNORMAL) LIPID SCREEN (12/28/2024 2:38 PM EDT) [facility] Cholesterol 212(H) <200 mg/dL 12/28/2024 7:43 PM EDT [employer] Comment: < 200 Desirable 200 - 239 Borderline High >= 240 High Triglyceride 102 <150 mg/dL 12/28/2024 7:43 PM EDT [employer] Comment: < 150 Normal 150 - 199 Borderline High 200 - 499 High >= 500 Very High HDL 49 >=40 mg/dL 12/28/2024 7:43 PM EDT [employer] Comment: > 60 Optimal 40 - 60 Acceptable < 40 Low LDL Calculated 145(H) <100 mg/dL 12/28/2024 7:43 PM EDT [employer] Comment: < 100 Optimal 100 - 129 [...] 2:38 PM EDT 12/28/2024 2:46 PM EDT us Cira Rasheed DO CHEMISTRY ORDERABLES Final Result [facility] [address] [facility] , [address] [place] [id number] * COMPREHENSIVE METABOLIC PANEL (12/28/2024 2:38 PM [...] 12/28/2024 7:43 PM EDT [facility] Bili Total 0.2 0.2 - 1.3 mg/dL 12/28/2024 7:43 PM EDT [facility] ALT 19 <=41 U/L 12/28/2024 7:43 PM EDT [facility], [facility] AST 17 <=40 U/L 12/28/2024 7:43 PM EDT [facility], [facility] Alk Phos 114 36 - 123 U/L 12/28/2024 7:43 PM EDT [facility], [facility] eGFR (CKD-EPIcr 2020) 98 >=60 mL/min/1.7 3 m2 12/28/2024 7:43 PM EDT [facility], [facility] Comment:Estimated GFR was ca lculated using the CKD-EPIcr (2020) equation refit without race. The equation is recommended by the National Kidney Foundation - [place] [employer] of Nephrology Task Force. Blood VENOUS BLOOD / Unknown Venipuncture / Unknown 12/28/2024 2:38 PM EDT 12/28/2024 2:46 PM EDT Cira Rasheed DO CHEMISTRY ORDERABLES Final Result [facility], [facility] [address] [facility] , [place] [address] * POCT EKG (12/28/2024 2:16 PM EDT) 12/28/2024 2:16 PM EDT [facility] - 12/28/2024 2:16 PM EDT Rate, rhythm, axis, intervals wnl. No pattern of ischemia or injury. Cira Rasheed DO POINT OF CARE CARDIOL OGY Final Result SEP OFFICE from Last 3 Months Insurance [facility]ID [facility] [address] [facility] [place] [address] [facility] [address] Care Teams Swimming Coach Relationship Specialty Start Date End Date Cira Rasheed DO [address] [place] [address] [address] [address] PCP - General Family Medicine 01/01/25
--- OUTSIDE RECORDS SUMMARY | 2025-03-25 15:34 | XMS_ITS | Encounter Summary ---
Author Organization [employer] ([place], [place], [place], [place]) Address [address] [place] [address] Care Team Providers Care Model Maker Apprentice Name Role Phone Provider, Not In System Primary Care Provider Un available Reason for Visit * Reason Onset Date Comments requesting something for pain 03/20/2025 Encounter Details Date Type Department Care Team (Late st Contact Info) Description 03/20/2025 Telephone [facility] Orthopedics - [address] [phone] Lg Chu MD [address] [place] [phone] requesting something for pain Social History Tobacco Use Types Packs/Day Years [...] Date Issac rded Speak language other than Marshallese at home Not on file 07/17/2023 Want [...] encounter Miscellaneous Notes * Telephone Encounter - Kelly Callahan Carla - 03/20/2025 4:03 PM EDT Pt is requesting pain medication. I advised pt she is 2 months post surgery and did get 2 post surgery rx's but I would send a message to see if there was anything she can take or do for the pain. She [facility] [place] She states she has been using ice and elevating her knee. [facility] documented in this encounter Plan of Treatment Upcoming Encounters Date Type Department Care Team (Late st Contact Info) Description 04/16/2025 2:00 PM EDT Office Visit [facility] Orthopedics - [address] [phone] Lg Chu MD [address] [place] [phone] documented as of this encounter Visit Diagnoses Not on filedocumented in this encounter Care Teams Model Maker Apprentice Relationship Specialty Start Date End Date Provider, Not In System [place] PCP - General 01/08/25 documented as of this encounter
--- OUTSIDE RECORDS SUMMARY | 2025-03-25 15:34 | XMS_ITS | CCD ---
Author Name Interface, [id number] lity Address [address] [place] [id number] [facility] Oncology an d Hematology Address [address] [place] [id number] Care Team Providers Care Manager Of Procurement Name Role Phone Courtney FARR, [place] Unavailable Unavailable Allergies and Adverse Reactions Medication/Group Name Reaction Severity Date gluten 09/26/2024 lactose 09/26/2024 Care Plan Date Type Value 11/07/2024 APPOINTMENT FOLLOW UP 09/26/2024 APPOINTMENT Lab 09/26/2024 APPOINTMENT NEW PATIENT 09/26/2024 LABORDER Ferritin 09/26/2024 LABORDER Iron profile 09/26/2024 LABORDER Vitamin B12 09/26/2024 LABORDER CBC w/ auto diff 09/26/2024 LABORDER CMP Reason for Visit FOLLOW UP Encounters Date Name 09/26/2024 Coagulation/bleeding tests abnormal (finding) Diagnostic Results Date Type Test Units Lower Limit Upper Limit Result Flag Comments Status Ordered By Specimen Source Lab Address 09/26 Brea tin panel Brea tin ng/mL 15.0 150.0 45 FINAL [facility] , [address] [facility] [id number] 9 Terry Manrique i, PhD 09/26 Iron profi le Iron, % satur ation % 15.0 55.0 11 Low FINAL [place] [facility] [phone], [address] [facility] [phone] 9 Terry Manrique i, PhD 09/26 Iron profi le Iron ug/dL 27.0 159.0 36 FINAL [place] [facility] , [address] [facility] [phone] 9 Terry Manrique i, PhD 09/26 Iron profi le TIBC ug/dL 250.0 450.0 326 FINAL [place] [facility] [place] [phone], [address] [facility] [place] [id number] 9 Terry Manrique i, PhD 09/26 Iron profi le Unbou nd iron capac ity ug/dL 131.0 425.0 290 FINAL [place] [facility] [phone], [address] [facility] [place] [phone] 9 Terry Manrique i, PhD 09/26 Vitam in B12 pg/mL 232.0 1245.0 1798 High FINAL [place] [facility] [phone], [address] [facility] [place] [id number] 9 Terry Manrique i, PhD 09/26 Alkal ine phosp hatas e IU/L 44.0 121.0 127 High FINAL [place] [facility] [phone], [address] [facility] [place] [phone] 9 Terry Manrique i, PhD 09/26 Calci um mg/dL 8.7 10.2 9.7 FINAL [place] [facility] [phone], [address] [facility] [place] [phone] 9 Terry Manrique i, PhD 09/26 ALT/S GPT IU/L 0.0 32.0 22 FINAL [place] [facility] [phone], [address] [facility] [place] [phone] 9 Terry Manrique i, PhD 09/26 CO2 mmol/L 20.0 29.0 23 FINAL [place] [facility] [phone], [address] [facility] [place] [phone] 9 Terry Manrique i, PhD 09/26 Gluco se mg/dL 70.0 99.0 101 High FINAL [place] [facility] [place] [phone], [address] [facility] [place] [phone] 9 Terry Manrique i, PhD 09/26 Globu ceci g/dL 1.5 4.5 2.4 FINAL [place] [facility] , [address] [facility] [phone] 9 Terry Manrique i PhD 09/26 Chlor roseline mmol/L 96.0 106.0 105 FINAL [place] [facility] [place] , [address] [facility] [phone] 9 Terry Manrique i PhD 09/26 Total prote in g/dL 6.0 8.5 6.7 FINAL [place] [facility] , [address] [facility] [phone] 9 Terry Manrique i PhD 09/26 BUN mg/dL 6.0 24.0 9 FINAL [place] [facility] , [address] [facility] [phone] 9 Terry Manrique i PhD 09/26 Creat inine mg/dL 0.57 1.0 0.91 FINAL [place] [facility] , [address] [facility] [phone] 9 Terry Manrique i PhD 09/26 eGFR mL/min /1.73 81 FINAL [place] [facility] , [address] [facility] [phone] 9 Terry Manrique i, PhD 09/26 AST/S GOT IU/L 0.0 40.0 24 FINAL [place] [facility] , [address] [facility] [phone] 9 Terry Manrique i PhD 09/26 Album in g/dL 3.9 4.9 4.3 FINAL [place] [facility] , [address] [facility] [phone] 9 Terry Manrique i PhD 09/26 Bilir ubin, total mg/dL 0.0 1.2 0.2 FINAL [place] [facility] , [address] [facility] [phone] 9 Terry Manrique i PhD 09/26 Sodiu m mmol/L 134.0 144.0 142 FINAL [place] [facility] [place] [phone], [address] [facility] [phone] 9 Terry Manrique i PhD 09/26 BUN/C reati nine ratio 9.0 23.0 10 FINAL [place] [facility] [place] [phone], [address] [facility] [phone] 9 Terry Manrique i PhD 09/26 Potas sium mmol/L 3.5 5.2 4.4 FINAL [place] [facility] [place] [phone], [address] [facility] [phone] 9 Terry Manrique i PhD 09/26 Josue # (ANC) x10E3/ uL 1.4 7.0 3.7 FINAL [place] [facility] [place] [phone], [address] [facility] [id number] 9 Terry Manrique i PhD 09/26 MCV fL 79.0 97.0 87 FINAL [place] [facility] [place] [phone], [address] [facility] [phone] 9 Terry Manrique i PhD 09/26 MO # x10E3/ uL 0.1 0.9 0.4 FINAL [place] [facility] [place] [phone], [address] [facility] [phone] 9 Terry Manrique i PhD 09/26 IG % % 0 FINAL [place] [facility] [place] [phone], [address] [facility] [phone] 9 Terry Manrique i PhD 09/26 MO % % 6 FINAL [place] [facility] [place] [phone], [address] [facility] [phone] 9 Terry Manrique i PhD 09/26 IG # x10E3/ uL 0.0 0.1 0.0 FINAL [place] [facility] [place] [phone], [address] [facility] [phone] 9 Terry Manrique i PhD 09/26 Immat ure cells No result FINAL [place] [facility] [place] [phone], [address] [facility] [phone] 9 Terry Manrique i, PhD 09/26 EO # x10E3/ uL 0.0 0.4 0.2 FINAL [place] [facility] [place] [phone], [address] [facility] [phone] 9 Terry Manrique i, PhD 09/26 EO % % 3 FINAL [place] [facility] [place] , [address] [facility] [id number] 9 Terry Manrique i, PhD 09/26 RBC x10E6/ uL 3.77 5.28 5.12 FINAL [place] [facility] [place] [phone], [address] [facility] [phone] 9 Terry Manrique i, PhD 09/26 NRBC, % 0 FINAL [place] [facility] [place] [phone], [address] [facility] [phone] 9 Terry Manrique i, PhD 09/26 WBC x10E3/ uL 3.4 10.8 5.7 FINAL [place] [facility] [place] [phone], [address] [facility] [phone] 9 Terry Manrique i, PhD 09/26 PLT x10E3/ uL 150.0 450.0 256 FINAL [place] [facility] [place] [phone], [address] [facility] [phone] 9 Terry Manrique i, PhD 09/26 BA % % 1 FINAL [place] [facility] [place] [phone], [address] [facility] [phone] 9 Terry Manrique i, PhD 09/26 BA # x10E3/ uL 0.0 0.2 0.1 FINAL [place] [facility] [place] [phone], [address] [facility] [phone] 9 Terry Manrique i, PhD 09/26 CBC Comme nts No result FINAL [place] [facility] [place] , [address] [facility] [place] [phone] 9 Terry Manrique i, PhD 09/26 HGB g/dL 11.1 15.9 14.6 FINAL [place] [facility] [place] , [address] [facility] [place] [phone] 9 Terry Manrique i, PhD 09/26 RDW % 11.7 15.4 13.6 FINAL [place] [facility] [place] , [address] [facility] [place] [phone] 9 Terry Manrique i, PhD 09/26 LY % % 25 FINAL [place] [facility] [place] , [address] [facility] [place] [phone] 9 Terry Manrique i, PhD 09/26 MCH pg 26.6 33.0 28.5 FINAL [place] [facility] [place] , [address] [facility] [phone] 9 Terry Manrique i, PhD 09/26 LY # x10E3/ uL 0.7 3.1 1.4 FINAL [place] [facility] [place] , [address] [facility] [phone] 9 Terry Manrique i, PhD 09/26 MCHC g/dL 31.5 35.7 32.9 FINAL [place] [facility] [place] , [address] [facility] [phone] 9 Terry Manrique i, PhD 09/26 HCT % 34.0 46.6 44.4 FINAL [place] [facility] [place] , [address] [facility] [phone] 9 Terry Manrique i, PhD 09/26 Josue % % 65 FINAL [place] [facility] [place] , [address] [facility] [phone] 9 Terry Manrique i, PhD 09/26 PDF Repor t1 See attache fierro FINAL [place] [facility] [place] , [address] [facility] [phone] 9 Terry Manrique i, PhD Medications Date [...] this ongoing evaluation. Respectfully, Sunny Valdez M.D. [facility] Oncology and Hematology Problem List * Coagulation/bleeding [...]
== END 2025-03-25 23:59 | disposition home or self-care (01) ==
LOC: RT 15:31
PROVIDERS: PCP Family Medicine; Visit Provider Nurse Practitioner Family
DX: I49.1 Atrial premature depolarization (principal); I49.3 Ventricular premature depolarization
CPT/HCPCS: 93270; 93272

== ENCOUNTER 2025-04-04 09:37 | Outpatient (RCR) | payer OTHER, SELFPAY | END 2025-04-04 23:59 | disposition home or self-care (01) | LOC: PT 09:37 | PROVIDERS: Visit Provider Orthopaedic Surgery | DX: Z47.89 Encounter for other orthopedic aftercare (principal); Z96.651 Presence of right artificial knee joint | CPT/HCPCS: 97163 ==